=== PATIENT | male | born 1935 | race Caucasian/White ===

== ENCOUNTER → 2017-04-28 | Outpatient (CLI) | payer MEDICARE ==
--- NOTE | 2017-04-28 22:01 | XR ---
EXAMINATION TYPE: XR knee complete RT DATE OF EXAM: 04/28/2017 COMPARISON: NONE HISTORY: 81-year-old male right knee pain TECHNIQUE: 3 views FINDINGS: Moderate to severe joint space narrowing suggested in the patellofemoral compartment with marginal sp urring. Trace knee joint effusion. Mild marginal spurring in the medial compartment. No acute fractur e or dislocation seen. Extensor mechanism intact. Vascular calcifications noted. IMPRESSION: Tricompartmental osteoarthrosis, this may be moderate to severe in the patellofemoral compartment and at least mild in the medial compartment. Trace knee joint effusion likely reactive. No acute osseous abnormality seen.
== END ==
LOC: RADXRYALE 16:18
PROVIDERS: ATTEND Physician Assistant Medical
DX: M17.11 Unilateral primary osteoarthritis, right knee (principal)

== ENCOUNTER 2017-11-27 10:51 | Emergency (ER) | payer MEDICARE ==
[2017-11-27] MEDS ORDERED: MORPHINE SULFATE 2 MG/ML SYRINGE IVP STA ×2 (11:03→12:21)
--- NOTE | 2017-11-27 11:15 | ED ---
Wound/Laceration HPI - General Chief Complaint: Wound/Laceration Stated Complaint: PUNCTURE RT WRIST ARTERY Time Seen by Provider: 11/27/17 10:55 Source: patient, EMS Mode of arrival: EMS Limitations: no limitations - History of Present Illness Initial Comments: This is an 82-year-old male who presents emergent department for right forearm laceration. The patient states that he was cutting some wire with a utility knife when he suddenly hit his arm. He states that he immediately had "shooting " blood coming from his arm. He drove himself to an urgent care and [place] who called EMS. A tourniquet was placed due to the amount of bleeding that he was having any was transferred here. The tourniquet has been on for approximately one hour. The patient consented planes mostly of pain from the tourniquet. States he has not had any other injuries. some tingling in his fingertips. No other acute complaints at this time. - Related Data Home Medications Medication Instructions Recorded Confirmed Aspirin EC [Ecotrin] 325 mg PO DAILY 01/13/16 11/27/17 Atorvastatin [Lipitor] 20 mg PO HS 01/13/16 11/27/17 Metoprolol Tartrate [Lopressor] 50 mg PO BID 01/13/16 11/27/17 Ramipril 10 mg PO DAILY 01/13/16 11/27/17 Previous Rx's Medication Instructions Recorded Cephalexin [Keflex] 500 mg PO BID #14 cap 11/27/17 Allergies Allergy/AdvReac Type Severity Reaction Status Date / Time No Known Allergies Allergy Verified 11/27/17 11:21 Review of Systems ROS Statement: Those systems with pertinent positive or pertinent negative responses have been documented in the HPI. ROS Other: All systems not noted in ROS Statement are negative. Past Medical History Past Medical History: Coronary Artery Disease (CAD), Hyperlipidemia, Hypertension, Osteoarthritis (OA) History of Any Multi-Drug Resistant Organisms: None Reported Past Surgical History: Appendectomy, Cholecystectomy, Coronary Bypass/CABG Past Anesthesia/Blood Transfusion Reactions: No Reported Reaction Past Psychological History: No Psychological Hx Reported Smoking Status: Former smoker Past Alcohol Use History: Occasional Past Drug Use History: None Reported - Past Family History Mother Family Medical History: Coronary Artery Disease (CAD) Father History Unknown: Yes General Exam - General Exam Comments Initial Comments: Constitutional: Awake alert Appears comfortable Head: Normocephalic atraumatic Eyes: no conjunctival injection No scleral icterus EOMI Neck: No JVD Supple Heart: Regular rate rhythm normal S1-S2 no murmurs Lungs: Clear to auscultation bilaterally No wheezing No rales Abdomen: Soft nondistended nontender Extremities: Non edematous DP pulses intact, there is a 1.5 center laceration to the lateral aspect of the dorsum of the right forearm approximately 6-7 cm proximal to the wrist, currently no bleeding because of the tourniquet, there is a blood clot there, patient has duskiness to the entire arm below the tourniquet however is able to move his fingers and has sensation, no other injuries noticed Neuro: A&Ox3 No focal neurologic deficits Psych: Appropriate mood and affect Limitations: no limitations Course Vital Signs 11/27/17 11/27/17 11/27/17 10:54 11:07 13:00 Temperature 97.3 F L 97.3 F L Pulse Rate 74 57 L Respiratory 28 H 20 Rate Blood Pressure 164/117 139/93 105/56 O2 Sat by Pulse 98 Oximetry Procedures - Laceration Laceration #1 Consent Obtained: verbal consent Time Out Performed: No Indication: laceration Site: upper extremity Size (cm): 1 Description: linear Depth: simple, single layer, arterial injury Type of Sutures: nylon Size of Sutures: 4-0 Number of Sutures: 3 Technique: simple, interrupted Patient Tolerated Procedure: well, no complications (Procedure performed emergently to control bleeding. Was cleaned with betadine prior. Blood clot seen at wound site. [address] without anesthesia. Pt tolerated well.) Medical Decision Making - Medical Decision Making This is an 82-year-old male who presents emergency department for a laceration. Per the patient it was squirting blood at the urgent care. Upon arrival he had a tourniquet in place. In order to control bleeding 3 sutures were placed emergently. Betadine was used to clean the wound. It was not irrigated so not to disrupt the clot that was present at the site. Was unable to evaluate the wound due to emergent closure. CTA was performed to evaluate for vascular injury and showed a patent radial and ulnar artery. I did speak with Dr. Venkata saenz about possibility of opening the wound and an operative setting to evaluate further however he stated if the CT was normal this was likely not required. The patient has good radial and ulnar pulses. Has good perfusion to the hand. Has no numbness, tingling, or weakness in the extremity at all. Patient wants to go home. He was given a dose of Ancef and a tetanus shot. He' ll be sent home on Keflex. Told of the sutures removed in 10-[address] Hastings's information for follow-up. - Lab Data Result diagrams: 11/27/17 11:14 11/27/17 11:14 Lab Results 11/27/17 11/27/17 11/27/17 Range/Units 11:14 11:14 11:14 WBC 7.1 (3.8-10.6) k/uL RBC 4.83 (4.30-5.90) m/uL Hgb 14.3 (13.0-17.5) gm/dL Hct 43.0 (39.0-53.0) % MCV 89.0 (80.0-100.0) fL MCH 29.5 (25.0-35.0) pg MCHC 33.2 (31.0-37.0) g/dL RDW 12.8 (11.5-15.5) % Plt Count 167 (150-450) k/uL Neutrophils % 50 % Lymphocytes % 35 % Monocytes % 8 % Eosinophils % 3 % Basophils % 0 % Neutrophils # 3.5 (1.3-7.7) k/uL Lymphocytes # 2.5 (1.0-4.8) k/uL Monocytes # 0.6 (0-1.0) k/uL Eosinophils # 0.2 (0-0.7) k/uL Basophils # 0.0 (0-0.2) k/uL PT 10.0 (9.0-12.0) sec INR 1.0 (<1.2) APTT 22.2 (22.0-30.0) sec Sodium 139 (137-145) mmol/L Potassium 4.7 (3.5-5.1) mmol/L Chloride 102 (98-107) mmol/L Carbon Dioxide 23 (22-30) mmol/L Anion Gap 14 mmol/L BUN 17 (9-20) mg/dL Creatinine 0.83 (0.66-1.25) mg/dL Est GFR (CKD-EPI)AfAm >90 (>60 ml/min/1.73 sqM) Est GFR (CKD-EPI)NonAf 83 (>60 ml/min/1.73 sqM) Glucose 131 H (74-99) mg/dL Calcium 8.8 (8.4-10.2) mg/dL Disposition Clinical Impression: Laceration Disposition: HOME SELF-CARE Condition: Stable Instructions: Laceration (ED) Additional Instructions: Sutures removed in 10-14 days by your primary doctor. Take Keflex twice a day for [address] Fonseca in the vascular doctor and you can follow up with him as needed. Return for tingling, pain, weakness, or duskiness of your fingertips/ hand. Prescriptions: Cephalexin [Keflex] 500 mg PO BID #14 cap Is patient prescribed a controlled substance at d/c from ED?: No Referrals: Jose Swenson DO [Primary Care Provider] - 1-2 days
[2017-11-27 11:34] LABS: Basophils % (A) 0 %; Eosinophils # (A) 0.2 k/uL (0-0.7); Eosinophils % (A) 3 %; HGB 14.3 gm/dL (13.0-17.5); Lymphocytes # (A) 2.5 k/uL (1.0-4.8); Lymphocytes % (A) 35 %; MCH 29.5 pg (25.0-35.0); MCHC 33.2 g/dL (31.0-37.0); Mean Platelet Volume 7.2; Monocytes # (A) 0.6 k/uL (0-1.0); Monocytes % (A) 8 %; Neutrophils # (A) 3.5 k/uL (1.3-7.7); Neutrophils % (A) 50 %; Platelet Count 167 k/uL (150-450); RBC 4.83 m/uL (4.30-5.90); RDW 12.8 % (11.5-15.5); WBC 7.1 k/uL (3.8-10.6)
[2017-11-27 11:46] LABS: Anion Gap 14 mmol/L; Blood Urea Nitrogen 17 mg/dL (9-20); Calcium 8.8 mg/dL (8.4-10.2); Carbon Dioxide 23 mmol/L (22-30); Chloride 102 mmol/L (98-107); Glucose 131 mg/dL (74-99); Potassium 4.7 mmol/L (3.5-5.1); Sodium 139 mmol/L (137-145)
[2017-11-27 11:51] LABS: Partial Thromboplastin Time 22.2 sec (22.0-30.0)
--- NOTE | 2017-11-27 12:40 | CT ---
EXAMINATION TYPE: CT angio upper extremity RT DATE OF EXAM: 11/27/2017 12:30 PM COMPARISON: NONE HISTORY: Puncture at right wrist artery CT DLP: 1985.20 mGycm Automated exposure control for dose reduction was used. TECHNIQUE: Contrast enhanced CTA of the right upper extremity was performed with IV Contrast, patient injected w ith 100 ml mL of Isovue 370. . FINDINGS: There is poor opacification of the ulnar artery. There the radial artery is noted through the level o f the wrist. There appears to be soft tissue laceration radial side of the wrist at its palmar aspect . There is a small hematoma noted adjacent to the radial artery however the radial artery appears to be patent without evidence for vascular injury although opacification is less than ideal. No evidence for active extravasation. No evidence for radiopaque foreign body. Osseous structures are intact without evidence for fracture or lesion. IMPRESSION: 1. Less than ideal opacification of the vasculature distal to the elbow however the radial artery is visualized throughout its course and there appears to be no evidence for radial artery injury. Small laceration noted adjacent to the radial artery with small hematoma identified.
[2017-11-27] MEDS ORDERED: ceFAZolin 1,000 MG in DEXTROSE/WATER 1 50ML.BAG IVPB STA (12:42)
[2017-11-27] MEDS ORDERED: DIPH,PERTUS(ACELL)TETVAC-LF 0.5 ML VIAL IM ONE (12:42)
[2017-11-27 13:14] VITALS: RESP 20
[2017-11-27 14:06] VITALS: BP 110/56; PULSE 78; TEMP 97.6
== END 2017-11-27 14:00 | disposition home or self-care (01) ==
LOC: EC 10:51
DX: S51.811D Laceration without foreign body of right forearm, subsequent encounter (principal); I25.10 Atherosclerotic heart disease of native coronary artery without angina pectoris; E78.5 Hyperlipidemia, unspecified; I10 Essential (primary) hypertension; Z87.891 Personal history of nicotine dependence; Z79.82 Long term (current) use of aspirin; Z79.899 Other long term (current) drug therapy; Z95.5 Presence of coronary angioplasty implant and graft; Z53.29 Procedure and treatment not carried out because of patient's decision for other reasons; Z23 Encounter for immunization; W26.0XXD Contact with knife, subsequent encounter
CPT/HCPCS: 99284 ×2; 12001 ×2; 96365 ×2; 96375 ×2; 90471 ×2; 99282; 36415; 80048; 85025; 85610; 85730; 73206; 90715; J2001; J2270; J0690; Q9967

== ENCOUNTER 2017-11-27 18:55 | Emergency (ER) | payer MEDICARE ==
[2017-11-27 19:06] VITALS: BP 151/82; PULSE 74; RESP 16; TEMP 98
[2017-11-27] MEDS ORDERED: LIDOCAINE 1% INJ 10MG/ML (20 ML MDV) SQ ONE (19:14)
--- NOTE | 2017-11-27 19:31 | ED ---
General Adult HPI - General Chief complaint: Recheck/Abnormal Lab/Rx Stated complaint: Wrist lacertion Time Seen by Provider: 11/27/17 19:09 Source: patient Mode of arrival: ambulatory Limitations: no limitations - History of Present Illness Initial comments: This is an 82-year-old male who presented for rebleeding of his right wrist laceration. I evaluated the patient earlier today and he had a CTA that showed an intact radial artery. I spoke with Dr. Hastings do not feel that any further workup was appropriate. He left the department with controlled bleeding. He states that he got home in the bleeding reoccurred so he turned around and came back to emergency department. He denies any lightheadedness or chest pain. No shortness of breath. No other complaints. - Related Data Home Medications Medication Instructions Recorded Confirmed Aspirin EC [Ecotrin] 325 mg PO DAILY 01/13/16 11/27/17 Atorvastatin [Lipitor] 20 mg PO HS 01/13/16 11/27/17 Metoprolol Tartrate [Lopressor] 50 mg PO BID 01/13/16 11/27/17 Ramipril 10 mg PO DAILY 01/13/16 11/27/17 Previous Rx's Medication Instructions Recorded Cephalexin [Keflex] 500 mg PO BID #14 cap 11/27/17 Allergies Allergy/AdvReac Type Severity Reaction Status Date / Time No Known Allergies Allergy Verified 11/27/17 19:06 Review of Systems ROS Statement: Those systems with pertinent positive or pertinent negative responses have been documented in the HPI. ROS Other: All systems not noted in ROS Statement are negative. Past Medical History Past Medical History: Coronary Artery Disease (CAD), Hyperlipidemia, Hypertension, Osteoarthritis (OA) History of Any Multi-Drug Resistant Organisms: None Reported Past Surgical History: Appendectomy, Cholecystectomy, Coronary Bypass/CABG Past Anesthesia/Blood Transfusion Reactions: No Reported Reaction Past Psychological History: No Psychological Hx Reported Smoking Status: Former smoker Past Alcohol Use History: Occasional Past Drug Use History: None Reported - Past Family History Mother Family Medical History: Coronary Artery Disease (CAD) Father History Unknown: Yes General Exam - General Exam Comments Initial Comments: Constitutional: Awake alert Appears comfortable Head: Normocephalic atraumatic Eyes: no conjunctival injection No scleral icterus EOMI Neck: No JVD Supple Heart: Regular rate rhythm normal S1-S2 no murmurs Lungs: Clear to auscultation bilaterally No wheezing No rales Abdomen: Soft nondistended nontender Extremities: Non edematous DP pulses intact Radial pulses intact, laceration to the dorsum of the right wrist appears intact without any active bleeding at this time Neuro: A&Ox3 No focal neurologic deficits Psych: Appropriate mood and affect Limitations: no limitations Course Vital Signs 11/27/17 19:03 Temperature 98 F Pulse Rate 74 Respiratory 16 Rate Blood Pressure 151/82 O2 Sat by Pulse 95 Oximetry Procedures - Laceration Laceration #1 Consent Obtained: verbal consent Time Out Performed: Yes Indication: laceration Site: upper extremity Size (cm): 1 Description: linear Anesthetic Used: lidocaine 1% Anesthesia Technique: local infiltration Type of Sutures: nylon Size of Sutures: 4-0 Number of Sutures: 2 Technique: horizontal mattress Patient Tolerated Procedure: well, no complications Additional Comments: 2 additional horizontal mattress sutures were placed in addition to the 3 simple sutures placed earlier today Medical Decision Making - Medical Decision Making This is an 82-year-old male who came to the emergency department for rebleeding of his laceration. The patient had 2 mattress sutures placed with good hemostasis. He had no active bleeding in the emergency department. Patient was discharged home with the same instructions given earlier today. He has Keflex. He can follow-up with his primary doctor for removal of the sutures. He is given Dr. Hastings's information as well. Disposition Clinical Impression: Laceration Disposition: HOME SELF-CARE Condition: Stable Instructions: Care For Your Stitches (ED), Laceration (ED) Is patient prescribed a controlled substance at d/c from ED?: No Referrals: None,Stated [Primary Care Provider] - 1-2 days
== END 2017-11-27 19:35 | disposition home or self-care (01) ==
LOC: EC 18:55
DX: S61.511A Laceration without foreign body of right wrist, initial encounter (principal); E78.5 Hyperlipidemia, unspecified; I10 Essential (primary) hypertension; I25.10 Atherosclerotic heart disease of native coronary artery without angina pectoris; M19.90 Unspecified osteoarthritis, unspecified site; Z87.891 Personal history of nicotine dependence; Z79.82 Long term (current) use of aspirin; Z79.899 Other long term (current) drug therapy; X58.XXXA Exposure to other specified factors, initial encounter
CPT/HCPCS: 99282; 12001; J2001

== ENCOUNTER 2021-05-25 18:33 | Observation (INO) | payer MEDICARE ==
--- NOTE | 2021-05-25 19:11 | ED ---
General Adult HPI - General Chief complaint: Chest Pain Stated complaint: Chest Pain,Cardiac Patient Time Seen by Provider: 05/25/21 18:43 Source: patient, family, RN notes reviewed, old records reviewed Mode of arrival: wheelchair Limitations: no limitations - History of Present Illness Initial comments: 85-year-old male history of CAD status post CABG presenting for evaluation of central chest pain which radiates to the left shoulder. This has been intermittent over the past several days. Pain is currently essentially nonexistent. He has taken 2 sublingual nitroglycerin with minimal relief. He denies vomiting or diaphoresis. - Related Data Home Medications Medication Instructions Recorded Confirmed Atorvastatin [Lipitor] 20 mg PO HS 01/13/16 05/25/21 Metoprolol Tartrate [Lopressor] 50 mg PO BID 01/13/16 05/25/21 Ramipril 10 mg PO DAILY 01/13/16 05/25/21 Aspirin EC [Ecotrin Low Dose] 81 mg PO DAILY 05/25/21 05/25/21 Allergies Allergy/AdvReac Type Severity Reaction Status Date / Time No Known Allergies Allergy Verified 05/25/21 20:15 Review of Systems ROS Statement: Those systems with pertinent positive or pertinent negative responses have been documented in the HPI. ROS Other: All systems not noted in ROS Statement are negative. Past Medical History Past Medical History: Coronary Artery Disease (CAD), Hyperlipidemia, Hypertension, Osteoarthritis (OA) History of Any Multi-Drug Resistant Organisms: None Reported Past Surgical History: Appendectomy, Cholecystectomy, Coronary Bypass/CABG Past Anesthesia/Blood Transfusion Reactions: No Reported Reaction Past Psychological History: No Psychological Hx Reported Smoking Status: Never smoker Past Alcohol Use History: Occasional Past Drug Use History: Marijuana - Past Family History Mother Family Medical History: Coronary Artery Disease (CAD) Father History Unknown: Yes General Exam Limitations: no limitations General appearance: alert, in no apparent distress Head exam: Present: atraumatic, normocephalic Eye exam: Present: normal appearance, PERRL ENT exam: Present: normal exam Neck exam: Present: normal inspection. Absent: tenderness, meningismus Respiratory exam: Present: normal lung sounds bilaterally. Absent: respiratory distress, wheezes Cardiovascular Exam: Present: regular rate, normal rhythm GI/Abdominal exam: Present: soft. Absent: distended, tenderness, guarding Extremities exam: Present: normal inspection, normal capillary refill. Absent: pedal edema Neurological exam: Present: alert, oriented X3, CN II-XII intact. Absent: motor sensory deficit Psychiatric exam: Present: normal affect, normal mood Skin exam: Present: warm, dry, intact. Absent: cyanosis, diaphoretic Course Vital Signs 05/25/21 05/25/21 05/25/21 18:35 19:36 19:38 Temperature 98.8 F Pulse Rate 67 68 Pulse Rate [ 73 Media Relations Associate ] Respiratory 18 18 Rate Blood Pressure 144/78 126/61 O2 Sat by Pulse 96 96 Oximetry EKG Findings - EKG Comments: EKG Findings:: EKG: Sinus bradycardia, low voltage, rate of 59 NJ interval 182, QRS duration 96, QTC 385, no ST segment elevation. Medical Decision Making - Medical Decision Making 85-year-old male presenting with intermittent chest pain over the past 3 days. History of CAD. Patient states that the pain does radiate to his left shoulder. He is chest pain-free at the time my evaluation. EKG is negative for ST segment elevation. Chest x-ray negative for acute cardiopulmonary disease. He has a normal CBC, normal CMP, negative initial troponin. Given the patient's risk factors he will be kept in observation for serial cardiac enzymes, telemetry, cardiology consultation. Case discussed with Sara call for [facility] - Lab Data Result diagrams: 05/25/21 19:38 05/25/21 19:38 Lab Results 05/25/21 05/25/21 05/25/21 Range/Units 19:38 19:38 19:38 WBC 5.4 (3.8-10.6) k/uL RBC 4.32 (4.30-5.90) m/uL Hgb 13.4 (13.0-17.5) gm/dL Hct 38.2 L (39.0-53.0) % MCV 88.4 (80.0-100.0) fL MCH 30.9 (25.0-35.0) pg MCHC 35.0 (31.0-37.0) g/dL RDW 12.4 (11.5-15.5) % Plt Count 138 L (150-450) k/uL MPV 7.6 Neutrophils % 57 % Lymphocytes % 29 % Monocytes % 8 % Eosinophils % 4 % Basophils % 0 % Neutrophils # 3.1 (1.3-7.7) k/uL Lymphocytes # 1.6 (1.0-4.8) k/uL Monocytes # 0.4 (0-1.0) k/uL Eosinophils # 0.2 (0-0.7) k/uL Basophils # 0.0 (0-0.2) k/uL PT 10.3 (9.0-12.0) sec INR 1.0 (<1.2) APTT 22.8 (22.0-30.0) sec Sodium 137 (137-145) mmol/L Potassium 4.3 (3.5-5.1) mmol/L Chloride 104 (98-107) mmol/L Carbon Dioxide 25 (22-30) mmol/L Anion Gap 8 mmol/L BUN 17 (9-20) mg/dL Creatinine 0.86 (0.66-1.25) mg/dL Est GFR (CKD-EPI)AfAm >90 (>60 ml/min/1.73 sqM) Est GFR (CKD-EPI)NonAf 80 (>60 ml/min/1.73 sqM) Glucose 113 H (74-99) mg/dL Calcium 9.2 (8.4-10.2) mg/dL Magnesium 2.0 (1.6-2.3) mg/dL Total Bilirubin 0.4 (0.2-1.3) mg/dL AST 27 (17-59) U/L ALT 20 (4-49) U/L Alkaline Phosphatase 76 (38-126) U/L Troponin I (0.000-0.034) ng/mL NT-Pro-B Natriuret Pep pg/mL Total Protein 6.5 (6.3-8.2) g/dL Albumin 3.7 (3.5-5.0) g/dL Lipase 136 (23-300) U/L 05/25/21 05/25/21 Range/Units 19:38 19:38 WBC (3.8-10.6) k/uL RBC (4.30-5.90) m/uL Hgb (13.0-17.5) gm/dL Hct (39.0-53.0) % MCV (80.0-100.0) fL MCH (25.0-35.0) pg MCHC (31.0-37.0) g/dL RDW (11.5-15.5) % Plt Count (150-450) k/uL MPV Neutrophils % % Lymphocytes % % Monocytes % % Eosinophils % % Basophils % % Neutrophils # (1.3-7.7) k/uL Lymphocytes # (1.0-4.8) k/uL Monocytes # (0-1.0) k/uL Eosinophils # (0-0.7) k/uL Basophils # (0-0.2) k/uL PT (9.0-12.0) sec INR (<1.2) APTT (22.0-30.0) sec Sodium (137-145) mmol/L Potassium (3.5-5.1) mmol/L Chloride (98-107) mmol/L Carbon Dioxide (22-30) mmol/L Anion Gap mmol/L BUN (9-20) mg/dL Creatinine (0.66-1.25) mg/dL Est GFR (CKD-EPI)AfAm (>60 ml/min/1.73 sqM) Est GFR (CKD-EPI)NonAf (>60 ml/min/1.73 sqM) Glucose (74-99) mg/dL Calcium (8.4-10.2) mg/dL Magnesium (1.6-2.3) mg/dL Total Bilirubin (0.2-1.3) mg/dL AST (17-59) U/L ALT (4-49) U/L Alkaline Phosphatase (38-126) U/L Troponin I <0.012 (0.000-0.034) ng/mL NT-Pro-B Natriuret Pep 470 pg/mL Total Protein (6.3-8.2) g/dL Albumin (3.5-5.0) g/dL Lipase (23-300) U/L Disposition Clinical Impression: Chest pain Disposition: ADMITTED IP TO THIS [facility] Condition: Stable Is patient prescribed a controlled substance at d/c from ED?: No Referrals: Jose Swenson DO [Primary Care Provider] - 1-2 days Decision to Admit Reason: Admit from EC Decision Date: 05/25/21 Decision Time: 20:39
[2021-05-25 19:55] LABS: Basophils % (A) 0 %; Eosinophils # (A) 0.2 k/uL (0-0.7); Eosinophils % (A) 4 %; HCT 38.2 % (39.0-53.0); HGB 13.4 gm/dL (13.0-17.5); Lymphocytes # (A) 1.6 k/uL (1.0-4.8); Lymphocytes % (A) 29 %; MCH 30.9 pg (25.0-35.0); MCV 88.4 fL (80.0-100.0); Mean Platelet Volume 7.6; Monocytes # (A) 0.4 k/uL (0-1.0); Monocytes % (A) 8 %; Neutrophils # (A) 3.1 k/uL (1.3-7.7); Neutrophils % (A) 57 %; Platelet Count 138 k/uL (150-450); RBC 4.32 m/uL (4.30-5.90); RDW 12.4 % (11.5-15.5); WBC 5.4 k/uL (3.8-10.6)
[2021-05-25 19:57] LABS: ALT 20 U/L (4-49); AST 27 U/L (17-59); African American GFR (CKD) >90 (>60 ml/min/1.73 sqM); Albumin 3.7 g/dL (3.5-5.0); Alkaline Phosphatase 76 U/L (38-126); Anion Gap 8 mmol/L; Blood Urea Nitrogen 17 mg/dL (9-20); Calcium 9.2 mg/dL (8.4-10.2); Carbon Dioxide 25 mmol/L (22-30); Chloride 104 mmol/L (98-107); Glucose 113 mg/dL (74-99); Lipase 136 U/L (23-300); Non-African American GFR(CKD) 80 (>60 ml/min/1.73 sqM); Potassium 4.3 mmol/L (3.5-5.1); Sodium 137 mmol/L (137-145); Total Bilirubin 0.4 mg/dL (0.2-1.3); Total Protein 6.5 g/dL (6.3-8.2)
--- NOTE | 2021-05-25 20:11 | XR ---
EXAMINATION TYPE: XR chest 2V DATE OF EXAM: 05/25/2021 COMPARISON: 01/13/2016 HISTORY: Chest pain TECHNIQUE: 2 views FINDINGS: Heart is normal. Lungs are clear of consolidation. 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 There are sternal wires. There are no rosi r masses. Thoracic spine is intact. IMPRESSION: No active cardiopulmonary disease. No change.
[2021-05-25 20:18] LABS: Partial Thromboplastin Time 22.8 sec (22.0-30.0); Prothrombin Time 10.3 sec (9.0-12.0)
[2021-05-25] MEDS ORDERED: ASPIRIN 325 MG TAB PO STA (20:31)
[2021-05-25] MEDS ORDERED: NITROGLYCERIN SL TABS 0.4 MG TAB SUBLINGUAL PRN (20:31)
[2021-05-25] MEDS ORDERED: NALOXONE 0.4 MG/ML 1 ML VIAL IV PRN (20:36)
[2021-05-25] MEDS ORDERED: ACETAMINOPHEN TAB 325 MG TAB PO PRN (20:36)
[2021-05-25] MEDS ORDERED: MORPHINE SULFATE 4 MG/ML SYRINGE IV PRN (20:36)
[2021-05-26 08:40] VITALS: PULSE 57; RESP 18
[2021-05-26] MEDS ORDERED: ASPIRIN 325 MG TAB PO SCH (09:00)
--- NOTE | 2021-05-26 10:31 | P.HPIM ---
History of Present Illness 85-year-old male with history of coronary artery disease and CABG in the past came in with complaints of chest pain 9/10 in severity restarted today on and off lasted for a few minutes and resolved with nitroglycerin radiating to the left shoulder area. Patient had nonspecific ST-T wave changes in the EKG troponins are negative. Pain is not related to food nonpleuritic in nature patient just pain started when he was on the tractor. Patient denied any syncope patient had lightheadedness diaphoresis. Currently he was consulted. REVIEW OF SYSTEMS: CONSTITUTIONAL: No fever, no malaise, no fatigue. HEENT: No recent visual problems or hearing problems. Denied any sore throat. CARDIOVASCULAR: No orthopnea, PND, no palpitations, no syncope. PULMONARY: No shortness of breath, no cough, no hemoptysis. GASTROINTESTINAL: No diarrhea, no nausea, no vomiting, no abdominal pain. NEUROLOGICAL: No headaches, no weakness, no numbness. HEMATOLOGICAL: Denies any bleeding or petechiae. GENITOURINARY: Denies any burning micturition, frequency, or urgency. MUSCULOSKELETAL/RHEUMATOLOGICAL: Denies any joint pain, swelling, or any muscle pain. ENDOCRINE: Denies any polyuria or polydipsia. The rest of the 14-point review of systems is negative. PHYSICAL EXAMINATION: GENERAL: The patient is alert and oriented x3, not in any acute distress. Well developed, well nourished. HEENT: Pupils are round and equally reacting to light. EOMI. No scleral icterus. No conjunctival pallor. Normocephalic, atraumatic. No pharyngeal erythema. No thyromegaly. CARDIOVASCULAR: S1 and S2 present. No murmurs, rubs, or gallops. PULMONARY: Chest is clear to auscultation, no wheezing or crackles. ABDOMEN: Soft, nontender, nondistended, normoactive bowel sounds. No palpable organomegaly. MUSCULOSKELETAL: No joint swelling or deformity. EXTREMITIES: No cyanosis, clubbing, or pedal edema. NEUROLOGICAL: Gross neurological examination did not reveal any focal deficits. SKIN: No rashes. Assessment and plan -Chest pain: We will rule out the acute coronary syndromes and unstable angina. Cardiology will evaluate the patient. Further management depending on cardiology. If cardiology recommends outpatient stress test patient will be discharged at that time. -Hypertension -hyperlipidemia DVT prophylaxis: Early ambulation Past Medical History Past Medical History: Coronary Artery Disease (CAD), Hyperlipidemia, Hypertension, Osteoarthritis (OA) History of Any Multi-Drug Resistant Organisms: None Reported Past Surgical History: Appendectomy, Cholecystectomy, Coronary Bypass/CABG Past Anesthesia/Blood Transfusion Reactions: No Reported Reaction Past Psychological History: No Psychological Hx Reported Smoking Status: Former smoker Past Alcohol Use History: Occasional Past Drug Use History: Marijuana - Past Family History Mother Family Medical History: Coronary Artery Disease (CAD) Father History Unknown: Yes Medications and Allergies Home Medications Medication Instructions Recorded Confirmed Type Atorvastatin [Lipitor] 20 mg PO HS 01/13/16 05/25/21 History Metoprolol Tartrate [Lopressor] 50 mg PO BID 01/13/16 05/25/21 History Ramipril 10 mg PO DAILY 01/13/16 05/25/21 History Aspirin EC [Ecotrin Low Dose] 81 mg PO DAILY 05/25/21 05/25/21 History Allergies Allergy/AdvReac Type Severity Reaction Status Date / Time No Known Allergies Allergy Verified 05/25/21 20:15 Physical Exam Vitals: Vital Signs Temp Pulse Pulse Resp BP BP Pulse Ox 05/26/21 07:00 97.6 F 57 L 18 138/65 95 05/26/21 02:00 51 L 05/26/21 01:29 98.1 F 51 L 19 116/59 94 L 05/25/21 23:04 97.9 F 53 L 17 158/69 98 05/25/21 23:03 97.7 F 53 L 18 158/69 98 05/25/21 21:30 98.3 F 52 L 18 143/60 96 05/25/21 19:38 73 05/25/21 19:36 68 18 126/61 96 05/25/21 18:35 98.8 F 67 18 144/78 96 Intake and Output 05/25/21 05/26/21 05/26/21 22:59 06:59 14:59 Other: # Voids 2 Weight 81.647 kg 81.647 kg Results CBC & Chem 7: 05/25/21 19:38 05/25/21 19:38 Labs: Abnormal Lab Results - Last 24 Hours (Table) 05/25/21 05/25/21 Range/Units 19:38 19:38 Hct 38.2 L (39.0-53.0) % Plt Count 138 L (150-450) k/uL Glucose 113 H (74-99) mg/dL Thrombosis Risk Factor Assmnt - Choose All That Apply Each Risk Factor Represents 3 Points: Age 75 years or older Thrombosis Risk Factor Assessment Total Risk Factor Score: 3 Thrombosis Risk Factor Assessment Level: Moderate Risk
[2021-05-26] MEDS ORDERED: METOPROLOL TARTRATE 50 MG TAB PO SCH (10:45)
[2021-05-26] MEDS ORDERED: lisinopriL 20 MG TAB PO SCH (10:45)
--- NOTE | 2021-05-26 14:01 | ECHOF ---
Referral Reason:Chest pain MEASUREMENTS -------- HEIGHT: 177.8 cm WEIGHT: 81.6 kg BP: 138/65 IVSd: 1.3 cm (0.6 - 1.1) LVIDd: 4.7 cm (3.9 - 5.3) LVPWd: 1.2 cm (0.6 - 1.1) IVSs: 1.7 cm LVIDs: 3.5 cm LVPWs: 1.6 cm LAESV Index (A-L): 30.64 ml/m Ao Diam: 3.9 cm (2.0 - 3.7) AV Cusp: 1.8 cm (1.5 - 2.6) MV E David: 0.54 m/s MV DecT: 160 ms MV A David: 0.74 m/s MV E/A Ratio: 0.73 AR PHT: 710 ms RAP: 5.00 mmHg RVSP: 40.13 mmHg FINDINGS -------- Resting bradycardia (HR<60bpm). This was a technically adequate study. The left ventricular size is normal. There is mild concentric left ventricular hypertrophy. Overa ll left ventricular systolic function is mildly impaired with, an EF between 45 - 50 %. Septal wall motion is delayed and consistent with prior cardiac surgery. Mid inferior LV wall motion is hypoki netic. The right ventricle is normal in size. LA is midly dilated 29-33ml/m2. The right atrium was not well visualized. Interatrial and interventricular septum intact. There is mild aortic regurgitation. There is no evidence of aortic stenosis. Mild mitral regurgitation is present. Mild tricuspid regurgitation present. There is mild pulmonary hypertension. The right ventricular systolic pressure, as measured by Doppler, is 40.13mmHg. There is no pulmonic regurgitation present. The aortic root size is normal. IVC Not well visulized. There is no pericardial effusion. CONCLUSIONS -------- 1. The left ventricular size is normal. 2. There is mild concentric left ventricular hypertrophy. 3. Overall left ventricular systolic function is mildly impaired with, an EF between 45 - 50 %. 4. Mid inferior LV wall motion is hypokinetic. 5. LA is midly dilated 29-33ml/m2. 6. There is mild aortic regurgitation. 7. Mild mitral regurgitation is present. 8. Mild tricuspid regurgitation present. 9. There is mild pulmonary hypertension. 10. The right ventricular systolic pressure, as measured by Doppler, is 40.13mmHg. FLIGHT INFORMATION EXPEDITER: Shanda Corona RDCS
--- NOTE | 2021-05-26 14:20 | P.CRDCN ---
History of Present Illness Consult date: 05/26/21 Requesting physician: Gerardo Marks Reason for Consult (text): chest pain Chief complaint: chest pain History of present illness: This is a pleasant 85-year-old gentleman who follows in the office with Dr. Swartz. He has a history of hypertension, hyperlipidemia, prior nicotine dependence, CAD with prior 5 vessel CABG over 20 years ago and ischemic cardiomyopathy with most recent echocardiogram from June 2019 showing ejection fraction of 45%. He presented to the emergency department with complaints of left-sided chest discomfort that radiated into his left shoulder, occurred at rest and could last a whole day or 2. He feels this is a different type of pain than what he experienced prior to his CABG many years ago. Cardiac enzymes have been unremarkable. EKG shows sinus bradycardia with nonspecific T- wave abnormalities but no evidence of acute ischemia and no significant change compared to previous EKG. Patient did undergo Lexiscan MPI about a year ago which showed inferior wall fixed defect with no evidence of stress-induced ischemia. The pressure was elevated last name but is well controlled this morning. Upon examination he is resting comfortably in bed. He has no further complaints of chest discomfort. He denies any shortness of breath, orthopnea or PND. He has no edema. He denies any palpitations, syncope or near syncope. Patient is quite anxious to go home. Past Medical History Past Medical History: Coronary Artery Disease (CAD), Hyperlipidemia, Hypertension, Osteoarthritis (OA) History of Any Multi-Drug Resistant Organisms: None Reported Past Surgical History: Appendectomy, Cholecystectomy, Coronary Bypass/CABG Past Anesthesia/Blood Transfusion Reactions: No Reported Reaction Past Psychological History: No Psychological Hx Reported Smoking Status: Former smoker Past Alcohol Use History: Occasional Past Drug Use History: Marijuana - Past Family History Mother Family Medical History: Coronary Artery Disease (CAD) Father History Unknown: Yes Medications and Allergies Home Medications Medication Instructions Recorded Confirmed Type Atorvastatin [Lipitor] 20 mg PO HS 01/13/16 05/25/21 History Metoprolol Tartrate [Lopressor] 50 mg PO BID 01/13/16 05/25/21 History Ramipril 10 mg PO DAILY 01/13/16 05/25/21 History Aspirin EC [Ecotrin Low Dose] 81 mg PO DAILY 05/25/21 05/25/21 History Allergies Allergy/AdvReac Type Severity Reaction Status Date / Time No Known Allergies Allergy Verified 12/03/21 20:15 Physical Exam Vitals: Vital Signs Temp Pulse Pulse Resp BP BP Pulse Ox 05/26/21 07:00 97.6 F 57 L 18 138/65 95 05/26/21 02:00 51 L 05/26/21 01:29 98.1 F 51 L 19 116/59 94 L 05/25/21 23:04 97.9 F 53 L 17 158/69 98 05/25/21 23:03 97.7 F 53 L 18 158/69 98 05/25/21 21:30 98.3 F 52 L 18 143/60 96 05/25/21 19:38 73 05/25/21 19:36 68 18 126/61 96 05/25/21 18:35 98.8 F 67 18 144/78 96 Intake and Output 05/25/21 05/26/21 05/26/21 22:59 06:59 14:59 Other: # Voids 2 Weight 81.647 kg 81.647 kg PHYSICAL EXAMINATION: This is a 85-year-old gentleman in no apparent distress at the time of my examination. VITAL SIGNS: Blood pressure 138/65, heart rate 57, respirations 18, temp 97.6F. Patient is 95 % on air. HEENT: Head is atraumatic, normocephalic. Pupils are equal, round. Sclerae anicteric. Conjunctivae are clear. Mucous membranes of the mouth are moist. Neck is supple. There is no elevated jugular venous pressure. No carotid bruit is heard. CHEST EXAMINATION: Clear to auscultation bilaterally. No wheezes rales or rhonchi. Respirations even and nonlabored. HEART EXAMINATION: Heart regular, positive S1 and S2. No S3. No S4. No clicks, rubs or murmurs. ABDOMEN: Soft, nontender. Bowel sounds are heard. No organomegaly noted. EXTREMITIES: 2+ peripheral pulses with no evidence of peripheral edema and no calf tenderness noted. NEUROLOGIC EXAMINATION: Patient is awake, alert and oriented x3. Results 05/25/21 19:38 05/25/21 19:38 Cardiac Enzymes 05/25/21 05/25/21 05/25/21 Range/Units 19:38 19:38 21:08 AST 27 (17-59) U/L Troponin I <0.012 <0.012 (0.000-0.034) ng/mL 05/26/21 Range/Units 01:30 AST (17-59) U/L Troponin I <0.012 (0.000-0.034) ng/mL Coagulation 05/25/21 Range/Units 19:38 PT 10.3 (9.0-12.0) sec APTT 22.8 (22.0-30.0) sec CBC 05/25/21 Range/Units 19:38 WBC 5.4 (3.8-10.6) k/uL RBC 4.32 (4.30-5.90) m/uL Hgb 13.4 (13.0-17.5) gm/dL Hct 38.2 L (39.0-53.0) % Plt Count 138 L (150-450) k/uL Comprehensive Metabolic Panel 05/25/21 Range/Units 19:38 Sodium 137 (137-145) mmol/L Potassium 4.3 (3.5-5.1) mmol/L Chloride 104 (98-107) mmol/L Carbon Dioxide 25 (22-30) mmol/L BUN 17 (9-20) mg/dL Creatinine 0.86 (0.66-1.25) mg/dL Glucose 113 H (74-99) mg/dL Calcium 9.2 (8.4-10.2) mg/dL AST 27 (17-59) U/L ALT 20 (4-49) U/L Alkaline Phosphatase 76 (38-126) U/L Total Protein 6.5 (6.3-8.2) g/dL Albumin 3.7 (3.5-5.0) g/dL Current Medications Generic Name Dose Route Start Last Admin Trade Name Freq PRN Reason Stop Dose Admin Acetaminophen 650 mg 05/25/21 20:36 Acetaminophen Tab 325 Mg Tab PO Q6HR PRN Mild Pain or Fever > 100.5 Aspirin 325 mg 05/26/21 09:00 05/26/21 09:17 Aspirin 325 Mg Tab PO 325 mg DAILY [facility] Administration Atorvastatin Calcium 20 mg 05/26/21 21:00 Atorvastatin 20 Mg Tab PO HS [facility] Metoprolol Tartrate 50 mg 05/26/21 10:30 Metoprolol Tartrate 50 Mg Tab PO BID [facility] Morphine Sulfate 4 mg 05/25/21 20:36 Morphine Sulfate 4 Mg/Ml Syringe IV Q4HR PRN Severe Pain Naloxone HCl 0.2 mg 05/25/21 20:36 Naloxone 0.4 Mg/Ml 1 Ml Vial IV Q2M PRN Opioid Reversal Nitroglycerin 0.4 mg 05/25/21 20:31 Nitroglycerin Sl Tabs 0.4 Mg Tab SUBLINGUAL Q5M PRN Chest Pain Non-Formulary Medication 81 mg 05/27/21 09:00 Aspirin Ec PO DAILY KESHAV Non-Formulary Medication 10 mg 05/26/21 10:30 Ramipril [Ramipril] PO DAILY KESHAV Intake and Output 05/25/21 05/26/21 05/26/21 22:59 06:59 14:59 Other: # Voids 2 Weight 81.647 kg 81.647 kg 05/25/21 19:38 05/25/21 19:38 Assessment and Plan Assessment: #1 symptoms of chest discomfort, acute coronary event has been ruled out, troponins have been negative 3 and EKG shows no acute ischemic changes #2 CAD with prior CABG 5 over 20 years ago #3 hypertension #4 hyperlipidemia Plan: From cardiology's perspective medications were reviewed and we will add an oral nitrate. We'll obtain a 2-D echo with Doppler study to assess cardiac structure and function. Increase patient's activity. If patient remains chest pain-free and there are no significant changes on echocardiogram patient may be discharged home and follow up next week in the office with Dr. Swartz. The above dictated assessment and findings were discussed with signing physician. The impression and plan of care have been directed as dictated. Vashti Salmeron, Nurse Practitioner, acting as scribe for signing physician.
[2021-05-26] MEDS ORDERED: ISOSORBIDE MONONITRATE ER 30 MG TAB.ER.24H PO SCH (14:30)
[2021-05-26 15:19] VITALS: BP 136/66; TEMP 98
[2021-05-26] MEDS ORDERED: ATORVASTATIN 20 MG TAB PO SCH (21:00)
[2021-05-27] MEDS ORDERED: ASPIRIN 81 MG PO SCH (09:00)
== END 2021-05-26 15:40 | disposition home or self-care (01) ==
LOC: EC 18:33 → 6NMEDSUR 20:37
PROVIDERS: ADMIT Hospitalist; ATTEND Hospitalist
DX: R07.89 Other chest pain (principal); I25.10 Atherosclerotic heart disease of native coronary artery without angina pectoris; R00.1 Bradycardia, unspecified; I25.5 Ischemic cardiomyopathy; E78.5 Hyperlipidemia, unspecified; I10 Essential (primary) hypertension; M19.90 Unspecified osteoarthritis, unspecified site; Z20.822 Contact with and (suspected) exposure to COVID-19; Z90.49 Acquired absence of other specified parts of digestive tract; Z95.1 Presence of aortocoronary bypass graft; Z87.891 Personal history of nicotine dependence; Z79.899 Other long term (current) drug therapy; Z79.82 Long term (current) use of aspirin; Z82.49 Family history of ischemic heart disease and other diseases of the circulatory system
CPT/HCPCS: 99285; 36415; 93005; 93306; 83880; 80053; 83690; 83735; 84484 ×2; 85025; 85610; 85730; 87635; 71046; G0378 ×2

== ENCOUNTER → 2021-12-13 | Outpatient (CLI) | payer MEDICARE ==
[2021-12-13 23:03] LABS: ALT 32 U/L (10-49); AST 25 U/L (14-35); African American GFR (CKD) 86.8 (60.0-200.0); Albumin 4.1 g/dL (3.8-4.9); Albumin/Globulin Ratio 1.64 (1.60-3.17); Alkaline Phosphatase 99 U/L (41-126); BUN/Creat Ratio 18.24 Ratio (12.00-20.00); Calcium 9.2 mg/dL (8.7-10.3); Carbon Dioxide 25.6 mmol/L (20.0-27.5); Chloride 100 mmol/L (96-109); Chol/HDL Ratio 3.34 Ratio; Globulin 2.5 g/dL (1.6-3.3); Glucose 106 mg/dL (70-110); LDL Cholesterol,Calculated 38.6 mg/dL (0.0-131.0); Non-African American GFR(CKD) 74.9 (60.0-200.0); Potassium 5.1 mmol/L (3.5-5.5); Sodium 137 mmol/L (135-145); Total Protein 6.6 g/dL (6.2-8.2)
== END | disposition home or self-care (01) ==
LOC: LABWHC1 15:47
PROVIDERS: ATTEND Internal Medicine Interventional Cardiology
DX: E78.2 Mixed hyperlipidemia (principal)
CPT/HCPCS: 36415; 80053; 80061

== ENCOUNTER 2022-03-02 12:30 | Emergency (ER) | payer MEDICARE ==
[2022-03-02 12:45] VITALS: RESP 18
[2022-03-02] MEDS ORDERED: SODIUM CHLORIDE 0.9% 1,000 ML IV STA (14:10)
[2022-03-02] MEDS ORDERED: ONDANSETRON 4 MG/2 ML VIAL IVP STA (14:10)
[2022-03-02 14:28] LABS: Basophils % (A) 0 %; Eosinophils # (A) 0.2 k/uL (0-0.7); Eosinophils % (A) 2 %; HCT 42.9 % (39.0-53.0); HGB 14.2 gm/dL (13.0-17.5); Lymphocytes # (A) 1.2 k/uL (1.0-4.8); Lymphocytes % (A) 14 %; MCH 30.1 pg (25.0-35.0); MCV 91.4 fL (80.0-100.0); Mean Platelet Volume 7.2; Monocytes # (A) 0.6 k/uL (0-1.0); Monocytes % (A) 7 %; Neutrophils # (A) 6.2 k/uL (1.3-7.7); Neutrophils % (A) 74 %; Platelet Count 178 k/uL (150-450); RDW 12.5 % (11.5-15.5); WBC 8.3 k/uL (3.8-10.6)
--- NOTE | 2022-03-02 14:40 | XR ---
EXAMINATION TYPE: XR chest 2V DATE OF EXAM: 03/02/2022 COMPARISON: 05/25/2021 HISTORY: Chest pain TECHNIQUE: FINDINGS: There is no heart failure nor confluent pneumonic infiltrate. Costophrenic angles are clear . There is mild pulmonary hyperinflation. There are sternal wires. Bony thorax is intact. There is li bulmaro a posterior right-sided diaphragmatic hernia. IMPRESSION: No active cardiopulmonary disease. No adverse change.
[2022-03-02 14:43] LABS: Calcium 9.8 mg/dL (8.4-10.2); Magnesium 1.9 mg/dL (1.6-2.3); Potassium 4.6 mmol/L (3.5-5.1); Total Bilirubin 0.5 mg/dL (0.2-1.3); Total Protein 6.4 g/dL (6.3-8.2)
--- NOTE | 2022-03-02 15:05 | CT ---
EXAMINATION TYPE: CT brain umberto wo con DATE OF EXAM: 03/02/2022 COMPARISON: None HISTORY: syncope, fall CT DLP: 1470 mGycm Automated exposure control for dose reduction was used. Images obtained of the brain and cervical spine without contrast. There is cerebral cortical atrophy. There is no mass effect or midline shift. No sign of intracranial hemorrhage. Calvarium is intact. Skull base is intact. There is normal aeration of the mastoid sinus es. Cervical vertebra have normal alignment. There is hypertrophic moderate anterior osteophyte formation from C4 to C7. Facet joints are intact. No compression fracture. Skull base is intact. There is no f ocal bone destruction. IMPRESSION: Cerebral atrophy. No acute intracranial abnormality. Spondylotic changes of the cervical spine. No fracture.
[2022-03-02 16:07] LABS: Appearance,Urine Clear (Clear); Bilirubin,Urine Negative (Negative); Blood,Urine Trace (Negative); Color,Urine Yellow; Glucose,Urine (UA) Negative (Negative); Hyaline Casts,Urine 3 /lpf (0-2); Ketones,Urine Negative (Negative); Leukocyte Esterase,Urine Negative (Negative); Mucus,Urine Rare /hpf; Nitrite,Urine Negative (Negative); PH, Urine 6.5 (5.0-8.0); Protein,Urine Trace (Negative); RBC,Urine 3 /hpf (0-5); Specific Gravity,Urine 1.016 (1.001-1.035); Squamous Epithelial Cell,Urine <1 /hpf (0-4); Urobilinogen,Urine <2.0 mg/dL (<2.0); WBC,Urine 3 /hpf (0-5)
[2022-03-02 16:17] VITALS: BP 121/65; PULSE 67; TEMP 98
--- NOTE | 2022-03-02 16:26 | ED ---
Nausea/Vomiting/Diarrhea HPI - General Chief complaint: Nausea/Vomiting/Diarrhea Stated complaint: syncope Time Seen by Provider: 03/02/22 13:58 Source: patient Mode of arrival: ambulatory Limitations: no limitations - History of Present Illness Initial comments: Patient is an 86-year-old male with past medical history of coronary artery disease s/p CABG, hypertension, hyperlipidemia, appendectomy, and cholecystectomy presents to the emergency department with a chief complaint of nausea and vomiting. Patient states he has been nauseous for the past 5 days with 2 episodes of vomiting this morning, nonbloody. Patient's son mentions that patient had a syncopal episode yesterday. It was unwitnessed. Patient states he felt well and was walking to the bathroom and then woke up on the carpet. He believes he was unconscious for about 1 minute. Denies blood thinner use but does use baby aspirin. Denies headache, neck pain and visual changes. Denies other injury. Denies fever, chills, lightheadedness, dizziness, chest pain, upper respiratory symptoms, shortness of breath, abdominal pain, diarrhea, burning with urination. Reports normal bowel movements, last one was this morning. MD complaint: nausea - Related Data Home Medications Medication Instructions Recorded Confirmed Atorvastatin [Lipitor] 20 mg PO HS 01/13/16 05/25/21 Metoprolol Tartrate [Lopressor] 50 mg PO BID 01/13/16 05/25/21 Ramipril 10 mg PO DAILY 01/13/16 05/25/21 Aspirin EC [Ecotrin Low Dose] 81 mg PO DAILY 05/25/21 05/25/21 Previous Rx's Medication Instructions Recorded Isosorbide Mononitrate ER [Imdur] 30 mg PO DAILY #30 tablet 05/26/21 Ondansetron Odt [Zofran Odt] 4 mg PO Q8HR PRN #12 tab 03/02/22 Allergies Allergy/AdvReac Type Severity Reaction Status Date / Time No Known Allergies Allergy Verified 03/02/22 12:42 Review of Systems ROS Statement: Those systems with pertinent positive or pertinent negative responses have been documented in the HPI. ROS Other: All systems not noted in ROS Statement are negative. Past Medical History Past Medical History: Coronary Artery Disease (CAD), Hyperlipidemia, Hyp ertension, Osteoarthritis (OA) History of Any Multi-Drug Resistant Organisms: None Reported Past Surgical History: Appendectomy, Cholecystectomy, Coronary Bypass/CABG Past Anesthesia/Blood Transfusion Reactions: No Reported Reaction Past Psychological History: No Psychological Hx Reported Smoking Status: Former smoker Past Alcohol Use History: Occasional Past Drug Use History: Marijuana - Past Family History Mother Family Medical History: Coronary Artery Disease (CAD) Father History Unknown: Yes General Exam Limitations: no limitations General appearance: alert, in no apparent distress Head exam: Present: atraumatic, normocephalic, normal inspection Neck exam: Present: normal inspection, full ROM. Absent: tenderness Respiratory exam: Present: normal lung sounds bilaterally. Absent: respiratory distress, wheezes, rales, rhonchi, stridor Cardiovascular Exam: Present: regular rate, normal rhythm, normal heart sounds. Absent: systolic murmur, diastolic murmur, rubs, gallop, clicks GI/Abdominal exam: Present: soft, normal bowel sounds. Absent: distended, tenderness, guarding, rebound, rigid Neurological exam: Present: alert, oriented X3, CN II-XII intact Psychiatric exam: Present: normal affect, normal mood Skin exam: Present: warm, dry, intact, normal color. Absent: rash Course Vital Signs 03/02/22 03/02/22 03/02/22 12:42 15:09 15:11 Temperature 98.1 F Pulse Rate 78 Respiratory 18 Rate Blood Pressure 105/66 Blood Pressure 116/61 [Right Arm Sitting] Blood Pressure [Right Arm Standing] Blood Pressure 116/54 [Right Arm Supine] O2 Sat by Pulse 96 Oximetry 03/02/22 03/02/22 15:13 16:15 Temperature 98.0 F Pulse Rate 67 Respiratory 18 Rate Blood Pressure 121/65 Blood Pressure [Right Arm Sitting] Blood Pressure 122/54 [Right Arm Standing] Blood Pressure [Right Arm Supine] O2 Sat by Pulse 95 Oximetry Medical Decision Making - Medical Decision Making This is an 86 year old male who presents with nausea, vomiting, syncopal episode yesterday. Patient is well-appearing and in no apparent distress. The head is atraumatic without hematoma. Abdomen is soft and nontender. Orthostatics negative. CT of the brain and C-spine is negative for acute process. Chest x-ray is unremarkable. EKG shows sinus rhythm without ST or T- wave abnormality. Laboratory studies obtained. There is no leukocytosis. Troponin is within normal limits. COVID-19 and influenza are not detected. Nausea controlled. Results discussed with patient. At this time there are no diagnostic studies to explain patient's symptoms or syncopal episode. Patient will be discharged with Zofran. He will follow up with primary care provider. Return parameters discussed. Dr. Villafana is my attending. - Lab Data Result diagrams: 03/02/22 14:15 03/02/22 14:15 Lab Results 03/02/22 03/02/22 03/02/22 Range/Units 14:15 14:15 14:15 WBC 8.3 (3.8-10.6) k/uL RBC 4.70 (4.30-5.90) m/uL Hgb 14.2 (13.0-17.5) gm/dL Hct 42.9 (39.0-53.0) % MCV 91.4 (80.0-100.0) fL MCH 30.1 (25.0-35.0) pg MCHC 33.0 (31.0-37.0) g/dL RDW 12.5 (11.5-15.5) % Plt Count 178 (150-450) k/uL MPV 7.2 Neutrophils % 74 % Lymphocytes % 14 % Monocytes % 7 % Eosinophils % 2 % Basophils % 0 % Neutrophils # 6.2 (1.3-7.7) k/uL Lymphocytes # 1.2 (1.0-4.8) k/uL Monocytes # 0.6 (0-1.0) k/uL Eosinophils # 0.2 (0-0.7) k/uL Basophils # 0.0 (0-0.2) k/uL Sodium 136 L (137-145) mmol/L Potassium 4.6 (3.5-5.1) mmol/L Chloride 98 (98-107) mmol/L Carbon Dioxide 27 (22-30) mmol/L Anion Gap 11 mmol/L BUN 27 H (9-20) mg/dL Creatinine 1.11 (0.66-1.25) mg/dL Est GFR (CKD-EPI)AfAm 70 (>60 ml/min/1.73 sqM) Est GFR (CKD-EPI)NonAf 61 (>60 ml/min/1.73 sqM) Glucose 100 H (74-99) mg/dL Calcium 9.8 (8.4-10.2) mg/dL Magnesium 1.9 (1.6-2.3) mg/dL Total Bilirubin 0.5 (0.2-1.3) mg/dL AST 25 (17-59) U/L ALT 20 (4-49) U/L Alkaline Phosphatase 82 (38-126) U/L Troponin I (0.000-0.034) ng/mL Total Protein 6.4 (6.3-8.2) g/dL Albumin 4.0 (3.5-5.0) g/dL Lipase 219 (23-300) U/L Urine Color Yellow Urine Appearance Clear (Clear) Urine pH 6.5 (5.0-8.0) Ur Specific [place] 1.016 (1.001-1.035) Urine Protein Trace H (Negative) Urine Glucose (UA) Negative (Negative) Urine Ketones Negative (Negative) Urine Blood Trace H (Negative) Urine Nitrite Negative (Negative) Urine Bilirubin Negative (Negative) Urine Urobilinogen <2.0 (<2.0) mg/dL Ur Leukocyte Esterase Negative (Negative) Urine RBC 3 (0-5) /hpf Urine WBC 3 (0-5) /hpf Ur Squamous Epith Cells <1 (0-4) /hpf Hyaline Casts 3 H (0-2) /lpf Urine Mucus Rare H (None) /hpf Coronavirus (PCR) (Not Detectd) Influenza Type A RNA (Not Detectd) Influenza Type B (PCR) (Not Detectd) 03/02/22 03/02/22 03/02/22 Range/Units 14:15 14:15 14:15 WBC (3.8-10.6) k/uL RBC (4.30-5.90) m/uL Hgb (13.0-17.5) gm/dL Hct (39.0-53.0) % MCV (80.0-100.0) fL MCH (25.0-35.0) pg MCHC (31.0-37.0) g/dL RDW (11.5-15.5) % Plt Count (150-450) k/uL MPV Neutrophils % % Lymphocytes % % Monocytes % % Eosinophils % % Basophils % % Neutrophils # (1.3-7.7) k/uL Lymphocytes # (1.0-4.8) k/uL Monocytes # (0-1.0) k/uL Eosinophils # (0-0.7) k/uL Basophils # (0-0.2) k/uL Sodium (137-145) mmol/L Potassium (3.5-5.1) mmol/L Chloride (98-107) mmol/L Carbon Dioxide (22-30) mmol/L Anion Gap mmol/L BUN (9-20) mg/dL Creatinine (0.66-1.25) mg/dL Est GFR (CKD-EPI)AfAm (>60 ml/min/1.73 sqM) Est GFR (CKD-EPI)NonAf (>60 ml/min/1.73 sqM) Glucose (74-99) mg/dL Calcium (8.4-10.2) mg/dL Magnesium (1.6-2.3) mg/dL Total Bilirubin (0.2-1.3) mg/dL AST (17-59) U/L ALT (4-49) U/L Alkaline Phosphatase (38-126) U/L Troponin I <0.012 (0.000-0.034) ng/mL Total Protein (6.3-8.2) g/dL Albumin (3.5-5.0) g/dL Lipase (23-300) U/L Urine Color Urine Appearance (Clear) Urine pH (5.0-8.0) Ur Specific [place] (1.001-1.035) Urine Protein (Negative) Urine Glucose (UA) (Negative) Urine Ketones (Negative) Urine Blood (Negative) Urine Nitrite (Negative) Urine Bilirubin (Negative) Urine Urobilinogen (<2.0) mg/dL Ur Leukocyte Esterase (Negative) Urine RBC (0-5) /hpf Urine WBC (0-5) /hpf Ur Squamous Epith Cells (0-4) /hpf Hyaline Casts (0-2) /lpf Urine Mucus (None) /hpf Coronavirus (PCR) Not Detected (Not Detectd) Influenza Type A RNA Not Detected (Not Detectd) Influenza Type B (PCR) Not Detected (Not Detectd) Disposition Clinical Impression: Syncope, Nausea & vomiting Disposition: HOME SELF-CARE Condition: Good Instructions (If sedation given, give patient instructions): Acute Nausea and Vomiting (ED) Additional Instructions: Take medication as directed. Follow-up with primary care provider in one to 2 days. Return to the emergency department if you experience new, concerning, or worsening symptoms. Prescriptions: Ondansetron Odt [Zofran Odt] 4 mg PO Q8HR PRN #12 tab PRN Reason: Nausea Is patient prescribed a controlled substance at d/c from ED?: No Referrals: Jose Swenson DO [Primary Care Provider] - 1-2 days Time of Disposition: 16:06
== END 2022-03-02 16:15 | disposition home or self-care (01) ==
LOC: EC 12:30
DX: R55 Syncope and collapse (principal); R11.2 Nausea with vomiting, unspecified; I25.10 Atherosclerotic heart disease of native coronary artery without angina pectoris; E78.5 Hyperlipidemia, unspecified; I10 Essential (primary) hypertension; M19.90 Unspecified osteoarthritis, unspecified site; Z87.891 Personal history of nicotine dependence; Z20.822 Contact with and (suspected) exposure to COVID-19; Z79.82 Long term (current) use of aspirin; Z79.899 Other long term (current) drug therapy
CPT/HCPCS: 36415; 93005; 80053; 83690; 83735; 84484; 85025; 81001; 87502; 87635; 71046; 72125; 70450; 99284; 96374; 96361; J2405

== ENCOUNTER 2022-12-27 10:54 | Observation (INO) | payer MEDICARE ==
[2022-12-27] MEDS ORDERED: SODIUM CHLORIDE 0.9% 1,000 ML IV ONE (11:54)
[2022-12-27] MEDS ORDERED: DILTIAZEM DRIP BOLUS FROM BAG 1 MG SOLN IV ONE (11:54)
[2022-12-27] MEDS ORDERED: DILTIAZEM 125 MG in SODIUM CHLORIDE 0.9% 100 ML IV SCH (12:00)
[2022-12-27 12:43] LABS: Basophils % (A) 0 %; Eosinophils # (A) 0.2 k/uL (0-0.7); Eosinophils % (A) 3 %; HCT 42.5 % (39.0-53.0); HGB 14.4 gm/dL (13.0-17.5); Lymphocytes # (A) 1.2 k/uL (1.0-4.8); Lymphocytes % (A) 19 %; MCH 30.2 pg (25.0-35.0); MCHC 33.9 g/dL (31.0-37.0); MCV 89.1 fL (80.0-100.0); Mean Platelet Volume 7.7; Monocytes # (A) 0.4 k/uL (0-1.0); Monocytes % (A) 6 %; Neutrophils # (A) 4.6 k/uL (1.3-7.7); Neutrophils % (A) 70 %; Platelet Count 156 k/uL (150-450); RBC 4.77 m/uL (4.30-5.90); RDW 13.1 % (11.5-15.5); WBC 6.5 k/uL (3.8-10.6)
--- NOTE | 2022-12-27 12:47 | ED ---
Arrhythmia/Palpitations HPI - General Chief Complaint: Arrhythmia/Palpitations Stated Complaint: dizziness Time Seen by Provider: 12/27/22 11:20 Source: patient Mode of arrival: wheelchair Limitations: no limitations - History of Present Illness Initial Comments: 87-year-old male with past medical history of coronary artery disease status status post bypass surgery who presents to the emergency department reporting palpitations for the past month. States that he has associated exertional shortness of breath. Denies any chest pain. Went to his primary care office this morning for the complaint. They noted that he had an elevated heart rate and send him immediately to the hospital. He denies history of irregular heart rhythms. Has been taking his medications as directed. No other alleviating, precipitating or modifying factors - Related Data Home Medications Medication Instructions Recorded Confirmed Atorvastatin [Lipitor] 20 mg PO HS 01/13/16 12/27/22 Ramipril 10 mg PO DAILY 01/13/16 12/27/22 Aspirin EC [Ecotrin Low Dose] 81 mg PO DAILY 05/25/21 12/27/22 Albuterol Inhaler [Ventolin Hfa 1 - 2 puff INHALATION RT-Q6H PRN 12/27/22 12/27/22 Inhaler] Previous Rx's Medication Instructions Recorded Apixaban [Eliquis] 2.5 mg PO BID 30 Days #60 tab 12/29/22 Metoprolol Tartrate [Lopressor] 50 mg PO BID 30 Days #60 tab 12/29/22 Pramipexole [Mirapex] 0.5 mg PO HS 30 Days #30 tab 12/29/22 Allergies Allergy/AdvReac Type Severity Reaction Status Date / Time No Known Allergies Allergy Verified 12/27/22 14:55 Review of Systems ROS Statement: Those systems with pertinent positive or pertinent negative responses have been documented in the HPI. ROS Other: All systems not noted in ROS Statement are negative. Past Medical History Past Medical History: Coronary Artery Disease (CAD), Hyperlipidemia, Hypertensi on, Osteoarthritis (OA) History of Any Multi-Drug Resistant Organisms: None Reported Past Surgical History: Appendectomy, Cholecystectomy, Coronary Bypass/CABG Past Anesthesia/Blood Transfusion Reactions: No Reported Reaction Past Psychological History: No Psychological Hx Reported Smoking Status: Former smoker Past Alcohol Use History: Occasional Past Drug Use History: Marijuana - Past Family History Mother Family Medical History: Coronary Artery Disease (CAD) Father History Unknown: Yes General Exam Limitations: no limitations General appearance: alert, in no apparent distress Head exam: Present: atraumatic, normocephalic, normal inspection Eye exam: Present: normal appearance, PERRL, EOMI. Absent: scleral icterus, conjunctival injection, periorbital swelling ENT exam: Present: normal exam, mucous membranes moist Neck exam: Present: normal inspection. Absent: tenderness, meningismus, lymphadenopathy Respiratory exam: Present: normal lung sounds bilaterally. Absent: respiratory distress, wheezes, rales, rhonchi, stridor Cardiovascular Exam: Present: regular rate, tachycardia, normal heart sounds. Absent: systolic murmur, diastolic murmur, rubs, gallop, clicks GI/Abdominal exam: Present: soft, normal bowel sounds. Absent: distended, tenderness, guarding, rebound, rigid Extremities exam: Present: normal inspection, full ROM, normal capillary refill. Absent: tenderness, pedal edema, joint swelling, calf tenderness Back exam: Present: normal inspection Neurological exam: Present: alert, oriented X3, CN II-XII intact Psychiatric exam: Present: normal affect, normal mood Skin exam: Present: warm, dry, intact, normal color. Absent: rash Course Vital Signs 12/27/22 12/27/22 12/27/22 11:15 11:30 12:00 Temperature 98.6 F Pulse Rate 146 H 105 H 108 H Respiratory 20 42 H 21 Rate Blood Pressure 119/71 101/72 O2 Sat by Pulse 98 96 98 Oximetry 12/27/22 12/27/22 12/27/22 12:30 13:00 14:07 Temperature Pulse Rate 99 71 72 Respiratory 14 16 18 Rate Blood Pressure 116/88 119/68 112/85 O2 Sat by Pulse 98 97 96 Oximetry 12/27/22 15:31 Temperature Pulse Rate 61 Respiratory 18 Rate Blood Pressure 108/60 O2 Sat by Pulse 94 L Oximetry Medical Decision Making - Medical Decision Making Was pt. sent in by a medical professional or institution (, GEENA, COORDINATOR OF LIBRARY SERVICES, urgent care, hospital, or prison...) When possible be specific @ -PCP office Did you speak to anyone other than the patient for history (EMS, parent, family, police, friend...)? What history was obtained from this source @ -No Did you review nursing and triage notes (agree or disagree)? Why? @ -I reviewed and agree with nursing and triage notes Were old charts reviewed (outside hosp., previous admission, EMS record, old EKG, old radiological studies, urgent care reports/EKG's, prison records)? Report findings @ -No old charts were reviewed Differential Diagnosis (chest pain, altered mental status, abdominal pain women, abdominal pain men, vaginal bleeding, weakness, fever, dyspnea, syncope, headache, dizziness, GI bleed, back pain, seizure, CVA, palpatations, mental health, musculoskeletal)? @ -afib, vtach, aflutter, sinus tach, svt EKG interpreted by me (3pts min.). @ -Yes and demonstrates atrial flutter with a rate of 95. QRS 99. QTC is 355. No ST segment elevations or depressions X-rays interpreted by me (1pt min.). @ -yes, no acute process CT interpreted by me (1pt min.). @ -yes, no pe U/S interpreted by me (1pt. min.). @ -None done What testing was considered but not performed or refused? (CT, X-rays, U/S, labs)? Why? @ -None What meds were considered but not given or refused? Why? @ -None Did you discuss the management of the patient with other professionals (professionals i.e. , PA, COORDINATOR OF LIBRARY SERVICES, lab, RT, psych nurse, health care social worker, military pay technician, teacher, financial compliance officer, protective services case worker)? Give summary @ -dr. cox Was smoking cessation discussed for >3mins.? @ -No Was critical care preformed (if so, how long)? @ -yes, 35 minutes Were there social determinants of health that impacted care today? How? (Homelessness, low income, unemployed, alcoholism, drug addiction, transportation, low edu. Level, literacy, decrease access to med. care, prison, rehab)? @ -No Was there de-escalation of care discussed even if they declined (Discuss DNR or withdrawal of care, Hospice)? DNR status @ -No What co-morbidities impacted this encounter? (DM, HTN, Smoking, COPD, CAD, C ancer, CVA, ARF, Chemo, Hep., AIDS, mental health diagnosis, sleep apnea, morbid obesity)? @ -None Was patient admitted / discharged? Hospital course, mention meds given and route, prescriptions, significant lab abnormalities, going to OR and other pertinent info. @ -Upon arrival patient is placed into room 15. The history and physical exam was performed. He is up to continuous pulse ox and cardiac monitoring. 12-lead EKG demonstrates a flutter. He does have a rapid rate of 140. Because of this the patient is started on a Cardizem drip. Laboratory studies are conducted and reviewed. D-dimer elevated at 3.6. Patient sent for CT of his chest to rule out PE. No signs of PE. Results discussed the patient. Did recommend admission for cardiology consultation. He has no contraindications to anticoagulation and therefore patient was started on heparin. Spoke with Dr. Cox for admission Undiagnosed new problem with uncertain prognosis? @ -no Drug Therapy requiring intensive monitoring for toxicity (Heparin, Nitro, Insulin, Cardizem)? @ -cardizem, heparin Were any procedures done? @ -No Diagnosis/symptom? @ -acute palpitations, afib with rvr Acute, or Chronic, or Acute on Chronic? @ -acute Uncomplicated (without systemic symptoms) or Complicated (systemic symptoms)? @ -complicated Side effects of treatment? @ -No Exacerbation, Progression, or Severe Exacerbation? @ -No Poses a threat to life or bodily function? How? (Chest pain, [place], [place], pneumonia, PE, COPD, DKA, ARF, appy, cholecystitis, CVA, Diverticulitis, Homicidal, Suicidal, threat to staff... and all critical care pts) @ -yes, patient has rapid heart rate on arrival - Lab Data Result diagrams: 12/28/22 08:13 12/28/22 08:13 Lab Results 12/27/22 12/27/22 12/27/22 Range/Units 12:21 12:21 12:21 WBC 6.5 (3.8-10.6) k/uL RBC 4.77 (4.30-5.90) m/uL Hgb 14.4 (13.0-17.5) gm/dL Hct 42.5 (39.0-53.0) % MCV 89.1 (80.0-100.0) fL MCH 30.2 (25.0-35.0) pg MCHC 33.9 (31.0-37.0) g/dL RDW 13.1 (11.5-15.5) % Plt Count 156 (150-450) k/uL MPV 7.7 Neutrophils % 70 % Lymphocytes % 19 % Monocytes % 6 % Eosinophils % 3 % Basophils % 0 % Neutrophils # 4.6 (1.3-7.7) k/uL Lymphocytes # 1.2 (1.0-4.8) k/uL Monocytes # 0.4 (0-1.0) k/uL Eosinophils # 0.2 (0-0.7) k/uL Basophils # 0.0 (0-0.2) k/uL PT 9.9 (9.0-12.0) sec INR 0.9 (<1.2) APTT 21.2 L (22.0-30.0) sec D-Dimer 3.61 H (<0.60) mg/L FEU Sodium 136 L (137-145) mmol/L Potassium 5.0 (3.5-5.1) mmol/L Chloride 103 (98-107) mmol/L Carbon Dioxide 27 (22-30) mmol/L Anion Gap 6 mmol/L BUN 23 H (9-20) mg/dL Creatinine 0.96 (0.66-1.25) mg/dL Est GFR (CKD-EPI)AfAm 84 (>60 ml/min/1.73 sqM) Est GFR (CKD-EPI)NonAf 72 (>60 ml/min/1.73 sqM) Glucose 116 H (74-99) mg/dL Calcium 9.1 (8.4-10.2) mg/dL Magnesium 2.1 (1.6-2.3) mg/dL Total Bilirubin 0.5 (0.2-1.3) mg/dL AST 26 (17-59) U/L ALT 24 (4-49) U/L Alkaline Phosphatase 110 (38-126) U/L Troponin I (0.000-0.034) ng/mL Total Protein 7.0 (6.3-8.2) g/dL Albumin 4.0 (3.5-5.0) g/dL TSH 1.900 (0.465-4.680) mIU/L 12/27/22 12/27/22 12/27/22 Range/Units 12:21 15:14 18:18 WBC (3.8-10.6) k/uL RBC (4.30-5.90) m/uL Hgb (13.0-17.5) gm/dL Hct (39.0-53.0) % MCV (80.0-100.0) fL MCH (25.0-35.0) pg MCHC (31.0-37.0) g/dL RDW (11.5-15.5) % Plt Count (150-450) k/uL MPV Neutrophils % % Lymphocytes % % Monocytes % % Eosinophils % % Basophils % % Neutrophils # (1.3-7.7) k/uL Lymphocytes # (1.0-4.8) k/uL Monocytes # (0-1.0) k/uL Eosinophils # (0-0.7) k/uL Basophils # (0-0.2) k/uL PT (9.0-12.0) sec INR (<1.2) APTT (22.0-30.0) sec D-Dimer (<0.60) mg/L FEU Sodium (137-145) mmol/L Potassium (3.5-5.1) mmol/L Chloride (98-107) mmol/L Carbon Dioxide (22-30) mmol/L Anion Gap mmol/L BUN (9-20) mg/dL Creatinine (0.66-1.25) mg/dL Est GFR (CKD-EPI)AfAm (>60 ml/min/1.73 sqM) Est GFR (CKD-EPI)NonAf (>60 ml/min/1.73 sqM) Glucose (74-99) mg/dL Calcium (8.4-10.2) mg/dL Magnesium (1.6-2.3) mg/dL Total Bilirubin (0.2-1.3) mg/dL AST (17-59) U/L ALT (4-49) U/L Alkaline Phosphatase (38-126) U/L Troponin I <0.012 <0.012 <0.012 (0.000-0.034) ng/mL Total Protein (6.3-8.2) g/dL Albumin (3.5-5.0) g/dL TSH (0.465-4.680) mIU/L 12/27/22 12/28/22 12/28/22 Range/Units 20:19 08:13 08:13 WBC 4.8 (3.8-10.6) k/uL RBC 4.63 (4.30-5.90) m/uL Hgb 13.9 (13.0-17.5) gm/dL Hct 43.2 (39.0-53.0) % MCV 93.4 (80.0-100.0) fL MCH 30.1 (25.0-35.0) pg MCHC 32.2 (31.0-37.0) g/dL RDW 13.1 (11.5-15.5) % Plt Count 135 L (150-450) k/uL MPV 7.7 Neutrophils % 56 % Lymphocytes % 33 % Monocytes % 6 % Eosinophils % 4 % Basophils % 0 % Neutrophils # 2.7 (1.3-7.7) k/uL Lymphocytes # 1.6 (1.0-4.8) k/uL Monocytes # 0.3 (0-1.0) k/uL Eosinophils # 0.2 (0-0.7) k/uL Basophils # 0.0 (0-0.2) k/uL PT (9.0-12.0) sec INR (<1.2) APTT 44.7 H (22.0-30.0) sec D-Dimer (<0.60) mg/L FEU Sodium 138 (137-145) mmol/L Potassium 4.6 (3.5-5.1) mmol/L Chloride 104 (98-107) mmol/L Carbon Dioxide 27 (22-30) mmol/L Anion Gap 7 mmol/L BUN 20 (9-20) mg/dL Creatinine 0.83 (0.66-1.25) mg/dL Est GFR (CKD-EPI)AfAm >90 (>60 ml/min/1.73 sqM) Est GFR (CKD-EPI)NonAf 80 (>60 ml/min/1.73 sqM) Glucose 115 H (74-99) mg/dL Calcium 8.9 (8.4-10.2) mg/dL Magnesium (1.6-2.3) mg/dL Total Bilirubin (0.2-1.3) mg/dL AST (17-59) U/L ALT (4-49) U/L Alkaline Phosphatase (38-126) U/L Troponin I (0.000-0.034) ng/mL Total Protein (6.3-8.2) g/dL Albumin (3.5-5.0) g/dL TSH (0.465-4.680) mIU/L 12/28/22 12/28/22 Range/Units 08:13 08:13 WBC (3.8-10.6) k/uL RBC (4.30-5.90) m/uL Hgb (13.0-17.5) gm/dL Hct (39.0-53.0) % MCV (80.0-100.0) fL MCH (25.0-35.0) pg MCHC (31.0-37.0) g/dL RDW (11.5-15.5) % Plt Count (150-450) k/uL MPV Neutrophils % % Lymphocytes % % Monocytes % % Eosinophils % % Basophils % % Neutrophils # (1.3-7.7) k/uL Lymphocytes # (1.0-4.8) k/uL Monocytes # (0-1.0) k/uL Eosinophils # (0-0.7) k/uL Basophils # (0-0.2) k/uL PT 10.2 (9.0-12.0) sec INR 1.0 (<1.2) APTT 37.2 H (22.0-30.0) sec D-Dimer (<0.60) mg/L FEU Sodium (137-145) mmol/L Potassium (3.5-5.1) mmol/L Chloride (98-107) mmol/L Carbon Dioxide (22-30) mmol/L Anion Gap mmol/L BUN (9-20) mg/dL Creatinine (0.66-1.25) mg/dL Est GFR (CKD-EPI)AfAm (>60 ml/min/1.73 sqM) Est GFR (CKD-EPI)NonAf (>60 ml/min/1.73 sqM) Glucose (74-99) mg/dL Calcium (8.4-10.2) mg/dL Magnesium (1.6-2.3) mg/dL Total Bilirubin (0.2-1.3) mg/dL AST (17-59) U/L ALT (4-49) U/L Alkaline Phosphatase (38-126) U/L Troponin I (0.000-0.034) ng/mL Total Protein (6.3-8.2) g/dL Albumin (3.5-5.0) g/dL TSH (0.465-4.680) mIU/L Disposition Clinical Impression: New onset a-fib, Palpitations Disposition: ADMITTED IP TO THIS [facility] Condition: Stable Is patient prescribed a controlled substance at d/c from ED?: No Time of Disposition: 14:20 Decision to Admit Reason: Admit from EC Decision Date: 12/27/22 Decision Time: 14:20
[2022-12-27 12:55] LABS: ALT 24 U/L (4-49); AST 26 U/L (17-59); African American GFR (CKD) 84 (>60 ml/min/1.73 sqM); Alkaline Phosphatase 110 U/L (38-126); Anion Gap 6 mmol/L; Blood Urea Nitrogen 23 mg/dL (9-20); Calcium 9.1 mg/dL (8.4-10.2); Carbon Dioxide 27 mmol/L (22-30); Chloride 103 mmol/L (98-107); Glucose 116 mg/dL (74-99); Magnesium 2.1 mg/dL (1.6-2.3); Non-African American GFR(CKD) 72 (>60 ml/min/1.73 sqM); Sodium 136 mmol/L (137-145); Total Bilirubin 0.5 mg/dL (0.2-1.3)
--- NOTE | 2022-12-27 13:02 | XR ---
EXAMINATION TYPE: XR chest 2V DATE OF EXAM: 12/27/2022 12:42 PM COMPARISON: Chest radiographs from 05/25/2021 TECHNIQUE: XR chest 2V Frontal and lateral views of the chest. CLINICAL INDICATION:Male, 87 years old with history of dysrhythmia; FINDINGS: Lungs/Pleura: There is no evidence of pleural effusion, focal consolidation, or pneumothorax. Pulmonary vascularity: Unremarkable. Heart/mediastinum: Cardiomediastinal silhouette is unremarkable. Atherosclerotic calcifications are seen in the aorta. Musculoskeletal: No acute osseous pathology. Midline sternotomy wires are noted. IMPRESSION: No acute cardiopulmonary disease/process.
[2022-12-27 13:20] LABS: INR 0.9 (<1.2); Prothrombin Time 9.9 sec (9.0-12.0)
[2022-12-27 13:27] LABS: Partial Thromboplastin Time 21.2 sec (22.0-30.0)
[2022-12-27] MEDS ORDERED: HEPARIN SODIUM 1,000 UN/ML (10ML VL) IV ONE (14:11)
[2022-12-27] MEDS ORDERED: HEPARIN SODIUM 1,000 UN/ML (10ML VL) IV PRN (14:11)
[2022-12-27] MEDS ORDERED: HEPARIN SOD,PORK IN 0.45% NACL 25,000 UNIT in 0.45% NACL 1 250ML.BAG IV SCH (14:15)
[2022-12-27] MEDS ORDERED: NALOXONE 0.4 MG/ML 1 ML VIAL IV PRN (14:20)
--- NOTE | 2022-12-27 14:31 | CT ---
CT CHEST FOR PULMONARY EMBOLISM. EXAMINATION TYPE: CT chest angio for PE DATE OF EXAM: 12/27/2022 INDICATION: R/O pe CT DLP: 347.8 mGycm, Automated exposure control for dose reduction was used. CONTRAST: Patient injected with 80 mL of Isovue 370. COMPARISON: None TECHNIQUE: CT of the chest is performed on a spiral scan at 2 mm thick sections. Study is performed with intravenous contrast timed for evaluation for pulmonary embolism. This will limit additional po rtions of the evaluation. 3-D MIP images reconstructed by the technologist are reviewed on the compu ter in the coronal and sagittal planes. FINDINGS: No persistent filling defects are evident to suggest an acute pulmonary embolism. There is reflux int o the inferior vena cava. No mediastinal or hilar adenopathy enlarged by CT criteria is evident. The ascending aorta diameter at the level of the main pulmonary artery is 3.5 cm. The main pulmonary artery diameter at the bifur cation is 2.6 cm. Dense coronary artery calcifications present. There appears to be a fat herniation into the posterior right lung base. Emphysematous changes to the lung coronel. Limited CT section through the upper abdomen are unremarkable. IMPRESSIONS: 1. No acute pulmonary embolism. 2. Posterior right lung base fat herniation from the abdomen. 3. Mild emphysematous changes
--- NOTE | 2022-12-27 16:45 | P.HPIM ---
History of Present Illness H&P Date: 12/27/22 History of Presenting Illness: Patient is a very pleasant 87-year-old male with a past medical history CAD status post CABG, hypertension, hyperlipidemia, restless leg syndrome and COPD. Patient presented to the emergency department with a chief complaint of palpitations. Patient reports this has been ongoing for months. Patient reports intermittent palpitations and states that he scheduled an appointment with his primary care doctor and when he arrived to the MD clinic he was having significant palpitations and unable to catch his breath. Patient was found to be in A. fib RVR and immediately sent to the hospital. Patient denies history of previous diagnosis of atrial fibrillation. Currently he reports palpitations come and go and does admit to having chest tightness, dizziness/lightheadedness and shortness of breath at rest and with exertion. Patient denies having any changes in vision, hearing, dysphasia, difficulties with her changes in his speech, or experiencing any numbness/tingling/weakness/swelling in his extremities. Patient underwent full evaluation in the emergency department. Vital signs upon arrival revealed blood pressure 119/71, heart rate 146, respiratory rate 20, temp 98.6F, and SpO2 of 98% on room air. EKG completed confirming atrial fibrillation at a ventricular rate of 95 bpm, however patient was found to have RVR with rates exceeding up to 140s to 150s. Chest x-ray was completed, lungs appear clear and radiology report stating negative for acute cardiopulmonary process. Labs completed and reviewed. CBC unremarkable. BMP revealing slightly elevated BUN 23 and glucose of 116. Magnesium normal findings at 2.1. Liver profile unremarkable. Troponin negative at less than 0.012. TSH normal findings at 1.9. D-dimer was elevated at 3.61. Patient was sent for CTA chest to rule out PE, radiology report reviewed stating negative for acute pulmonary embolism showing posterior right lung base fat herniation from the abdomen. Patient was started on heparin infusion, given Cardizem bolus and started on Cardizem infusion in the emergency department. Discussed patient presentation, physical exam findings, laboratory analysis, and imaging results in detail with ED physician. Patient being admitted under our services to cardiac stepdown unit with telemetry. Consultation placed to arm rest builder. Review of systems: Pertinent positives and negatives as discussed in HPI, a complete review of systems was performed and all other systems are negative. Physical exam: Vital signs reviewed and stable. General: Nontoxic, no distress and appears stated age. Derm: Skin warm and dry, normal coloration for ethnicity. Head: Atraumatic, normocephalic and symmetric. Eyes: EOMs intact, no lid lag, and anicteric sclera Mouth: no lip lesions, mucus membranes moist Cardiovascular: Irregularly irregular, systolic murmur, positive posterior tibial pulses bilaterally, and cap refill < 2 seconds. Lungs: Respirations even, regular, and unlabored on room air. Lungs CTA bilaterally, no rhonchi, no rales, no wheezing, and no accessory muscle usage. Abdominal: soft, nontender to palpation, no guarding, no appreciable organomegaly Ext: ROM intact. No gross muscle atrophy, no edema, no contractures Neuro: Speech clear, face symmetrical and CN II-XII grossly intact with no noted focal neuro deficits Psych: Alert and oriented to person, place, time, and situation. Appropriate and pleasant affect. Assessment and Plan of Care: Atrial fibrillation with RVR History of CAD status post CABG Hypertension Hyperlipidemia - Vital signs upon arrival revealed blood pressure 119/71, heart rate 146, respiratory rate 20, temp 98.6F, and SpO2 of 98% on room air. -EKG completed confirming atrial fibrillation at a ventricular rate of 95 bpm, however patient was found to have RVR with rates exceeding up to 140s to 150s. -Chest x-ray was completed, lungs appear clear and radiology report stating negative for acute cardiopulmonary process. -Labs completed and reviewed. CBC unremarkable. BMP revealing slightly elevated BUN 23 and glucose of 116. Magnesium normal findings at 2.1. Liver profile unremarkable. Troponin negative at less than 0.012. TSH normal findings at 1.9. D-dimer was elevated at 3.61. -Patient was sent for CTA chest to rule out PE, radiology report reviewed stating negative for acute pulmonary embolism showing posterior right lung base fat herniation from the abdomen. -Patient was started on heparin infusion, given Cardizem bolus and started on Cardizem infusion in the emergency department. -Discussed patient presentation, physical exam findings, laboratory analysis, and imaging results in detail with ED physician. -Patient to be admitted under our services to cardiac stepdown unit with telemetry. -Consultation placed to arm rest builder. -Patient currently maintaining controlled ventricular rate in 70s, remains in atrial fibrillation. -Increased home metoprolol from 25 mg daily to 50 mg twice a day and ordered for Cardizem infusion to be stopped 30 minutes after administration of metoprolol. -Order placed for echocardiogram Restless legs, patient reports constant burning in legs times years resulting in difficulty lying still in hospital bed -Patient started on Mirapex 0.5 mg nightly. Hernia -Recommend outpatient follow-up with cracker sprayer for evaluation and possible repair The patient is admitted with an anticipated greater than 2 midnight stay for evaluation of atrial fibrillation with RVR, newly diagnosed CODE STATUS: Full code DVT prophylaxis: Heparin Discussed with: Patient, RN, and ED physician Anticipated discharge date: Clinical course to determine Anticipated discharge place: Home Patient was seen independently by Nurse Practitioner. This document was prepared using [employer] dictation software. Please allow for errors in wastewater design engineer while rare they do occur. Dale Riley NP rendered care for this patient independently, reviewed the findings and plan as documented in the note above. I did not physically speak with or examine the patient on this date. Past Medical History Past Medical History: Coronary Artery Disease (CAD), Hyperlipidemia, Hypertension, Osteoarthritis (OA) History of Any Multi-Drug Resistant Organisms: None Reported Past Surgical History: Appendectomy, Cholecystectomy, Coronary Bypass/CABG Past Anesthesia/Blood Transfusion Reactions: No Reported Reaction Past Psychological History: No Psychological Hx Reported Smoking Status: Former smoker Past Alcohol Use History: Occasional Past Drug Use History: Marijuana - Past Family History Mother Family Medical History: Coronary Artery Disease (CAD) Father History Unknown: Yes Medications and Allergies Home Medications Medication Instructions Recorded Confirmed Type Atorvastatin [Lipitor] 20 mg PO HS 01/13/16 12/27/22 History Ramipril 10 mg PO DAILY 01/13/16 12/27/22 History Aspirin EC [Ecotrin Low Dose] 81 mg PO DAILY 05/25/21 12/27/22 History Albuterol Inhaler [Ventolin Hfa 1 - 2 puff INHALATION RT-Q6H PRN 12/27/22 12/27/22 History Inhaler] Metoprolol Tartrate [Lopressor] 25 mg PO DAILY 12/27/22 12/27/22 History Allergies Allergy/AdvReac Type Severity Reaction Status Date / Time No Known Allergies Allergy Verified 12/27/22 14:55 Physical Exam Vitals: Vital Signs Temp Pulse Resp BP Pulse Ox 12/27/22 15:31 61 18 108/60 94 L 12/27/22 14:07 72 18 112/85 96 12/27/22 13:00 71 16 119/68 97 12/27/22 12:30 99 14 116/88 98 12/27/22 12:00 108 H 21 101/72 98 12/27/22 11:30 105 H 42 H 96 12/27/22 11:15 98.6 F 146 H 20 119/71 98 Intake and Output 12/27/22 12/27/22 12/27/22 06:59 14:59 22:59 Intake Total 11.75 Balance 11.75 Intake: Intake, IV Titration 11.75 Amount Diltiazem 125 mg In 11.75 Sodium Chloride 0.9% 100 ml @ 5 MG/HR 5 mls/hr IV .Q24H [facility] Rx#:[id number] Other: Weight 77.111 kg Results CBC & Chem 7: 12/28/22 08:13 12/28/22 08:13 Labs: Abnormal Lab Results - Last 24 Hours (Table) 12/27/22 12/27/22 Range/Units 12:21 12:21 APTT 21.2 L (22.0-30.0) sec D-Dimer 3.61 H (<0.60) mg/L FEU Sodium 136 L (137-145) mmol/L BUN 23 H (9-20) mg/dL Glucose 116 H (74-99) mg/dL
[2022-12-27] MEDS ORDERED: ALBUTEROL NEBULIZED 2.5 MG/3 ML INHALATION PRN (16:46)
[2022-12-27] MEDS ORDERED: MELATONIN 3 MG TABLET PO PRN (16:54)
[2022-12-27] MEDS ORDERED: ACETAMINOPHEN TAB 325 MG TAB PO PRN (16:54)
[2022-12-27] MEDS ORDERED: HYDROcodone/APAP 5-325MG 1 EACH TAB PO PRN (16:54)
[2022-12-27] MEDS ORDERED: ONDANSETRON 4 MG/2 ML VIAL IVP PRN (16:54)
[2022-12-27] MEDS: METOPROLOL TARTRATE 50 MG TAB PO SCH ×2 (17:34→21:21)
[2022-12-27] MEDS: PRAMIPEXOLE 0.5 MG TAB PO SCH (21:21)
[2022-12-27] MEDS: ATORVASTATIN 20 MG TAB PO SCH (21:21)
--- NOTE | 2022-12-28 07:45 | P.CRDCN ---
History of Present Illness Consult date: 12/28/22 Chief complaint: Palpitation History of present illness: The patient is a pleasant 87-year-old gentleman with a past medical history significant for CAD with prior CABG over 20 years with unknown details and also history of cardiomyopathy with an ejection fraction of 45% as well as hypertension and dyslipidemia. The patient presented to the hospital complaining of palpitations/heart racing for the last few days associated with dizziness and lightheadedness and no presyncope or syncope and no symptoms of chest pain or chest discomfort or shortness of breath. He decided to come to the hospital for further evaluation. He was found to be in atrial fibrillation with overall controlled heart rate. Subsequently the patient was admitted and started on IV heparin. He is asymptomatic at this point. He continues to be on heparin IV. He underwent further investigation including d-dimer which came in to be abnormal but subsequently CTA of the chest did not show any evidence of pulmonary embolism. Also he underwent an EKG which showed and confirmed atrial fibrillation with diffuse nonspecific ST and T wave abnormalities. Beside that the risks of the blood work including troponin came in to be unremarkable. The examination is remarkable for stable vital signs with irregular rhythm and controlled heart rate and clear breathing sounds bilaterally and no lower extremity edema noted Assessment Atrial fibrillation with controlled heart rate. This is a new diagnosis the patient Coronary artery disease with prior revascularization with CABG with unknown details History of cardiomyopathy Multiple comorbid conditions Plan Continue the current medical regimen DC heparin and start oral anticoagulation Obtain an echocardiogram with Doppler Watch for arrhythmia mainly in terms of sinus pauses of sinus arrest Further recommendation to follow Past Medical History Past Medical History: Coronary Artery Disease (CAD), Hyperlipidemia, Hypertension, Osteoarthritis (OA) History of Any Multi-Drug Resistant Organisms: None Reported Past Surgical History: Appendectomy, Cholecystectomy, Coronary Bypass/CABG Past Anesthesia/Blood Transfusion Reactions: No Reported Reaction Past Psychological History: No Psychological Hx Reported Smoking Status: Former smoker Past Alcohol Use History: Occasional Past Drug Use History: Marijuana - Past Family History Mother Family Medical History: Coronary Artery Disease (CAD) Father History Unknown: Yes Medications and Allergies Home Medications Medication Instructions Recorded Confirmed Type Atorvastatin [Lipitor] 20 mg PO HS 01/13/16 12/27/22 History Ramipril 10 mg PO DAILY 01/13/16 12/27/22 History Aspirin EC [Ecotrin Low Dose] 81 mg PO DAILY 05/25/21 12/27/22 History Albuterol Inhaler [Ventolin Hfa 1 - 2 puff INHALATION RT-Q6H PRN 12/27/22 12/27/22 History Inhaler] Metoprolol Tartrate [Lopressor] 25 mg PO DAILY 12/27/22 12/27/22 History Allergies Allergy/AdvReac Type Severity Reaction Status Date / Time No Known Allergies Allergy Verified 12/27/22 14:55 Physical Exam Vitals: Vital Signs Temp Pulse Pulse Resp BP BP Pulse Ox 12/28/22 04:00 98.2 F 69 19 108/77 95 12/28/22 00:00 98.0 F 61 19 132/77 98 12/27/22 20:00 97.9 F 56 L 18 120/65 97 12/27/22 17:22 98 F 68 16 145/80 98 12/27/22 15:31 61 18 108/60 94 L 12/27/22 14:07 72 18 112/85 96 12/27/22 13:00 71 16 119/68 97 12/27/22 12:30 99 14 116/88 98 12/27/22 12:00 108 H 21 101/72 98 12/27/22 11:30 105 H 42 H 96 12/27/22 11:15 98.6 F 146 H 20 119/71 98 Intake and Output 12/27/22 12/28/22 12/28/22 22:59 06:59 14:59 Intake Total 240 Balance 240 Intake: Oral 240 Other: Voiding Method Toilet Toilet # Voids 1 2 Weight 77.111 kg Results 12/27/22 12:21 12/27/22 12:21 Cardiac Enzymes 12/27/22 12/27/22 12/27/22 Range/Units 12:21 12:21 15:14 AST 26 (17-59) U/L Troponin I <0.012 <0.012 (0.000-0.034) ng/mL 12/27/22 Range/Units 18:18 AST (17-59) U/L Troponin I <0.012 (0.000-0.034) ng/mL Coagulation 12/27/22 12/27/22 Range/Units 12:21 20:19 PT 9.9 (9.0-12.0) sec APTT 21.2 L 44.7 H (22.0-30.0) sec CBC 12/27/22 Range/Units 12:21 WBC 6.5 (3.8-10.6) k/uL RBC 4.77 (4.30-5.90) m/uL Hgb 14.4 (13.0-17.5) gm/dL Hct 42.5 (39.0-53.0) % Plt Count 156 (150-450) k/uL Comprehensive Metabolic Panel 12/27/22 Range/Units 12:21 Sodium 136 L (137-145) mmol/L Potassium 5.0 (3.5-5.1) mmol/L Chloride 103 (98-107) mmol/L Carbon Dioxide 27 (22-30) mmol/L BUN 23 H (9-20) mg/dL Creatinine 0.96 (0.66-1.25) mg/dL Glucose 116 H (74-99) mg/dL Calcium 9.1 (8.4-10.2) mg/dL AST 26 (17-59) U/L ALT 24 (4-49) U/L Alkaline Phosphatase 110 (38-126) U/L Total Protein 7.0 (6.3-8.2) g/dL Albumin 4.0 (3.5-5.0) g/dL Current Medications Generic Name Dose Route Start Last Admin Trade Name Favianq PRN Reason Stop Dose Admin Acetaminophen 650 mg 12/27/22 16:54 Acetaminophen Tab 325 Mg Tab PO Q6HR PRN Mild Pain or Fever > 100.5 Hydrocodone Bitart/Acetaminophen 1 each 12/27/22 16:54 Hydrocodone/Apap 5-325mg 1 Each Tab PO Q4HR PRN Moderate to Severe Pain (4-10) Albuterol Sulfate 2.5 mg 12/27/22 16:46 Albuterol Nebulized 2.5 Mg/3 Ml INHALATION RT-Q6H PRN Shortness Of Breath Aspirin 81 mg 12/28/22 09:00 Aspirin 81 Mg PO DAILY KESHAV Atorvastatin Calcium 20 mg 12/27/22 21:00 12/27/22 21:21 Atorvastatin 20 Mg Tab PO 20 mg HS KESHAV Administration Heparin Sodium (Porcine) 0 unit 12/27/22 14:11 Heparin Sodium 1,000 Un/Ml (10ml Vl) IV PER PROTOCOL PRN Low PTT Protocol Heparin Sodium/Sodium Chloride 250 mls @ 9.253 mls/hr 12/27/22 14:15 12/27/22 15:28 25,000 unit/ Sodium Chloride IV 12 units/kg/hr .Q24H [facility] 9.253 mls/hr Administration Protocol 12 UNITS/KG/HR Lisinopril 40 mg 12/28/22 09:00 Lisinopril 20 Mg Tab PO DAILY KESHAV Melatonin 3 mg 12/27/22 16:54 Melatonin 3 Mg Tablet PO HS PRN Insomnia Metoprolol Tartrate 50 mg 12/27/22 17:00 12/27/22 21:21 Metoprolol Tartrate 50 Mg Tab PO 50 mg BID [facility] Administration Naloxone HCl 0.2 mg 12/27/22 14:20 Naloxone 0.4 Mg/Ml 1 Ml Vial IV Q2M PRN Opioid Reversal Ondansetron HCl 4 mg 12/27/22 16:54 Ondansetron 4 Mg/2 Ml Vial IVP Q8HR PRN Nausea And Vomiting Pramipexole Dihydrochloride 0.5 mg 12/27/22 21:00 12/27/22 21:21 Pramipexole 0.5 Mg Tab PO 0.5 mg HS [facility] Administration Intake and Output 12/27/22 12/28/22 12/28/22 22:59 06:59 14:59 Intake Total 240 Balance 240 Intake: Oral 240 Other: Voiding Method Toilet Toilet # Voids 1 2 Weight 77.111 kg 12/27/22 12:21 12/27/22 12:21
[2022-12-28 08:44] LABS: Basophils % (A) 0 %; Eosinophils # (A) 0.2 k/uL (0-0.7); Eosinophils % (A) 4 %; HCT 43.2 % (39.0-53.0); HGB 13.9 gm/dL (13.0-17.5); Lymphocytes # (A) 1.6 k/uL (1.0-4.8); Lymphocytes % (A) 33 %; MCH 30.1 pg (25.0-35.0); MCHC 32.2 g/dL (31.0-37.0); MCV 93.4 fL (80.0-100.0); Mean Platelet Volume 7.7; Monocytes # (A) 0.3 k/uL (0-1.0); Monocytes % (A) 6 %; Neutrophils # (A) 2.7 k/uL (1.3-7.7); Neutrophils % (A) 56 %; Platelet Count 135 k/uL (150-450); RBC 4.63 m/uL (4.30-5.90); RDW 13.1 % (11.5-15.5); WBC 4.8 k/uL (3.8-10.6)
[2022-12-28 08:52] LABS: African American GFR (CKD) >90 (>60 ml/min/1.73 sqM); Anion Gap 7 mmol/L; Blood Urea Nitrogen 20 mg/dL (9-20); Calcium 8.9 mg/dL (8.4-10.2); Carbon Dioxide 27 mmol/L (22-30); Chloride 104 mmol/L (98-107); Glucose 115 mg/dL (74-99); Non-African American GFR(CKD) 80 (>60 ml/min/1.73 sqM); Potassium 4.6 mmol/L (3.5-5.1); Sodium 138 mmol/L (137-145)
[2022-12-28 09:00] LABS: Prothrombin Time 10.2 sec (9.0-12.0)
[2022-12-28] MEDS: lisinopriL 20 MG TAB PO SCH (09:47)
[2022-12-28] MEDS: METOPROLOL TARTRATE 50 MG TAB PO SCH ×2 (09:47→20:00)
[2022-12-28] MEDS: ASPIRIN 81 MG PO SCH (09:47)
[2022-12-28] MEDS: APIXABAN 2.5 MG TABLET PO SCH ×2 (09:48→20:00)
--- NOTE | 2022-12-28 10:52 | CA ---
Transthoracic Echo Report Name: Sagar Dos Santos Age: 87 Gender: M : 1935 Exam Date: 12/28/2022 08:31 Exam Location: [facility] Ht (in): 60 Wt (lb): 170 Ordering Physician: Dale Riley Attending/Referring Phys: Upkeep Mechanic Kristy Mendoza [facility] Procedure CPT: Indications: NEW ONSET A-FIB W/ RVR Cardiac Hx: Technical Quality: Technically difficult study Contrast 1: Total Dose (mL): Contrast 2: Total Dose (mL): MEASUREMENTS (Male / Female) Normal Values 2D ECHO LV Diastolic Diameter PLAX 5.0 cm 4.2 - 5.9 / 3.9 - 5.3 cm LV Systolic Diameter PLAX 3.7 cm IVS Diastolic Thickness 0.8 cm 0.6 - 1.0 / 0.6 - 0.9 cm LVPW Diastolic Thickness 0.7 cm 0.6 - 1.0 / 0.6 - 0.9 cm LV Relative Wall Thickness 0.3 LVOT Diameter 2.0 cm LV Diastolic Volume MOD BP 96.8 cm??? 67 - 155 / 56 - 104 cm??? LV Systolic Volume MOD BP 64.5 cm??? 22 - 58 / 19 - 49 cm??? LV Ejection Fraction MOD BP 33.4 % >= 55 % LV Cardiac Index MOD BP 1229.4 cm???/min???m??? LV Diastolic Volume MOD 4C 83.0 cm??? LV Systolic Volume MOD 4C 47.9 cm??? LV Ejection Fraction MOD 4C 42.3 % LV Cardiac Index MOD 4C 1334.5 cm???/min???m??? LV Diastolic Length 4C 6.8 cm LV Systolic Length 4C 6.3 cm LV Diastolic Volume MOD 2C 108.5 cm??? LV Systolic Volume MOD 2C 82.0 cm??? LV Ejection Fraction MOD 2C 24.4 % LV Cardiac Index MOD 2C 1008.0 cm???/min???m??? LV Diastolic Length 2C 7.2 cm LV Systolic Length 2C 6.7 cm M-MODE Aortic Root Diameter MM 3.4 cm LA Systolic Diameter MM 4.7 cm LA Ao Ratio MM 1.4 AV Cusp Separation MM 2.6 cm DOPPLER AV Peak Velocity 80.1 cm/s AV Peak Gradient 2.6 mmHg AV Mean Velocity 60.4 cm/s AV Mean Gradient 1.6 mmHg AV Velocity Time Integral 18.2 cm LVOT Peak Velocity 79.0 cm/s LVOT Peak Gradient 2.5 mmHg LVOT Velocity Time Integral 15.3 cm LVOT Stroke Volume 50.0 cm??? LVOT Stroke Volume Index 28.7 ml/m??? LVOT Cardiac Index 1900.8 cm???/min???m??? AV Area Cont Eq vti 2.8 cm??? AV Area Cont Eq pk 3.2 cm??? MR Peak Velocity 472.5 cm/s MR Peak Gradient 89.3 mmHg Mitral E Point Velocity 80.3 cm/s MV Deceleration Time 103.5 ms LV E' Lateral Velocity 14.5 cm/s Mitral E to LV E' Lateral Ratio 5.6 LV E' Septal Velocity 13.1 cm/s Mitral E to LV E' Septal Ratio 6.2 TR Peak Velocity 249.3 cm/s TR Peak Gradient 24.9 mmHg Right Atrial Pressure 3.0 mmHg Pulmonary Artery Systolic Pressu 27.9 mmHg Right Ventricular Systolic Press 29.9 mmHg FINDINGS Left Ventricle Left ventricular wall thickness normal. Mild left ventricular dilatation. Hypokinetic inferior wall. Left ventricular ejection fraction is estimated at 30-35%. Mildly increased left ventricular systolic volume. Moderately decreased left ventricular ejection fraction. Right Ventricle Right ventricle not well visualized. Right Atrium Right atrium not well visualized. Left Atrium Severe left atrial dilatation. Mitral Valve Structurally normal mitral valve. Mitral valve thickened. Moderate mitral regurgitation. Aortic Valve Aortic valve not well visualized. No aortic valve stenosis. Trace aortic regurgitation. Tricuspid Valve Structurally normal tricuspid valve. Mild tricuspid regurgitation. Pulmonic Valve Pulmonic valve not well visualized. Pericardium No pericardial effusion. Aorta Normal size aortic root. CONCLUSIONS Impaired LV function with EF around 35% Moderate mitral regurgitation Mild aortic insufficiency Previewed by: Dr. Bernabe Monzon MD (Electronically Signed) Final Date: 28 December 2022 10:52
--- NOTE | 2022-12-28 15:41 | P.PN ---
Subjective Progress Note Date: 12/28/22 Hospital course: Patient is a very pleasant 87-year-old male with a past medical history CAD status post CABG, hypertension, hyperlipidemia, restless leg syndrome and COPD. he presented to the emergency department on 12/27/22 with a chief complaint of palpitations. Patient reports this has been ongoing for months. Patient reports intermittent palpitations and states that he scheduled an appointment with his primary care doctor and when he arrived to the [facility] he was having significant palpitations and unable to catch his breath. Patient was found to b e in A. fib RVR and immediately sent to the hospital. Patient denies history of previous diagnosis of atrial fibrillation. Patient underwent full evaluation in the emergency department. Vital signs upon arrival revealed blood pressure 119/71, heart rate 146, respiratory rate 20, temp 98.6F, and SpO2 of 98% on room air. EKG completed confirming atrial fibrillation at a ventricular rate of 95 bpm, however patient was found to have RVR with rates exceeding up to 140s to 150s. Chest x-ray was completed, lungs appear clear and radiology report stating negative for acute cardiopulmonary process. Labs completed and reviewed. CBC unremarkable. BMP revealing slightly elevated BUN 23 and glucose of 116. Magnesium normal findings at 2.1. Liver profile unremarkable. Troponin negative at less than 0.012. TSH normal findings at 1.9. D-dimer was elevated at 3.61. Patient was sent for CTA chest to rule out PE, radiology report reviewed stating negative for acute pulmonary embolism showing posterior right lung base fat herniation from the abdomen. Patient was started on heparin infusion, given Cardizem bolus and started on Cardizem infusion in the emergency department. Patient admitted under our services to cardiac stepdown unit with telemetry. Consultation placed to cloth winder. Patient was weaned off of Cardizem infusion and metoprolol was increased to 50 mg twice daily from previous dose of 25 mg daily. At this time metoprolol appears to be controlling ventricular rate, patient remains in atrial fibrillation. Echocardiogram was completed showing a moderately decreased EF of 30-35% with mild left ventricular dilation and a hypokinetic inferior wall. Physical exam: Patient seen and fully evaluated at the bedside this morning. Patient reports he is currently free from chest pain or discomfort and states significant imp rovement of palpitations only feels some occasional. He currently remains in atrial fibrillation but is maintaining a controlled ventricular rate. Vital signs reviewed and stable. General: Nontoxic, no distress and appears stated age. Derm: Skin warm and dry, normal coloration for ethnicity. Head: Atraumatic, normocephalic and symmetric. Eyes: EOMs intact, no lid lag, and anicteric sclera Mouth: no lip lesions, mucus membranes moist Cardiovascular: Irregularly irregular, systolic murmur, positive posterior tibial pulses bilaterally, and cap refill < 2 seconds. Lungs: Respirations even, regular, and unlabored on room air. Lungs CTA bilaterally, no rhonchi, no rales, no wheezing, and no accessory muscle usage. Abdominal: soft, nontender to palpation, no guarding, no appreciable or ganomegaly Ext: ROM intact. No gross muscle atrophy, no edema, no contractures Neuro: Speech clear, face symmetrical and CN II-XII grossly intact with no noted focal neuro deficits Psych: Alert and oriented to person, place, time, and situation. Appropriate and pleasant affect. Assessment and Plan of Care: Atrial fibrillation with RVR History of CAD status post CABG Hypertension Hyperlipidemia -Patient was weaned off of Cardizem infusion and metoprolol tartrate was increased from 25 mg daily up to 50 mg twice daily. At this time metoprolol appears to be controlling ventricular rate, patient does remain in atrial fibrillation. -Echocardiogram was completed showing a moderately decreased EF of 30-35% with mild left ventricular dilation and a hypokinetic inferior wall. -Heparin infusion was discontinued and patient was started on oral anticoagulant with Eliquis 2.5 mg twice daily. -Cma Or Lpn following and discussed plan of care, he is recommending to continue current medication regimen and continued close monitoring of patient to watch for any arrhythmias in terms of sinus positives or sinus arrest. -Patient remained in continuous telemetry monitoring. -Continue current cardiac medication regimen with aspirin 81 mg daily, atorvastatin 20 mg daily, lisinopril 40 mg daily, metoprolol 50 mg twice daily. Restless legs, patient reports constant burning in legs times years resulting in difficulty lying still in bed -Continue Mirapex 0.5 mg nightly. Hernia -Patient asymptomatic denies chest pain or abdominal pain at this time. Recommend outpatient follow-up with adobe developer for evaluation and discussion of possible repair Data review: -Vital signs reviewed and stable. Blood pressure 122/64, heart rate 64, respiratory rate 18, and SpO2 of 97% on room air was temp 98.1F. -Morning labs reviewed and stable. CBC unremarkable with the exception of mild thrombocytopenia with platelet count of 135. BMP unremarkable with the exception of slightly elevated blood glucose level of 1:15. CODE STATUS: Full code DVT prophylaxis: Kyaraquis Discussed with: Patient, RN, and cloth winder Anticipated discharge date: Clinical course to determine Anticipated discharge place: Home Patient was seen independently by Nurse Practitioner. This document was prepared using [employer] dictation software. Please allow for errors in purchase order checker while rare they do occur. Dale Riley NP rendered care for this patient independently, reviewed the findings and plan as documented in the note above. I did not physically speak with or examine the patient on this date. Objective - Vital Signs Vital signs: Vital Signs Temp 98.2 F 12/28/22 04:00 Pulse 69 12/28/22 04:00 Resp 19 12/28/22 04:00 BP 108/77 12/28/22 04:00 Pulse Ox 95 12/28/22 04:00 FiO2 Intake & Output 12/27/22 12/28/22 12/28/22 18:59 06:59 18:59 Intake Total 251.75 90 Output Total 0 Balance 251.75 90 Weight 77.111 kg Intake: Intake, IV Titration 11.75 Amount Diltiazem 125 mg In 11.75 Sodium Chloride 0.9% 100 ml @ 5 MG/HR 5 mls/hr IV .Q24H [facility] Rx#:[id number] Oral 240 90 Output: Gastric Drainage 0 Urine 0 Stool 0 Urine/Stool Mix 0 Emesis 0 Oral Regurgitation 0 Other 0 Other: Voiding Method Toilet # Voids 1 2 0 # Bowel Movements 0 - Labs CBC & Chem 7: 12/28/22 08:13 12/28/22 08:13 Labs: Abnormal Lab Results - Last 24 Hours (Table) 12/27/22 12/27/22 12/27/22 Range/Units 12:21 12:21 20:19 Plt Count (150-450) k/uL APTT 21.2 L 44.7 H (22.0-30.0) sec D-Dimer 3.61 H (<0.60) mg/L FEU Sodium 136 L (137-145) mmol/L BUN 23 H (9-20) mg/dL Glucose 116 H (74-99) mg/dL 0712/28/22 12/28/22 Range/Units 08:13 08:13 08:13 Plt Count 135 L (150-450) k/uL APTT 37.2 H (22.0-30.0) sec D-Dimer (<0.60) mg/L FEU Sodium (137-145) mmol/L BUN (9-20) mg/dL Glucose 115 H (74-99) mg/dL
[2022-12-28] MEDS: ATORVASTATIN 20 MG TAB PO SCH (20:00)
[2022-12-28] MEDS: PRAMIPEXOLE 0.5 MG TAB PO SCH (20:00)
[2022-12-29 05:29] VITALS: RESP 18
--- NOTE | 2022-12-29 07:55 | P.PN ---
Subjective Progress Note Date: 12/29/22 Principal diagnosis: Atrial fibrillation The patient is a pleasant 87-year-old gentleman with a past medical history significant for CAD with prior CABG over 20 years with unknown details and also history of cardiomyopathy with an ejection fraction of 45% as well as hypertension and dyslipidemia. The patient presented to the hospital complaining of palpitations/heart racing for the last few days associated with dizziness and lightheadedness and no presyncope or syncope and no symptoms of chest pain or chest discomfort or shortness of breath. He decided to come to the hospital for further evaluation. He was found to be in atrial fibrillation with overall controlled heart rate. Subsequently the patient was admitted and started on IV heparin. He is asymptomatic at this point. He continues to be on heparin IV. He underwent further investigation including d-dimer which came in to be abnormal but subsequently CTA of the chest did not show any evidence of pulmonary embolism. Also he underwent an EKG which showed and confirmed atrial fibrillation with diffuse nonspecific ST and T wave abnormalities. Beside that the risks of the blood work including troponin came in to be unremarkable. December 292022 The patient was seen and evaluated this morning. He is asymptomatic from a cardiovascular standpoint overview. He is stable hemodynamically. He remains in atrial fibrillation with overall controlled heart rate on the current medical regimen. He is on oral anticoagulation which was started yesterday. He underwent an echo which revealed impaired LV function was EF around 35% with mild aortic insufficiency and moderate mitral insufficiency. The examination is remarkable for stable vital signs with irregular rhythm and controlled heart rate and clear breathing sounds bilaterally and no lower extremity edema noted Assessment Atrial fibrillation with controlled heart rate. This is a new diagnosis the patient Coronary artery disease with prior revascularization with CABG with unknown details History of cardiomyopathy Multiple comorbid conditions Plan Continue the current medical regimen Continue oral anticoagulation Objective - Vital Signs Vital signs: Vital Signs Temp 98.0 F 12/28/22 19:57 Pulse 76 12/29/22 04:00 Resp 18 12/29/22 04:00 BP 123/76 12/29/22 04:00 Pulse Ox 98 12/29/22 04:00 FiO2 Intake & Output 12/28/22 12/29/22 12/29/22 18:59 06:59 18:59 Intake Total 399.793 270 Output Total 0 0 Balance 399.793 270 Intake: IV 20 20 Invasive Line 1 20 20 Intake, IV Titration 169.793 Amount Heparin Sod,Pork in 0.45% 169.793 NaCl 25,000 unit In 0.45 % NaCl 1 250ml.bag @ 12 UNITS/KG/HR 9.253 mls/hr IV .Q24H [facility] Rx#: [id number] Oral 210 250 Output: Gastric Drainage 0 Urine 0 Stool 0 0 Urine/Stool Mix 0 Emesis 0 Oral Regurgitation 0 Other 0 Other: Voiding Method Toilet Toilet # Voids 2 2 # Bowel Movements 1 - Labs CBC & Chem 7: 12/28/22 08:13 12/28/22 08:13 Labs: Abnormal Lab Results - Last 24 Hours (Table) 12/28/22 12/28/22 12/28/22 Range/Units 08:13 08:13 08:13 Plt Count 135 L (150-450) k/uL APTT 37.2 H (22.0-30.0) sec Glucose 115 H (74-99) mg/dL
[2022-12-29 07:58] VITALS: BP 138/72; PULSE 72; TEMP 97.8
[2022-12-29] MEDS: APIXABAN 2.5 MG TABLET PO SCH (07:59)
[2022-12-29] MEDS: ASPIRIN 81 MG PO SCH (07:59)
[2022-12-29] MEDS: lisinopriL 20 MG TAB PO SCH (07:59)
[2022-12-29] MEDS: METOPROLOL TARTRATE 50 MG TAB PO SCH (07:59)
--- NOTE | 2022-12-29 10:51 | P.DS ---
Providers Date of admission: 12/28/22 09:46 Expected date of discharge: 12/29/22 Attending physician: Wai Pena MD Consults: 12/27/22 14:20 Consult Physician Urgent Consulting Provider: [facility] Consult Reason/Comments: new onset afib with rvr Do you want consulting provider notified?: Yes Primary care physician: Judy Trujillo Hospital Course: Discharge Diagnosis: Atrial fibrillation with RVR. Ventricular rate controlled on current medication regimen with metoprolol 50 mg twice daily. Patient was started on low-dose anticoagulation with Eliquis 2.5 mg twice daily. Echocardiogram completed revealing a reduced EF of 30-35% with mild ventricular dilation and a hypokinetic inferior wall. Cardiology clearing patient from their perspective recommending outpatient follow-up in office in 1 week. History of CAD status post CABG Hypertension Hyperlipidemia Restless legs, patient reports constant burning in legs times years resulting in difficulty lying still in bed. Patient reports having improvement and bilateral leg pain/burning he has been experiencing for years since been started on Mirapex 0.5 mg nightly. Pt being sent home with prescription for this medication. Hernia. Patient asymptomatic denies chest pain or abdominal pain at this time. Recommend outpatient follow-up with general surgery for evaluation and discussion of possible repair Hospital Course: Patient is a very pleasant 87-year-old male with a past medical history CAD status post CABG, hypertension, hyperlipidemia, restless leg syndrome and COPD. he presented to the emergency department on 12/27/22 with a chief complaint of palpitations. Patient reports this has been ongoing for months. Patient reports intermittent palpitations and states that he scheduled an appointment with his primary care doctor and when he arrived to the [facility] he was having significant palpitations and unable to catch his breath. Patient was found to be in A. fib RVR and immediately sent to the hospital. Patient denies history of previous diagnosis of atrial fibrillation. Patient underwent full evaluation in the emergency department. Vital signs upon arrival revealed blood pressure 119/71, heart rate 146, respiratory rate 20, temp 98.6F, and SpO2 of 98% on room air. EKG completed confirming atrial fibrillation at a ventricular rate of 95 bpm, however patient was found to have RVR with rates exceeding up to 140s to 150s. Chest x-ray was completed, lungs appear clear and radiology report stating negative for acute cardiopulmonary process. Labs completed and reviewed. CBC unremarkable. BMP revealing slightly elevated BUN 23 and glucose of 116. Magnesium normal findings at 2.1. Liver profile unremarkable. Troponin negative at less than 0.012. TSH normal findings at 1.9. D-dimer was elevated at 3.61. Patient was sent for CTA chest to rule out PE, radiology report reviewed stating negative for acute pulmonary embolism showing posterior right lung base fat herniation from the abdomen. Patient was started on heparin infusion, given Cardizem bolus and started on Cardizem infusion in the emergency department. Patient admitted under our services to cardiac stepdown unit with telemetry. Consultation placed to tilting head band sawyer. Patient was weaned off of Cardizem infusion and metoprolol was increased to 50 mg twice daily from previous dose of 25 mg daily. At this time metoprolol appears to be controlling ventricular rate, patient remains in atrial fibrillation. Echocardiogram was completed showing a moderately decreased EF of 30-35% with mild left ventricular dilation and a hypokinetic inferior wall. Patient has been maintaining a controlled ventricular rate on current medication regimen with metoprolol 50 mg twice a day. Discussed with tilting head band sawyer, Dr. Whatley stating patient clear from cardiac perspective for discharge recommending follow-up outpatient in the office next week. Patient is medically stable at this time and free from all complaints. Patient very eager to be discharged. Prescription sent to patient's pharmacy as requested, however patient pharmacy is not open on Sundays. 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 Physical exam: Vital signs reviewed and stable. General: Nontoxic, no distress and appears stated age. Derm: Skin warm and dry, normal coloration for ethnicity. Head: Atraumatic, normocephalic and symmetric. Eyes: EOMs intact, no lid lag, and anicteric sclera Mouth: no lip lesions, mucus membranes moist Cardiovascular: Irregularly irregular, systolic murmur, positive posterior tibial pulses bilaterally, and cap refill < 2 seconds. Lungs: Respirations even, regular, and unlabored on room air. Lungs CTA bilaterally, no rhonchi, no rales, no wheezing, and no accessory muscle usage. Abdominal: soft, nontender to palpation, no guarding, no appreciable organomegaly Ext: ROM intact. No gross muscle atrophy, no edema, no contractures Neuro: Speech clear, face symmetrical and CN II-XII grossly intact with no noted focal neuro deficits Psych: Alert and oriented to person, place, time, and situation. Appropriate and pleasant affect. A total of 35 minutes of time were spent preparing this complex discharge summary. Pt was discharged on 12/29/22 at 10:50 AM Patient was seen independently by Nurse Practitioner. This document was prepared using [employer] dictation software. Please allow for errors in maple sugar maker while rare they do occur. Dale Riley NP rendered care for this patient independently, reviewed the findings and plan as documented in the note above. I did not physically speak with or examine the patient on this date. Patient Condition at Discharge: Stable Plan - Discharge Summary Discharge Rx Participant: Yes New Discharge Prescriptions: New Apixaban [Eliquis] 2.5 mg PO BID 30 Days #60 tab Metoprolol Tartrate [Lopressor] 50 mg PO BID 30 Days #60 tab Pramipexole [Mirapex] 0.5 mg PO HS 30 Days #30 tab Continue Ramipril 10 mg PO DAILY Atorvastatin [Lipitor] 20 mg PO HS Albuterol Inhaler [Ventolin Hfa Inhaler] 1 - 2 puff INHALATION RT-Q6H PRN PRN Reason: Shortness Of Breath Aspirin EC [Ecotrin Low Dose] 81 mg PO DAILY Discontinued Metoprolol Tartrate [Lopressor] 25 mg PO DAILY Discharge Medication List Atorvastatin [Lipitor] 20 mg PO HS 01/13/16 [History] Ramipril 10 mg PO DAILY 01/13/16 [History] Aspirin EC [Ecotrin Low Dose] 81 mg PO DAILY 05/25/21 [History] Albuterol Inhaler [Ventolin Hfa Inhaler] 1 - 2 puff INHALATION RT-Q6H PRN 12/27/22 [History] Apixaban [Eliquis] 2.5 mg PO BID 30 Days #60 tab 12/29/22 [Rx] Metoprolol Tartrate [Lopressor] 50 mg PO BID 30 Days #60 tab 12/29/22 [Rx] Pramipexole [Mirapex] 0.5 mg PO HS 30 Days #30 tab 12/29/22 [Rx] Follow up Appointment(s)/Referral(s): Andrew Garvey MD [Medical Doctor] - 2 Weeks (possible evaluation of hernia noted on CT imaging) Bernabe Monzon MD [STAFF PHYSICIAN] - 1 Week (Please call tomorrow to schedule follow up appoitment. ) Judy Trujillo DO [Primary Care Provider] - 1-2 days (Please call tomorrow to schedule follow up appoitment) Patient Instructions/Handouts: A-fib (Atrial Fibrillation) (IP) Activity/Diet/Wound Care/Special Instructions: Activity: As tolerated. Take breaks as needed. Diet: Heart healthy and carb consistent diet. Avoid salts, or foods with hidden salts such as canned or boxed foods and frozen dinners. Extra salt makes your heart work harder and traps the fluid in your body for longer. Special Instructions: Take all of your medications as directed and remember to keep all of your doctor's appointments and follow-up as needed. You are also being discharged home on a blood thinner, Eliquis. This is very important to take daily as directed until otherwise advised by your tilting head band sawyer-Dr. Monzon. Being that you are being placed on a blood thinner it is very important to watch for any signs of bleeding and notify your doctor immediately if you notice any bleeding. It is also important to remove any trip hazards such as rugs or loose extension cords from your home to prevent unnecessary falls and if you do experience a fall or head injury, it is extremely important to be evaluated by a medical provider immediately to ensure no internal bleeding. Thank you for allowing us to participate in your care, it was truly a pleasure having you for our patient!!! Discharge Disposition: HOME SELF-CARE
== END 2022-12-29 11:24 | disposition home or self-care (01) ==
LOC: EC 10:54 → 3SCARD 14:21 → INTOOBSV 12-28 09:46 → OBSVTOIN 12-28 09:46 → UNDODISOB 12-29 11:24 → UNDODISIN 12-29 11:24
PROVIDERS: ADMIT Student in an Organized Health Care Education/Training Program; ATTEND Student in an Organized Health Care Education/Training Program
DX: I48.91 Unspecified atrial fibrillation (principal); K46.9 Unspecified abdominal hernia without obstruction or gangrene; I25.10 Atherosclerotic heart disease of native coronary artery without angina pectoris; E78.5 Hyperlipidemia, unspecified; I10 Essential (primary) hypertension; F12.90 Cannabis use, unspecified, uncomplicated; I70.0 Atherosclerosis of aorta; J43.9 Emphysema, unspecified; G25.81 Restless legs syndrome; I42.9 Cardiomyopathy, unspecified; I08.3 Combined rheumatic disorders of mitral, aortic and tricuspid valves; D69.6 Thrombocytopenia, unspecified; Z95.1 Presence of aortocoronary bypass graft; Z79.899 Other long term (current) drug therapy; Z79.82 Long term (current) use of aspirin; Z79.01 Long term (current) use of anticoagulants; Z90.49 Acquired absence of other specified parts of digestive tract; Z87.891 Personal history of nicotine dependence; Z82.49 Family history of ischemic heart disease and other diseases of the circulatory system
CPT/HCPCS: 96366 ×3; 96376; 96361; 96365; 96367; 99285; 36415; 93005; 93306; 85379; 80053; 80048; 84443; 83735; 84484; 85025 ×2; 85610 ×2; 85730 ×2; 71046; 71275; G0378 ×3; J1644 ×2; Q9967

== ENCOUNTER 2023-02-03 10:52 | Emergency (ER) | payer MEDICARE ==
[2023-02-03 11:15] VITALS: TEMP 98
[2023-02-03] MEDS ORDERED: SODIUM CHLORIDE 0.9% 500 ML 500 ML IV STA (11:39)
--- NOTE | 2023-02-03 11:43 | ED ---
General Adult HPI - General Chief complaint: Dizziness Stated complaint: dizziness Time Seen by Provider: 02/03/23 11:15 Source: patient, RN notes reviewed, old records reviewed Mode of arrival: ambulatory Limitations: no limitations - History of Present Illness Initial comments: This is an 87-year-old male presents emergency Department complaining of d izziness. Patient states this started yesterday and was severe. Patient states every time it occurred needed to sit down because he thought it follow. Patient denies any headache patient denies numbness weakness. Patient denies any palpitations or chest pain. Patient denies shortness of breath or difficulty breathing. Patient states moving of his head side to side did seem to increase some of the dizziness but not to this severity of that was. Patient denies any recent fever chills or cough. Patient denies any nausea vomiting diarrhea. - Related Data Home Medications Medication Instructions Recorded Confirmed Atorvastatin [Lipitor] 20 mg PO HS 01/13/16 02/03/23 Ramipril 10 mg PO DAILY 01/13/16 02/03/23 Aspirin EC [Ecotrin Low Dose] 81 mg PO DAILY 05/25/21 02/03/23 Albuterol Inhaler [Ventolin Hfa 1 - 2 puff INHALATION RT-Q6H PRN 12/27/22 0 02/03/23 Inhaler] Previous Rx's Medication Instructions Recorded Apixaban [Eliquis] 2.5 mg PO BID 30 Days #60 tab 12/29/22 Metoprolol Tartrate [Lopressor] 50 mg PO BID 30 Days #60 tab 12/29/22 Pramipexole [Mirapex] 0.5 mg PO HS 30 Days #30 tab 12/29/22 Meclizine [Antivert] 25 mg PO TID #20 tab 02/03/23 Allergies Allergy/AdvReac Type Severity Reaction Status Date / Time No Known Allergies Allergy Verified 02/03/23 12:36 Review of Systems ROS Statement: Those systems with pertinent positive or pertinent negative responses have been documented in the HPI. ROS Other: All systems not noted in ROS Statement are negative. Past Medical History Past Medical History: Coronary Artery Disease (CAD), Hyperlipidemia, Hypertension, Osteoarthritis (OA) History of Any Multi-Drug Resistant Organisms: None Reported Past Surgical History: Appendectomy, Cholecystectomy, Coronary Bypass/CABG Past Anesthesia/Blood Transfusion Reactions: No Reported Reaction Past Psychological History: No Psychological Hx Reported Smoking Status: Former smoker Past Alcohol Use History: Occasional Past Drug Use History: Marijuana - Past Family History Mother Family Medical History: Coronary Artery Disease (CAD) Father History Unknown: Yes General Exam - General Exam Comments Initial Comments: GENERAL: Patient is well-developed and well-nourished. Patient is nontoxic and well- hydrated and is in mild distress. ENT: Neck is soft and supple. No significant lymphadenopathy is noted. Oropharynx is clear. Moist mucous membranes. Neck has full range of motion without eliciting any pain. EYES: The sclera were anicteric and conjunctiva were pink and moist. Extraocular movements were intact and pupils were equal round and reactive to light. Eyelids were unremarkable. PULMONARY: Unlabored respirations. Good breath sounds bilaterally. No audible rales rhonchi or wheezing was noted. CARDIOVASCULAR: There is a regular rate and rhythm without any murmurs gallops or rubs. ABDOMEN: Soft and nontender with normal bowel sounds. SKIN: Skin is clear with no lesions or rashes and otherwise unremarkable. NEUROLOGIC: Patient is alert and oriented x3. Cranial nerves II through XII are grossly intact. Motor and sensory are also intact. Normal speech, volume and content. Symmetrical smile. Finger to nose testing was normal bilaterally MUSCULOSKELETAL: Normal extremities with adequate strength and full range of motion. No lower extremity swelling or edema. No calf tenderness. LYMPHATICS: No significant lymphadenopathy is noted PSYCHIATRIC: Normal psychiatric evaluation. Limitations: no limitations Course Vital Signs 02/03/23 02/03/23 02/03/23 11:13 11:58 12:00 Temperature 98 F Pulse Rate 72 Pulse Rate [ 55 L Sitting Warp Dyeing Vat Tender] Pulse Rate [ Standing Warp Dyeing Vat Tender ] Pulse Rate [ 56 L Supine Warp Dyeing Vat Tender] Respiratory 18 16 18 Rate Blood Pressure 169/75 Blood Pressure 121/81 [Right Arm Sitting] Blood Pressure [Right Arm Standing] Blood Pressure 122/63 [Right Arm Supine] O2 Sat by Pulse 100 97 97 Oximetry 02/03/23 12:02 Temperature Pulse Rate Pulse Rate [ Sitting Warp Dyeing Vat Tender] Pulse Rate [ 59 L Standing Warp Dyeing Vat Tender ] Pulse Rate [ Supine Warp Dyeing Vat Tender] Respiratory 16 Rate Blood Pressure Blood Pressure [Right Arm Sitting] Blood Pressure 140/60 [Right Arm Standing] Blood Pressure [Right Arm Supine] O2 Sat by Pulse 98 Oximetry Medical Decision Making - Medical Decision Making EKG was interpreted by myself shows sinus bradycardia with occasional PVC at a rate of 57 bpm MS interval is 184 QRS is 100 QT interval 396 QTC is 300 Was pt. sent in by a medical professional or institution ([facility]EE[facility] Banks, MANAGER STUDY, urgent care, hospital, or skilled nursing...) When possible be specific @ -No Did you speak to anyone other than the patient for history (EMS, parent, family, police, friend...)? What history was obtained from this source @ -Son gives some of the history Did you review nursing and triage notes (agree or disagree)? Why? @ -I reviewed and agree with nursing and triage notes Were old charts reviewed (outside hosp., previous admission, EMS record, old EKG, old radiological studies, urgent care reports/EKG's, skilled nursing records)? Report findings @ -I reviewed prior lab work prior radiological studies on this patient Differential Diagnosis (chest pain, altered mental status, abdominal pain women, abdominal pain men, vaginal bleeding, weakness, fever, dyspnea, syncope, headache, dizziness, GI bleed, back pain, seizure, CVA, palpatations, mental health, musculoskeletal)? @ -Differential Dizziness: Benign paroxysmal positional Vertigo, Menieres disease, otitis media, acoustic neuroma, vertebrobasilar insufficiency, cerebellar stroke, encephalitis, hypovolemic, arrhythmia, coronary artery syndrome, anemia, this is not meant to be an all-inclusive list EKG interpreted by me (3pts min.). @ -As above X-rays interpreted by me (1pt min.). @ -Chest x-ray showed no acute abnormality CT interpreted by me (1pt min.). @ -CT of the brain shows no acute abnormality U/S interpreted by me (1pt. min.). @ -None done What testing was considered but not performed or refused? (CT, X-rays, U/S, labs)? Why? @ -None What meds were considered but not given or refused? Why? @ -None Did you discuss the management of the patient with other professionals (professionals i.e. GEE[facility] Banks, MANAGER STUDY, lab, RT, psych nurse, social media assistant, sort line worker, teacher, credit officer, case monitor)? Give summary @ -No Was smoking cessation discussed for >3mins.? @ -No Was critical care preformed (if so, how long)? @ -No Were there social determinants of health that impacted care today? How? (Homelessness, low income, unemployed, alcoholism, drug addiction, transportation, low edu. Level, literacy, decrease access to med. care, nursing home, rehab)? @ -No Was there de-escalation of care discussed even if they declined (Discuss DNR or withdrawal of care, Hospice)? DNR status @ -No What co-morbidities impacted this encounter? (DM, HTN, Smoking, COPD, CAD, Cancer, CVA, ARF, Chemo, Hep., AIDS, mental health diagnosis, sleep apnea, morbid obesity)? @ -None Was patient admitted / discharged? Hospital course, mention meds given and route, prescriptions, significant lab abnormalities, going to OR and other per tinent info. @ -She had vertigo-like symptoms. Patient was given Antivert and his dizziness seemed to improve. Patient was able to ablate to the bathroom. Patient never had any chest pain or shortness of breath. Patient will take Antivert at home when necessary for symptoms. If patient has any chest pain or difficulty breathing patient states she will return to the emergency department immediately Undiagnosed new problem with uncertain prognosis? @ -No Drug Therapy requiring intensive monitoring for toxicity (Heparin, Nitro, Insulin, Cardizem)? @ -No Were any procedures done? @ -No Diagnosis/symptom? @ -Vertigo Acute, or Chronic, or Acute on Chronic? @ -Acute Uncomplicated (without systemic symptoms) or Complicated (systemic symptoms)? @ -Complicated Side effects of treatment? @ -No Exacerbation, Progression, or Severe Exacerbation? @ -No Poses a threat to life or bodily function? How? (Chest pain, [place], [place], pneumonia, PE, COPD, DKA, ARF, appy, cholecystitis, CVA, Diverticulitis, Homicidal, Suicidal, threat to staff... and all critical care pts) @ -No - Lab Data Result diagrams: 02/03/23 11:42 02/03/23 11:42 Lab Results 02/03/23 02/03/23 02/03/23 Range/Units 11:42 11:42 11:42 WBC 5.1 (3.8-10.6) k/uL RBC 4.40 (4.30-5.90) m/uL Hgb 13.5 (13.0-17.5) gm/dL Hct 39.9 (39.0-53.0) % MCV 90.5 (80.0-100.0) fL MCH 30.6 (25.0-35.0) pg MCHC 33.8 (31.0-37.0) g/dL RDW 13.2 (11.5-15.5) % Plt Count 122 L (150-450) k/uL MPV 7.7 Neutrophils % 69 % Lymphocytes % 21 % Monocytes % 7 % Eosinophils % 2 % Basophils % 0 % Neutrophils # 3.5 (1.3-7.7) k/uL Lymphocytes # 1.1 (1.0-4.8) k/uL Monocytes # 0.3 (0-1.0) k/uL Eosinophils # 0.1 (0-0.7) k/uL Basophils # 0.0 (0-0.2) k/uL PT 10.0 (9.0-12.0) sec INR 0.9 (<1.2) APTT 22.8 (22.0-30.0) sec Sodium 136 L (137-145) mmol/L Potassium 4.8 (3.5-5.1) mmol/L Chloride 106 (98-107) mmol/L Carbon Dioxide 22 (22-30) mmol/L Anion Gap 8 mmol/L BUN 18 (9-20) mg/dL Creatinine 0.80 (0.66-1.25) mg/dL Est GFR (CKD-EPI)AfAm >90 (>60 ml/min/1.73 sqM) Est GFR (CKD-EPI)NonAf 82 (>60 ml/min/1.73 sqM) Glucose 106 H (74-99) mg/dL Calcium 9.3 (8.4-10.2) mg/dL Magnesium 2.0 (1.6-2.3) mg/dL Total Bilirubin 0.9 (0.2-1.3) mg/dL AST 64 H (17-59) U/L ALT 86 H (4-49) U/L Alkaline Phosphatase 93 (38-126) U/L Troponin I (0.000-0.034) ng/mL Total Protein 7.3 (6.3-8.2) g/dL Albumin 4.2 (3.5-5.0) g/dL 08/14/23 Range/Units 11:42 WBC (3.8-10.6) k/uL RBC (4.30-5.90) m/uL Hgb (13.0-17.5) gm/dL Hct (39.0-53.0) % MCV (80.0-100.0) fL MCH (25.0-35.0) pg MCHC (31.0-37.0) g/dL RDW (11.5-15.5) % Plt Count (150-450) k/uL MPV Neutrophils % % Lymphocytes % % Monocytes % % Eosinophils % % Basophils % % Neutrophils # (1.3-7.7) k/uL Lymphocytes # (1.0-4.8) k/uL Monocytes # (0-1.0) k/uL Eosinophils # (0-0.7) k/uL Basophils # (0-0.2) k/uL PT (9.0-12.0) sec INR (<1.2) APTT (22.0-30.0) sec Sodium (137-145) mmol/L Potassium (3.5-5.1) mmol/L Chloride (98-107) mmol/L Carbon Dioxide (22-30) mmol/L Anion Gap mmol/L BUN (9-20) mg/dL Creatinine (0.66-1.25) mg/dL Est GFR (CKD-EPI)AfAm (>60 ml/min/1.73 sqM) Est GFR (CKD-EPI)NonAf (>60 ml/min/1.73 sqM) Glucose (74-99) mg/dL Calcium (8.4-10.2) mg/dL Magnesium (1.6-2.3) mg/dL Total Bilirubin (0.2-1.3) mg/dL AST (17-59) U/L ALT (4-49) U/L Alkaline Phosphatase (38-126) U/L Troponin I <0.012 (0.000-0.034) ng/mL Total Protein (6.3-8.2) g/dL Albumin (3.5-5.0) g/dL Disposition Clinical Impression: Vertigo Disposition: HOME SELF-CARE Condition: Good Instructions (If sedation given, give patient instructions): Vertigo (ED) Prescriptions: Meclizine [Antivert] 25 mg PO TID #20 tab Is patient prescribed a controlled substance at d/c from ED?: No Referrals: Judy Trujillo DO [Primary Care Provider] - 1-2 days Time of Disposition: 13:52
[2023-02-03 11:50] LABS: Basophils % (A) 0 %; Eosinophils # (A) 0.1 k/uL (0-0.7); Eosinophils % (A) 2 %; HCT 39.9 % (39.0-53.0); HGB 13.5 gm/dL (13.0-17.5); Lymphocytes # (A) 1.1 k/uL (1.0-4.8); Lymphocytes % (A) 21 %; MCH 30.6 pg (25.0-35.0); MCHC 33.8 g/dL (31.0-37.0); MCV 90.5 fL (80.0-100.0); Mean Platelet Volume 7.7; Monocytes # (A) 0.3 k/uL (0-1.0); Monocytes % (A) 7 %; Neutrophils # (A) 3.5 k/uL (1.3-7.7); Neutrophils % (A) 69 %; Platelet Count 122 k/uL (150-450); RDW 13.2 % (11.5-15.5); WBC 5.1 k/uL (3.8-10.6)
--- NOTE | 2023-02-03 11:56 | XR ---
EXAMINATION TYPE: XR chest 2V DATE OF EXAM: 02/03/2023 COMPARISON: NONE HISTORY: Chest pain and shortness of breath. TECHNIQUE: Frontal and lateral views of the chest are obtained. FINDINGS: Lungs are hyperinflated. There is no focal air space opacity, pleural effusion, or pneumot horax seen. The cardiac silhouette size is within normal limits. There are midline sternotomy wires . The osseous structures are intact. IMPRESSION: No acute cardiopulmonary process.
[2023-02-03 12:10] LABS: INR 0.9 (<1.2); Partial Thromboplastin Time 22.8 sec (22.0-30.0)
[2023-02-03 12:12] LABS: ALT 86 U/L (4-49); AST 64 U/L (17-59); African American GFR (CKD) >90 (>60 ml/min/1.73 sqM); Albumin 4.2 g/dL (3.5-5.0); Alkaline Phosphatase 93 U/L (38-126); Anion Gap 8 mmol/L; Blood Urea Nitrogen 18 mg/dL (9-20); Calcium 9.3 mg/dL (8.4-10.2); Carbon Dioxide 22 mmol/L (22-30); Chloride 106 mmol/L (98-107); Glucose 106 mg/dL (74-99); Non-African American GFR(CKD) 82 (>60 ml/min/1.73 sqM); Potassium 4.8 mmol/L (3.5-5.1); Sodium 136 mmol/L (137-145); Total Bilirubin 0.9 mg/dL (0.2-1.3); Total Protein 7.3 g/dL (6.3-8.2)
[2023-02-03] MEDS ORDERED: MECLIZINE 25 MG TAB PO STA (12:59)
--- NOTE | 2023-02-03 13:32 | CT ---
EXAMINATION TYPE: CT brain wo con DATE OF EXAM: 02/03/2023 COMPARISON: 03/02/2022. HISTORY: Dizziness. CT DLP: 1104 mGycm Automated exposure control for dose reduction was used. FINDINGS: There is no acute intracranial hemorrhage, mass, mass effect, midline shift, extra-axial fluid collec tion or hydrocephalus. Diffuse atrophy is unchanged. The visualized paranasal sinuses and mastoid air cells are clear. IMPRESSION: NO ACUTE INTRACRANIAL PROCESS.
[2023-02-03 14:09] VITALS: BP 169/75; PULSE 59; RESP 16
== END 2023-02-03 14:12 | disposition home or self-care (01) ==
LOC: EC 10:52
DX: R42 Dizziness and giddiness (principal); I10 Essential (primary) hypertension; E78.5 Hyperlipidemia, unspecified; I25.10 Atherosclerotic heart disease of native coronary artery without angina pectoris; M19.90 Unspecified osteoarthritis, unspecified site; Z87.891 Personal history of nicotine dependence; F12.90 Cannabis use, unspecified, uncomplicated; Z79.82 Long term (current) use of aspirin; Z79.899 Other long term (current) drug therapy
CPT/HCPCS: 36415; 70450; 71046; 80053; 83735; 84484; 85025; 85610; 85730; 93005; 99285

== ENCOUNTER 2023-03-25 18:33 | Observation (INO) | payer MEDICARE ==
--- NOTE | 2023-03-25 18:52 | ED ---
Chest Pain HPI <Yesika Rivera - Last Filed: 03/25/23 18:52> <Zoe Gonzales - Last Filed: 03/26/23 01:59> - General Stated Complaint: dizziness/chest pains - History of Present Illness Initial Comments: Patient is a tobacco gentleman presents emergency room accompanied by his son for chest pain and dizziness. Patient started on any medication recently. (Yesika Rivera) Sagar is an 87-year-old male with history of CAD status post CABG over 20 years ago. Patient is brought to the ER today by family member for evaluation of lightheadedness, chest pain and feeling unsteady on his feet. Patient reports symptoms began about 3 to he feels lightheaded anytime he attempts to stand up and is very unsteady on his feet doesn't feel safe walking is been requiring assistance is not typical for him. Patient does report he's had some mild chest discomfort intermittently, not associated shortness of breath, diaphoresis. Chest pain is not exertional. No relief with rest. Patient states that today he had some numbness in his right arm as well but that lasted only a short period time and has resolved prior to arrival. There is no weakness in the arm. He had no trouble speech or swallowing. (Zoe Gonzales) - Related Data Home Medications Medication Instructions Recorded Confirmed Atorvastatin [Lipitor] 20 mg PO HS 01/13/16 02/03/23 Ramipril 10 mg PO DAILY 01/13/16 02/03/23 Aspirin EC [Ecotrin Low Dose] 81 mg PO DAILY 05/25/21 02/03/23 Albuterol Inhaler [Ventolin Hfa 1 - 2 puff INHALATION RT-Q6H PRN 12/27/22 02/03/23 Inhaler] Previous Rx's Medication Instructions Recorded Apixaban [Eliquis] 2.5 mg PO BID 30 Days #60 tab 12/29/22 Metoprolol Tartrate [Lopressor] 50 mg PO BID 30 Days #60 tab 12/29/22 Pramipexole [Mirapex] 0.5 mg PO HS 30 Days #30 tab 12/29/22 Meclizine [Antivert] 25 mg PO TID #20 tab 02/03/23 Allergies Allergy/AdvReac Type Severity Reaction Status Date / Time No Known Allergies Allergy Verified 03/25/23 19:08 Review of Systems ROS Other: All systems not noted in ROS Statement are negative. <Yesika Rivera - Last Filed: 03/25/23 18:52> ROS Other: All systems not noted in ROS Statement are negative. <Zoe Gonzales - Last Filed: 03/26/23 01:59> ROS Statement: Those systems with pertinent positive or pertinent negative responses have been documented in the HPI. EKG Findings - EKG Comments: EKG Findings:: EKG interpreted by me, EKG obtained due to complaint of chest pain, EKG obtained in 1944 rate is 64 rhythm is sinus. FL 176 QRS 120 QTC 400. No evidence of acute infarction. <Zoe Gonzales P - Last Filed: 03/26/23 01:59> Past Medical History Past Medical History: Coronary Artery Disease (CAD), Hyperlipidemia, Hypertension, Osteoarthritis (OA) History of Any Multi-Drug Resistant Organisms: None Reported Past Surgical History: Appendectomy, Cholecystectomy, Coronary Bypass/CABG Past Anesthesia/Blood Transfusion Reactions: No Reported Reaction Past Psychological History: No Psychological Hx Reported Smoking Status: Former smoker Past Alcohol Use History: Occasional Past Drug Use History: Marijuana - Past Family History Mother Family Medical History: Coronary Artery Disease (CAD) Father History Unknown: Yes <Yesika Rivera - Last Filed: 03/25/23 18:52> General Exam <Yesika Rivera - Last Filed: 03/25/23 18:52> <Zoe Gonzales - Last Filed: 03/26/23 01:59> - General Exam Comments Initial Comments: Visual Physical Exam Vital signs reviewed General: Well-appearing, nontoxic, no acute distress. Head: Normocephalic, atraumatic Eyes: PERRLA, EOMI ENT: Airway patent Chest: Nonlabored breathing Skin: No visual rash, normal skin tone Neuro: Alert and oriented 3 Musculoskeletal: No gross abnormalities (Yesika Rivera) Physical Exam GENERAL: Patient is well-developed and well-nourished. Patient is nontoxic and well-hydrated and is in no distress. HENT: Normocephalic, Atraumatic. EYES: PERRL, EOMI PULMONARY: Unlabored respirations. No audible rales rhonchi or wheezing was noted. CARDIOVASCULAR: There is a regular rate and rhythm without any murmurs gallops or rubs. Well healed Midline sternotomy incision ABDOMEN: Soft and nontender with normal bowel sounds. SKIN: Skin is clear with no lesions or rashes and otherwise unremarkable. : Deferred NEUROLOGIC: Patient is alert and oriented x3. Moving all extremities spontaneously Cranial nerves II through XII grossly intact NIH 0 Normal finger-nose and heel goodrich testing, Positive Romberg MUSCULOSKELETAL: Normal extremities with adequate strength and full range of motion. No lower extremity swelling or edema. No calf tenderness. PSYCHIATRIC: Normal psychiatric evaluation. (Zoe Gonzales) Course Vital Signs 03/25/23 03/25/23 03/25/23 19:03 21:18 22:36 Temperature 98.1 F Pulse Rate 71 60 Pulse Rate [ 61 Pulse Oximetery ] Respiratory 18 16 18 Rate Blood Pressure 148/67 135/60 Blood Pressure 134/65 [Sitting] Blood Pressure 124/72 [Standing] Blood Pressure 129/92 [Supine] O2 Sat by Pulse 98 95 Oximetry 03/26/23 00:21 Temperature Pulse Rate 55 L Pulse Rate [ Pulse Oximetery ] Respiratory 16 Rate Blood Pressure 134/65 Blood Pressure [Sitting] Blood Pressure [Standing] Blood Pressure [Supine] O2 Sat by Pulse 97 Oximetry Chest Pain MDM <Yesika Rivera - Last Filed: 03/25/23 18:52> <Zoe Gonzales - Last Filed: 03/26/23 01:59> - MDM Quick note portion of this exam was completed by MEKHI Gonzalez in triage. (Yesika Rivera) Was pt. sent in by a medical professional or institution (, PA, ENGINEERING GEOLOGIST, urgent care, hospital, or longterm...) When possible be specific @ -No Did you speak to anyone other than the patient for history (EMS, parent, family, police, friend...)? What history was obtained from this source @ -Son Did you review nursing and triage notes (agree or disagree)? Why? @ -I reviewed and agree with nursing and triage notes Were old charts reviewed (outside hosp., previous admission, EMS record, old EKG, old radiological studies, urgent care reports/EKG's, longterm records)? Report findings @ -No old charts were reviewed Differential Diagnosis (chest pain, altered mental status, abdominal pain women, abdominal pain men, vaginal bleeding, weakness, fever, dyspnea, syncope, headache, dizziness, GI bleed, back pain, seizure, CVA, palpatations, mental health, musculoskeletal)? @ -Differential Chest Pain: Stable Angina, Unstable Angina, STEMI, NSTEMI Aortic Dissection, Pneumothorax, Musculoskeletal, Esophageal Spasm GERD, Cholecystitis, Pancreatitis, Zoster, this is not meant to be an all-inclusive list. EKG interpreted by me (3pts min.). @ -As above X-rays interpreted by me (1pt min.). @ -No acute findings CT interpreted by me (1pt min.). @ -No obvious mass or bleed U/S interpreted by me (1pt. min.). @ -None done What testing was considered but not performed or refused? (CT, X-rays, U/S, labs)? Why? @ -None What meds were considered but not given or refused? Why? @ -None Did you discuss the management of the patient with other professionals (professionals i.e. , PA, ENGINEERING GEOLOGIST, lab, RT, psych nurse, social and human services assistant, podiatric foot and ankle specialist, teacher, transit police officer, home health care case manager)? Give summary @ -No Was smoking cessation discussed for >3mins.? @ -No Was critical care preformed (if so, how long)? @ -No Were there social determinants of health that impacted care today? How? (Homelessness, low income, unemployed, alcoholism, drug addiction, jeffery sportation, low edu. Level, literacy, decrease access to med. care, [facility], rehab)? @ -No Was there de-escalation of care discussed even if they declined (Discuss DNR or withdrawal of care, Hospice)? DNR status @ -No What co-morbidities impacted this encounter? (DM, HTN, Smoking, COPD, CAD, Cancer, CVA, ARF, Chemo, Hep., AIDS, mental health diagnosis, sleep apnea, morbid obesity)? @ -CAD Was patient admitted / discharged? Hospital course, mention meds given and route, prescriptions, significant lab abnormalities, going to OR and other pertinent info. @ -Admit Undiagnosed new problem with uncertain prognosis? @ -No Drug Therapy requiring intensive monitoring for toxicity (Heparin, Nitro, Insulin, Cardizem)? @ -No Were any procedures done? @ -No Diagnosis/symptom? @ -Chest pain, gait instability Acute, or Chronic, or Acute on Chronic? @ -default Uncomplicated (without systemic symptoms) or Complicated (systemic symptoms)? @ -default Side effects of treatment? @ -No Exacerbation, Progression, or Severe Exacerbation? @ -No Poses a threat to life or bodily function? How? (Chest pain, [place], [place], pneumonia, PE, COPD, DKA, ARF, appy, cholecystitis, CVA, Diverticulitis, Homicidal, Suicidal, threat to staff... and all critical care pts) @ -No (Zoe Gonzales) Disposition <Yesika Rivera - Last Filed: 03/25/23 18:52> <Zoe Gonzales - Last Filed: 03/26/23 01:59> Clinical Impression: Chest pain, Gait instability Disposition: ADMITTED IP TO THIS [facility] Condition: Stable Referrals: Judy Trujillo DO [Primary Care Provider] - 1-2 days
--- NOTE | 2023-03-25 19:24 | XR ---
EXAMINATION TYPE: XR chest 2V DATE OF EXAM: 03/25/2023 COMPARISON: Prior chest x-ray February 03, 2023 HISTORY: Chest pain and dizziness. TECHNIQUE: Frontal and lateral views of the chest are obtained. FINDINGS: Background chronic emphysematous changes are redemonstrated. Overlying sternal wires and me diastinal clips are redemonstrated. Surgical clips epigastric region again seen. There is no suspicio us new focal air space opacity, pleural effusion, or pneumothorax seen. The cardiac silhouette size is stable and within normal limits. The osseous structures are intact. IMPRESSION: Chronic changes without acute pulmonary process. No significant change from prior.
[2023-03-25 20:22] LABS: Basophils % (A) 0 %; Eosinophils # (A) 0.3 k/uL (0-0.7); Eosinophils % (A) 6 %; HCT 42.4 % (39.0-53.0); HGB 14.1 gm/dL (13.0-17.5); Lymphocytes % (A) 36 %; MCH 30.7 pg (25.0-35.0); MCHC 33.2 g/dL (31.0-37.0); MCV 92.4 fL (80.0-100.0); Mean Platelet Volume 7.7; Monocytes # (A) 0.5 k/uL (0-1.0); Monocytes % (A) 8 %; Neutrophils # (A) 2.7 k/uL (1.3-7.7); Neutrophils % (A) 48 %; Platelet Count 154 k/uL (150-450); RBC 4.59 m/uL (4.30-5.90); WBC 5.8 k/uL (3.8-10.6)
[2023-03-25 20:40] LABS: ALT 37 U/L (4-49); AST 41 U/L (17-59); African American GFR (CKD) >90 (>60 ml/min/1.73 sqM); Albumin 4.1 g/dL (3.5-5.0); Alkaline Phosphatase 80 U/L (38-126); Anion Gap 10 mmol/L; Blood Urea Nitrogen 22 mg/dL (9-20); Calcium 9.3 mg/dL (8.4-10.2); Carbon Dioxide 25 mmol/L (22-30); Chloride 104 mmol/L (98-107); Glucose 97 mg/dL (74-99); Non-African American GFR(CKD) 79 (>60 ml/min/1.73 sqM); Potassium 4.9 mmol/L (3.5-5.1); Sodium 139 mmol/L (137-145); Total Bilirubin 0.7 mg/dL (0.2-1.3); Total Protein 7.4 g/dL (6.3-8.2)
[2023-03-25 20:49] LABS: NT-Pro-B-Type Natriuretic Pept 614 pg/mL
[2023-03-25 21:22] LABS: Appearance,Urine Clear (Clear); Bilirubin,Urine Negative (Negative); Blood,Urine Trace (Negative); Color,Urine Colorless; Glucose,Urine (UA) Negative (Negative); Ketones,Urine Negative (Negative); Leukocyte Esterase,Urine Negative (Negative); Nitrite,Urine Negative (Negative); PH, Urine 5.5 (5.0-8.0); Protein,Urine Negative (Negative); RBC,Urine 1 /hpf (0-5); Specific Gravity,Urine 1.006 (1.001-1.035); Urobilinogen,Urine <2.0 mg/dL (<2.0); WBC,Urine 1 /hpf (0-5)
--- NOTE | 2023-03-25 22:05 | CT ---
EXAMINATION TYPE: CT brain wo con DATE OF EXAM: 03/25/2023 HISTORY: Pt c/o dizziness x 3 days. Pt states yesterday he had numbness to rt arm and chest pain. CT DLP: 1228.4 mGycm. Automated Exposure Control for Dose Reduction was Utilized. TECHNIQUE: CT scan of the head is performed without contrast. COMPARISON: Prior CT brain February 03, 2023. FINDINGS: There is no acute intracranial hemorrhage or midline shift identified. There is mild diff use ventricular and sulcal prominence redemonstrated. Serrano-white matter to penetration fairly well pr eserved. The globes are intact and the visualized sinuses are clear. IMPRESSION: No acute intracranial hemorrhage or midline shift. No significant change from most recen t prior. MRI noted more sensitive to evaluate for acute ischemia.
[2023-03-26] MEDS ORDERED: NALOXONE 0.4 MG/ML 1 ML VIAL IV PRN (01:53)
[2023-03-26] MEDS ORDERED: ASPIRIN 81 MG PO STA (01:56)
[2023-03-26] MEDS: METOPROLOL TARTRATE 50 MG TAB PO SCH ×2 (08:20→20:10)
[2023-03-26] MEDS: lisinopriL 20 MG TAB PO SCH (08:21)
[2023-03-26] MEDS: APIXABAN 2.5 MG TABLET PO SCH ×2 (08:21→20:10)
--- NOTE | 2023-03-26 08:54 | P.CRDCN ---
History of Present Illness Consult date: 03/26/23 Consult reason: chest pain History of present illness: History of present illness: This is an 87-year-old male patient of Dr. Swartz with past medical history of coronary artery disease status post 5 vessel CABG, typical atrial flutter, ischemic cardiomyopathy with EF of 35%, hypertension, hyperlipidemia. Patient had a recent hospitalization in December of this year which time he was diagnosed with new onset of atrial fibrillation. Echocardiogram at that time revealed EF of 35% with moderate MR and mild aortic insufficiency. We have been asked to evaluate the patient for chest pain with history of coronary artery disease. Patient states he came in the hospital due to dizziness is happening at any time. Is not certain when he stands from a sitting position. He denies spinning of the room. He denies syncope episode. He states he has trouble with his vision and his balance is off. He denies having any chest pain for the most part but had an episode that lasted for 5 minutes yesterday and was tightness and went away on its own without any treatment. Orthostatics were obtained which were negative. Patient states he is feeling fine at the time of evaluation. Telemetry has been reviewed and no episodes of tachycardia or sign ificant bradycardia. EKG sinus rhythm with ventricular rate of 64. Chest x-ray: No acute findings. CAT scan of brain no acute findings. CBC within normal limits. Electrolytes normal. Liver function tests are normal. Troponin negative 2. BUN 22 creatinine 0.87. ProBNP 6R 14. Home cardiac medications: Eliquis 2.5 mg twice daily, aspirin 81 mg daily, Lipitor 20 mg at bedtime, Lopressor 50 mg twice daily, ramipril 10 mg daily Lexiscan Cardiolite stress test performed on 02/27/2023 in the office was nondiagnostic electrocardiographic testing. Abnormal myocardial perfusion and imaging with prior MRI involving the inferior, inferior apical and inferior lateral wall with segmental wall motion abnormalities consistent with prior [place] in the RCA territory. No evidence of stress-induced ischemia. Similar findings were noted on the stress test obtained in June 2021. Review Of Systems: At the time of my evaluation: Constitutional: No fever, no chills. No weakness, fatigue or lethargy. EENT: No headache. No dizziness. Lungs: No shortness of breath, cough, no sputum production. No wheezing. Cardiovascular: No chest pain, no lower extremity edema. No palpitations. No paroxysmal nocturnal dyspnea. No orthopnea. No lightheadedness or dizziness. No syncopal episodes. Abdominal: No abdominal pain. No nausea, vomiting. No diarrhea. No constipation. No bloody or tarry stools. Genitourinary: No dysuria.. No urinary retention. Musculoskeletal: No myalgias. No muscle weakness, no frequent falls. No back pain. No neck pain. Integumentary: No wounds. No rash. No unusual bruising. Neurologic: No aphasia. No facial droop. No change in mentation. No head injury. No headache. Physical examination: Gen: This is an 87-year-old male. He is resting in bed and appears to be comfortable and in no acute distress. VS: reviewed HEENT: Head is atraumatic, normocephalic. Pupils equal, round. Sclerae is anicteric. NECK: Supple. No JVD. . LUNGS: Clear to auscultation. No wheezes or rhonchi. No intercostal retractions. HEART: Regular rate and rhythm. No murmur. ABDOMEN: Soft No tenderness. EXTREMITIES: No pedal edema. No calf tenderness. NEUROLOGICAL: Patient is awake, alert and oriented x3. Assessment: Dizziness, balance off Brief episode of chest discomfort yesterday, acute coronary syndrome ruled out History of coronary artery disease with 5 vessel CABG Typical atrial flutter Ischemic cardiomyopathy Hypertension Hyperlipidemia Plan: Repeat orthostatic vital signs Resume patient's home cardiac medications Obtain limited 2-D echocardiogram Ambulate patient and assess for symptoms Neurology consult is in place Further recommendations to follow based upon clinical course Thank you kindly for this consultation. Nurse practitioner note has been reviewed, I agree with documented findings and plan of care. Patient was seen and examined. Past Medical History Past Medical History: Coronary Artery Disease (CAD), Hyperlipidemia, Hypertension, Osteoarthritis (OA) History of Any Multi-Drug Resistant Organisms: None Reported Past Surgical History: Appendectomy, Cholecystectomy, Coronary Bypass/CABG Past Anesthesia/Blood Transfusion Reactions: No Reported Reaction Past Psychological History: No Psychological Hx Reported Smoking Status: Former smoker Past Alcohol Use History: None Reported Past Drug Use History: Marijuana - Past Family History Mother Family Medical History: Coronary Artery Disease (CAD) Father History Unknown: Yes Medications and Allergies Home Medications Medication Instructions Recorded Confirmed Type Atorvastatin [Lipitor] 20 mg PO HS 01/13/16 03/26/23 History Ramipril 10 mg PO DAILY 01/13/16 03/26/23 History Aspirin EC [Ecotrin Low Dose] 81 mg PO DAILY 05/25/21 03/26/23 History Albuterol Inhaler [Ventolin Hfa 1 - 2 puff INHALATION RT-Q6H PRN 12/27/22 03/26/23 History Inhaler] Apixaban [Eliquis] 2.5 mg PO BID 30 Days #60 tab 12/29/22 03/26/23 Rx Metoprolol Tartrate [Lopressor] 50 mg PO BID 30 Days #60 tab 12/29/22 03/26/23 Rx Pramipexole [Mirapex] 0.5 mg PO HS 30 Days #30 tab 12/29/22 03/26/23 Rx Allergies Allergy/AdvReac Type Severity Reaction Status Date / Time No Known Allergies Allergy Verified 03/26/23 06:36 Physical Exam Vitals: Vital Signs Temp Pulse Pulse Resp BP BP BP 03/26/23 07:00 97.7 F 56 L 16 03/26/23 02:14 97.6 F 55 L 16 03/26/23 00:21 55 L 16 134/65 03/25/23 22:36 61 18 134/65 124/72 03/25/23 21:18 60 16 135/60 03/25/23 19:03 98.1 F 71 18 148/67 BP Pulse Ox 03/26/23 07:00 134/72 98 03/26/23 02:14 144/83 98 03/26/23 00:21 97 03/25/23 22:36 129/92 03/25/23 21:18 95 03/25/23 19:03 98 Intake and Output 03/25/23 03/26/23 03/26/23 22:59 06:59 14:59 Other: Weight 77.111 kg 77.111 kg Results 03/25/23 19:46 03/25/23 19:46 Cardiac Enzymes 03/25/23 03/25/23 03/26/23 Range/Units 19:46 19:46 02:15 AST 41 (17-59) U/L Troponin I <0.012 <0.012 (0.000-0.034) ng/mL CBC 03/25/23 Range/Units 19:46 WBC 5.8 (3.8-10.6) k/uL RBC 4.59 (4.30-5.90) m/uL Hgb 14.1 (13.0-17.5) gm/dL Hct 42.4 (39.0-53.0) % Plt Count 154 (150-450) k/uL Comprehensive Metabolic Panel 03/25/23 Range/Units 19:46 Sodium 139 (137-145) mmol/L Potassium 4.9 (3.5-5.1) mmol/L Chloride 104 (98-107) mmol/L Carbon Dioxide 25 (22-30) mmol/L BUN 22 H (9-20) mg/dL Creatinine 0.87 (0.66-1.25) mg/dL Glucose 97 (74-99) mg/dL Calcium 9.3 (8.4-10.2) mg/dL AST 41 (17-59) U/L ALT 37 (4-49) U/L Alkaline Phosphatase 80 (38-126) U/L Total Protein 7.4 (6.3-8.2) g/dL Albumin 4.1 (3.5-5.0) g/dL Current Medications Generic Name Dose Route Start Last Admin Trade Name Freq PRN Reason Stop Dose Admin Naloxone HCl 0.2 mg 03/26/23 01:53 Naloxone 0.4 Mg/Ml 1 Ml Vial IV Q2M PRN Opioid Reversal Intake and Output 03/25/23 03/26/23 03/26/23 22:59 06:59 14:59 Other: Weight 77.111 kg 77.111 kg 03/25/23 19:46 03/25/23 19:46
--- NOTE | 2023-03-26 12:01 | CA ---
Transthoracic Echo Report Name: Sagar Dos Santos Age: 87 Gender: M : 1935 Exam Date: 03/26/2023 08:49 Exam Location: [facility] Ht (in): 70 Wt (lb): 170 Ordering Physician: Ailyn Wiggins Attending/Referring Phys: [id number], Feliciano Yarn Handler Kristy Mendoza [facility] Procedure CPT: Indications: LVF Cardiac Hx: Technical Quality: Fair Contrast 1: Total Dose (mL): Contrast 2: Total Dose (mL): MEASUREMENTS (Male / Female) Normal Values 2D ECHO LV Diastolic Diameter PLAX 4.6 cm 4.2 - 5.9 / 3.9 - 5.3 cm LV Systolic Diameter PLAX 3.9 cm IVS Diastolic Thickness 0.6 cm 0.6 - 1.0 / 0.6 - 0.9 cm LVPW Diastolic Thickness 1.0 cm 0.6 - 1.0 / 0.6 - 0.9 cm LV Relative Wall Thickness 0.3 LV Diastolic Volume MOD BP 129.7 cm??? 67 - 155 / 56 - 104 cm??? LV Systolic Volume MOD BP 73.3 cm??? 22 - 58 / 19 - 49 cm??? LV Ejection Fraction MOD BP 43.5 % >= 55 % LV Cardiac Index MOD BP 1643.1 cm???/min???m??? LV Diastolic Volume MOD 4C 118.2 cm??? LV Systolic Volume MOD 4C 66.2 cm??? LV Ejection Fraction MOD 4C 44.0 % LV Cardiac Index MOD 4C 1514.1 cm???/min???m??? LV Diastolic Length 4C 8.2 cm LV Systolic Length 4C 6.9 cm LV Diastolic Volume MOD 2C 142.5 cm??? LV Systolic Volume MOD 2C 75.5 cm??? LV Ejection Fraction MOD 2C 47.0 % LV Cardiac Index MOD 2C 1948.3 cm???/min???m??? LV Diastolic Length 2C 8.3 cm LV Systolic Length 2C 7.5 cm DOPPLER Mitral E Point Velocity 58.5 cm/s Mitral A Point Velocity 69.9 cm/s Mitral E to A Ratio 0.8 MV Deceleration Time 247.1 ms LV E' Lateral Velocity 11.2 cm/s Mitral E to LV E' Lateral Ratio 5.2 LV E' Septal Velocity 7.2 cm/s Mitral E to LV E' Septal Ratio 8.2 FINDINGS Left Ventricle Moderately increased left ventricular systolic volume. Moderately decreased left ventricular ejection fraction. Left ventricular wall thickness normal. Left ventricular cavity size normal. Left ventricular ejection fraction is estimated at 35-40%. Hypokinetic inferior wall. Right Ventricle Right Atrium Left Atrium Mitral Valve Aortic Valve Tricuspid Valve Pulmonic Valve Pericardium No pericardial effusion. Aorta CONCLUSIONS Limited for LV function. Moderate to severe LV systolic dysfunction secondary to prior inferior wall myocardial infarction with an ejection fraction of 35-40% Previewed by: Dr. Maxime Burgess MD (Electronically Signed) Final Date: 26 March 2023 12:00
[2023-03-26] MEDS ORDERED: ALBUTEROL NEBULIZED 2.5 MG/3 ML INHALATION PRN (12:03)
--- NOTE | 2023-03-26 12:44 | P.HPIM ---
History of Present Illness H&P Date: 03/26/23 Chief Complaint: Dizziness, chest pain This is an 87-year-old gentleman with past medical history significant for CAD, CABG, cardiomyopathy EF 35%, hypertension, hyperlipidemia, atrial fib/flutter,osteoarthritis, former nicotine dependence, marijuana use presented to the ER with complaints of dizziness, chest pain. Reports recent normal stress test with Dr. Swartz 03/15. He states he turned in his Holter monitor this past Friday. States dizziness has been present over the last 2-3 days occurs with walking too fast, standing up, none at rest, accompanied by transient no nradiating chest tightness that occurred yesterday lasting 2-3 minutes then spontaneously resolved. Denies heart racing, heart flutter, blurred vision, headache or shortness of breath. Denies room spinning. Denies dizziness with changing positions/turning of his head from side to side. Orthostatic vital signs in the ER reported negative. EKG reported sinus rhythm. Troponins negative 2. Chest x-ray reported nonacute, no significant change from prior. Brain CT reported no acute intracranial hemorrhage or midline shift, no significant change from recent prior. Afebrile. Hematology panel unremarkable. Electrolytes within normal limits, BUN 22, creatinine 0.87. UA negative. Evaluated by cardiology with recommendations noted and appreciated. Review of Systems ROS Statement: Those systems with pertinent positive or pertinent negative responses have been documented in the HPI. ROS Other: All systems not noted in ROS Statement are negative. Past Medical History Past Medical History: Coronary Artery Disease (CAD), Hyperlipidemia, Hypertension, Osteoarthritis (OA) History of Any Multi-Drug Resistant Organisms: None Reported Past Surgical History: Appendectomy, Cholecystectomy, Coronary Bypass/CABG Past Anesthesia/Blood Transfusion Reactions: No Reported Reaction Past Psychological History: No Psychological Hx Reported Smoking Status: Former smoker Past Alcohol Use History: None Reported Past Drug Use History: Marijuana - Past Family History Mother Family Medical History: Coronary Artery Disease (CAD) Father History Unknown: Yes Medications and Allergies Home Medications Medication Instructions Recorded Confirmed Type Atorvastatin [Lipitor] 20 mg PO HS 01/13/16 03/26/23 History Ramipril 10 mg PO DAILY 01/13/16 03/26/23 History Aspirin EC [Ecotrin Low Dose] 81 mg PO DAILY 05/25/21 03/26/23 History Albuterol Inhaler [Ventolin Hfa 1 - 2 puff INHALATION RT-Q6H PRN 12/27/22 03/26/23 History Inhaler] Apixaban [Eliquis] 2.5 mg PO BID 30 Days #60 tab 12/29/22 03/26/23 Rx Metoprolol Tartrate [Lopressor] 50 mg PO BID 30 Days #60 tab 12/29/22 03/26/23 Rx Pramipexole [Mirapex] 0.5 mg PO HS 30 Days #30 tab 12/29/22 03/26/23 Rx Allergies Allergy/AdvReac Type Severity Reaction Status Date / Time No Known Allergies Allergy Verified 03/26/23 06:36 Physical Exam Vitals: Vital Signs Temp Pulse Pulse Resp BP BP BP 03/26/23 08:00 56 L 16 03/26/23 07:00 97.7 F 56 L 16 03/26/23 02:14 97.6 F 55 L 16 03/26/23 00:21 55 L 16 134/65 03/25/23 22:36 61 18 134/65 124/72 03/25/23 21:18 60 16 135/60 03/25/23 19:03 98.1 F 71 18 148/67 BP Pulse Ox 03/26/23 08:00 03/26/23 07:00 134/72 98 03/26/23 02:14 144/83 98 03/26/23 00:21 97 03/25/23 22:36 129/92 03/25/23 21:18 95 03/25/23 19:03 98 Intake and Output 03/25/23 03/26/23 03/26/23 22:59 06:59 14:59 Other: Voiding Method Toilet Weight 77.111 kg 77.111 kg PHYSICAL EXAM: VITAL SIGNS: As above GENERAL: Sitting up at side of bed, no acute distress HEENT: Normocephalic Conjunctivae normal. eyes normal. NECK: Supple, No JVD. No thyroid enlargement. No LNs CARDIOVASCULAR: S1, S2 regular.No murmur. RESPIRATION: Unlabored, equal air entry, Breath sounds diminished in the bases. No rhonchi or crackles. No bronchial breathing. ABDOMEN: Soft, nondistended, nontender . No guarding. no masses palpable. No ascites, No hepatosplenomegaly.Bowel sounds heard. LEGS: No edema. no swelling PSYCHIATRY: Alert and oriented X3, mood and affect normal. NERVOUS SYSTEM: Cranial N 2-12 grossly normal. Moves all 4 limbs. No focal deficits. Strength and sensation grossly intact.. Skin: Warm and dry,no rash Results CBC & Chem 7: 03/25/23 19:46 03/25/23 19:46 Labs: Abnormal Lab Results - Last 24 Hours (Table) 03/25/23 03/25/23 Range/Units 19:46 20:51 BUN 22 H (9-20) mg/dL Urine Blood Trace H (Negative) Thrombosis Risk Factor Assmnt - Choose All That Apply Each Risk Factor Represents 3 Points: Age 75 years or older Thrombosis Risk Factor Assessment Total Risk Factor Score: 3 Thrombosis Risk Factor Assessment Level: Moderate Risk Assessment and Plan Assessment: Dizziness , etiology unclear; possibly related to blood pressure or blockage. Workup in progress. Transient nonradiating chest pressure that resolved after a few minutes. Chronic A.flutter,atrial fibrillation Ischemic cardiomyopathy CAD with history of CABG Hypertension Hyperlipidemia Restless leg syndrome Plan: Continue on current medication regime ,monitoring and symptomatic treatment. Echo/repeat orthostatics pending. Neurology consult in place, recommendations pending. Continues telemetry monitoring. PPI for GI prophylaxis ordered. Anticoagulated on Eliquis. The impression and plan of care has been dictated as directed. : I performed a history and examination of this patient, discussed the same with the dictator. I agree with the dictator's note ,documented as a scribe. Any additional findings or plans will be noted.
[2023-03-26] MEDS: PANTOPRAZOLE 40 MG/10 ML VIAL IVP SCH (12:46)
--- NOTE | 2023-03-26 20:17 | P.CNNES ---
History of Present Illness Consult date: 03/26/23 Requesting physician: Zoe Gonzales Reason for Consult: Balance issues History of Present Illness: Patient is a 87-year-old left-handed male came to the hospital yesterday at 6:33 PM for 1 month history of dizziness and tendency to fall. Patient states that for last 1 month he has been feeling dizzy, it has got worse the last 3 days. He denies vertigo, more like lightheadedness. He states that if he is walking, if he does not catch himself, he'll fall down. He has felt only once, couple days ago when he could not catch himself and fell on the grass, did not hit his head or hurt himself. The dizziness never happens when he is laying in the bed. Does not occur when he rolls over in the bed. Dizziness most frequently occurs when he gets up and starts walking fast. Sometimes while driving, he feels di zzy, and cannot drive. He states that prior to these symptoms, he was perfectly fine. He does not use any assistive device, lives by himself. His son does live 12 miles away and checks on him. He states that he does not get dizzy every time that he gets up and walks. Vital signs on arrival blood pressure 148/67, pulse rate 71 temperature 98.1. Orthostatics were checked, and his supine blood pressure 129/92, sitting 134/65 and standing was 124/72, negative orthostatics. Repeat orthostatics performed today were also negative. Patient's blood test shows normal CBC, CMP, troponin, UA. TSH is normal. EKG shows sinus rhythm. CT head revealed no acute intracranial hemorrhage or midline shift. No significant change from most recent prior. I personally reviewed CT head, agree with the findings. Chest x- ray revealed chronic changes without acute pulmonary process. No significant change from prior. Limited 2-D echo showed moderate to severe left ventricular systolic dysfunction secondary to prior inferior wall MN, with an ejection fraction of 35-40%. Hypokinetic inferior wall. Patient denies hypertension or diabetes. He does smoke marijuana a little. He smoked 2 packs per day from age 18 until 89 when he quit 25 years ago. Has not drank alcohol for 8 years, was never a heavy drinker. Denies any history of strokes or TIA in the past. Patient states that his legs always feels hot. His feet and lower legs feels like on fire at night and he wakes up about 3-4 times a night for last 6-7 years. He denies any symptoms in the hands. He denies any neck pain, any low back pain, any problem with urgency, or incontinence of urine. He does use hearing aids for long time, denies any tinnitus. Denies any pain or pressure in the ears. He is noticing occasional night sweats for last 4-5 weeks. Sometimes while sitting in chair he gets wet all over. Home medications include ramipril, Lipitor 20 mg, aspirin 81 mg, albuterol, eliquis 2.5 mg twice a day, metoprolol, Mirapex 0.5 mg at bedtime. 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 Review of Systems As mentioned above in HPI. All other review of systems reviewed and unremarkable. Neurological: Reports as per HPI Psychiatric: Denies anxiety, Denies depression Past Medical History Past Medical History: Coronary Artery Disease (CAD), Hyperlipidemia, Hype rtension, Osteoarthritis (OA) History of Any Multi-Drug Resistant Organisms: None Reported Past Surgical History: Appendectomy, Cholecystectomy, Coronary Bypass/CABG Past Anesthesia/Blood Transfusion Reactions: No Reported Reaction Past Psychological History: No Psychological Hx Reported Smoking Status: Former smoker Past Alcohol Use History: None Reported Past Drug Use History: Marijuana - Past Family History Mother Family Medical History: Coronary Artery Disease (CAD) Father History Unknown: Yes Medications and Allergies Home Medications Medication Instructions Recorded Confirmed Type Atorvastatin [Lipitor] 20 mg PO HS 01/13/16 03/26/23 History Ramipril 10 mg PO DAILY 01/13/16 03/26/23 History Aspirin EC [Ecotrin Low Dose] 81 mg PO DAILY 05/25/21 03/26/23 History Albuterol Inhaler [Ventolin Hfa 1 - 2 puff INHALATION RT-Q6H PRN 12/27/22 03/26/23 History Inhaler] Apixaban [Eliquis] 2.5 mg PO BID 30 Days #60 tab 12/29/22 03/26/23 Rx Metoprolol Tartrate [Lopressor] 50 mg PO BID 30 Days #60 tab 12/29/22 03/26/23 Rx Pramipexole [Mirapex] 0.5 mg PO HS 30 Days #30 tab 12/29/22 03/26/23 Rx Allergies Allergy/AdvReac Type Severity Reaction Status Date / Time No Known Allergies Allergy Verified 03/26/23 06:36 Physical Examination - Vital Signs Vital Signs: Vital Signs Temp Pulse Pulse Resp BP BP BP 03/26/23 15:00 97.9 F 65 16 151/67 137/67 03/26/23 14:00 56 L 16 03/26/23 08:00 56 L 16 03/26/23 07:00 97.7 F 56 L 16 03/26/23 02:14 97.6 F 55 L 16 03/26/23 00:21 55 L 16 134/65 03/25/23 22:36 61 18 134/65 124/72 03/25/23 21:18 60 16 135/60 BP Pulse Ox 03/26/23 15:00 130/66 97 03/26/23 14:00 03/26/23 08:00 03/26/23 07:00 134/72 98 03/26/23 02:14 144/83 98 03/26/23 00:21 97 03/25/23 22:36 129/92 03/25/23 21:18 95 Intake and Output 03/26/23 03/26/23 03/26/23 06:59 14:59 22:59 Intake Total 118 118 Balance 118 118 Intake: Oral 118 118 Other: Voiding Method Toilet # Voids 3 Weight 77.111 kg Patient is an elderly male, very pleasant in no acute distress. Patient is alert awake oriented to time place and person. Speech and language functions are normal. Patient can name and repeat very well. No aphasia or dysarthria. Attention, concentration and fund of knowledge is adequate. On cranial nerve examination, pupils are equal, round and reacting to light, visual coronel are full on confrontation, with no neglect on double simultaneous stimulation. Extraocular muscles are intact with no nystagmus. Face is symmetric, tongue protrudes to the midline. Palatal elevation and sensation normal, hearing is moderately decreased and he uses hearing aids. His shoulder shrug normal, facial sensation normal. On muscle strength testing, there is no pronator drift and the strength is normal in arms and legs distally and proximally. Deep tendon reflexes are symmetric 2 at the biceps, 2 brachioradialis, 1+ at the knees, 1 ankles and plantars downgoing bilaterally. Sensory to touch is equal with no neglect on double simultaneous stimulation. Cerebellar function showed some tremulousness for [id number] testing bilaterally but no ataxia. Patient has mild ataxia for [id number] testing on either side. Tone and bulk of muscles normal. Gait deferred.. On general examination, there is no carotid bruit or murmur, S1-S2 audible. Chest is clear on consultation. Abdomen is soft nontender. No organomegaly, bowel sounds present. Peripheral pulses are present. No edema. Patient has some bruises over his forearms. Results - Laboratory Findings CBC and BMP: 03/25/23 19:46 03/25/23 19:46 Abnormal Lab Findings: Abnormal Labs 03/25/23 03/25/23 19:46 20:51 BUN 22 H Urine Blood Trace H Assessment and Plan Assessment: * 1 month history of dizziness (lightheadedness, not vertigo), and tendency to fall, mainly when gets up and walks fast. Does not occur in laying position, or rolling over in the bed. Sometimes involves while sitting like in driving feels dizzy. * Mild ataxia lower limbs, burning sensation in the feet and lower limbs particularly at night, possible mild peripheral neuropathy. * Hard of hearing, uses hearing aids * CHF, on anticoagulation * Coronary artery disease * X tobacco use Plan: * We'll check B12, folate, MMA, B6 and hemoglobin A1c. * TSH is normal 1.90. * Carotid Doppler to rule out stenosis. * May need EMG and nerve conduction of lower extremities as outpatient, to rule out peripheral neuropathy * Patient has episodes of night sweats of unclear cause. Cardiology on board. * Orthostatics checked twice were negative. * PT, OT evaluate gait. * Neurology will follow. Thank you for the consult.
--- NOTE | 2023-03-26 20:57 | US ---
EXAMINATION TYPE: US carotid duplex BILAT DATE OF EXAM: 03/26/2023 COMPARISON: NONE CLINICAL INDICATION: Male, 87 years old with history of Dizziness, lightheadedness; dizziness TECHNIQUE: Carotid duplex ultrasound examination. Indirect Doppler criteria was utilized. FINDINGS: EXAM MEASUREMENTS: RIGHT: Peak Systolic Velocity (PSV) cm/sec ----- Right CCA: 84.9 ----- Right ICA: 136 ----- Right ECA: 120 ICA/CCA ratio: 1.6 RIGHT: End Diastole cm/sec ----- Right CCA: 13.1 ----- Right ICA: 28.5 ----- Right ECA: 8.99 LEFT: Peak Systolic Velocity (PSV) cm/sec ----- Left CCA: 79.4 ----- Left ICA: 111 ----- Left ECA: 98.2 ICA/CCA ratio: 1.4 LEFT: End Diastole cm/sec ----- Left CCA: 13.5 ----- Left ICA: 33.7 ----- Left ECA: 10.5 VERTEBRALS (direction of flow): Right Vertebral: Not seen Left Vertebral: Antegrade Rhythm: Normal MANAGER NUCLEAR NOTES: Mild plaque seen in bilateral bulbs IMPRESSION: 1. Mild atherosclerotic plaque in both carotid bulbs with less than 50% stenosis of the origin of th e right internal carotid artery. No significant stenosis of the left internal carotid artery. 2. Nonvisualization of the right vertebral artery. This can be further evaluated with CTA neck as cl inically indicated. Criteria for Assigning % of Stenosis / Diameter reduction (Estimation based on the indirect measurements of the internal carotid artery velocities (ICA PSV). 1. Normal (no stenosis)=ICA PSV < 125 cm/s: ratio < 2.0: ICA EDV<40 cm/s. 2. Less than 50% stenosis=ICA PSV < 125 cm/s: ratio < 2.0: ICA EDV<40 cm/s. 3. 50 to 69% stenosis=ICA PSV of 125 to 230 cm/s: ration 2.0 ? 4.0: ICA EDV 40-100 cm/s. 4. Greater than 70% stenosis to near occlusion= ICA PSV > 230 cm/s: ratio > 4.0: ICA EDV > 100 cm/s. 5. Near occlusion= ICA PSV velocities may be low or undetectable: variable ratio and ICA EDV. 6. Total occlusion=unable to detect flow.
[2023-03-26] MEDS ORDERED: ATORVASTATIN 20 MG TAB PO SCH (21:00)
[2023-03-27] MEDS: METOPROLOL TARTRATE 50 MG TAB PO SCH (08:31)
[2023-03-27] MEDS: lisinopriL 20 MG TAB PO SCH (08:31)
[2023-03-27] MEDS: APIXABAN 2.5 MG TABLET PO SCH (08:31)
[2023-03-27] MEDS: PANTOPRAZOLE 40 MG/10 ML VIAL IVP SCH (08:32)
[2023-03-27] MEDS ORDERED: ASPIRIN 81 MG PO SCH (09:00)
--- NOTE | 2023-03-27 09:20 | P.PN ---
Subjective Progress Note Date: 03/27/23 History of present illness: This is an 87-year-old male patient of Dr. Swartz with past medical history of coronary artery disease status post 5 vessel CABG, typical atrial flutter, ischemic cardiomyopathy with EF of 35%, hypertension, hyperlipidemia. Patient had a recent hospitalization in December of this year which time he was diagnosed with new onset of atrial fibrillation. Echocardiogram at that time revealed EF of 35% with moderate MR and mild aortic insufficiency. We have been asked to evaluate the patient for chest pain with history of coronary artery disease. Patient states he came in the hospital due to dizziness is happening at any time. Is not certain when he stands from a sitting position. He denies spinning of the room. He denies syncope episode. He states he has trouble with his vision and his balance is off. He denies having any chest pain for the most part but had an episode that lasted for 5 minutes yesterday and was tightness and went away on its own without any treatment. Orthostatics were obtained which were negative. Patient states he is feeling fine at the time of evaluation. Telemetry has been reviewed and no episodes of tachycardia or significant bradycardia. EKG sinus rhythm with ventricular rate of 64. Chest x-ray: No acute findings. CAT scan of brain no acute findings. CBC within normal limits. Electrolytes normal. Liver function tests are nilda l. Troponin negative 2. BUN 22 creatinine 0.87. ProBNP 6R 14. Home cardiac medications: Eliquis 2.5 mg twice daily, aspirin 81 mg daily, Lipitor 20 mg at bedtime, Lopressor 50 mg twice daily, ramipril 10 mg daily Lexiscan Cardiolite stress test performed on 02/27/2023 in the office was nondiagnostic electrocardiographic testing. Abnormal myocardial perfusion and imaging with prior MRI involving the inferior, inferior apical and inferior lateral wall with segmental wall motion abnormalities consistent with prior LA in the RCA territory. No evidence of stress-induced ischemia. Similar findings were noted on the stress test obtained in June 2021. 03/27 Patient is seen today in follow-up. He denies having any dizziness off balance sensation today. No chest pain and no shortness of breath. Echocardiogram reveals EF of 35-40% with prior inferior wall LA. This is similar to the prev ious reports. Repeat orthostatic vital signs are negative. Blood pressure 121/58, heart rate in the 60s. Pulse ox 97% on room air.telemetry is a sinus rhythm. Physical examination: Gen: This is an 87-year-old male. He is resting in bed and appears to be comfortable and in no acute distress. VS: reviewed HEENT: Head is atraumatic, normocephalic. Pupils equal, round. Sclerae is anict cristobal. LUNGS: Clear to auscultation. No wheezes or rhonchi. No intercostal retractions. HEART: Regular rate and rhythm. No murmur. ABDOMEN: Soft No tenderness. EXTREMITIES: No pedal edema. No calf tenderness. NEUROLOGICAL: Patient is awake, alert and oriented x3. Assessment: Dizziness, balance off Brief episode of chest discomfort yesterday, acute coronary syndrome ruled out History of coronary artery disease with 5 vessel CABG Typical atrial flutter Ischemic cardiomyopathy Hypertension Hyperlipidemia Plan: Continue patient's home cardiac medications Patient is cleared for discharge from cardiology and may follow up with Dr. Swartz in the office in 12 weeks. Nurse practitioner note has been reviewed, I agree with documented findings and plan of care. Patient was seen and examined. Objective - Vital Signs Vital signs: Vital Signs Temp 97.7 F 03/27/23 07:00 Pulse 61 03/27/23 07:00 Resp 14 03/27/23 07:00 BP 121/58 03/27/23 07:00 Pulse Ox 97 03/27/23 07:00 FiO2 Intake & Output 03/26/23 03/27/23 03/27/23 18:59 06:59 18:59 Intake Total 236 Balance 236 Intake: Oral 236 Other: Voiding Method Toilet Toilet # Voids 3 1 - Labs CBC & Chem 7: 03/25/23 19:46 03/25/23 19:46
[2023-03-27 14:12] VITALS: BP 130/71; PULSE 53; RESP 16; TEMP 97.5
--- NOTE | 2023-03-27 14:33 | P.PN ---
Subjective Progress Note Date: 03/27/23 History of Present Illness H&P Date: 03/26/23 Chief Complaint: Dizziness, chest pain This is an 87-year-old gentleman with past medical history significant for CAD, CABG, cardiomyopathy EF 35%, hypertension, hyperlipidemia, atrial fib/flutter, osteoarthritis, former nicotine dependence, marijuana use presented to the ER with complaints of dizziness, chest pain. Reports recent normal stress test with Dr. Swartz 03/15. He states he turned in his Holter monitor this past Friday. States dizziness has been present over the last 2-3 days occurs with walking too fast, standing up, none at rest, accompanied by transient nonradiating chest tightness that occurred yesterday lasting 2-3 minutes then spontaneously resolved. Denies heart racing, heart flutter, blurred vision, headache or shortness of breath. Denies room spinning. Denies dizziness with changing positions/turning of his head from side to side. Orthostatic vital signs in the ER reported negative. EKG reported sinus rhythm. Troponins negative 2. Chest x-ray reported nonacute, no significant change from prior. Brain CT reported no acute intracranial hemorrhage or midline shift, no significant change from recent prior. Afebrile. Hematology panel unremarkable. Electrolytes within normal limits, BUN 22, creatinine 0.87. UA negative. Evaluated by cardiology with recommendations noted and appreciated. 03/27/2023 echo reported moderate to severe LV systolic dysfunction secondary to prior inferior wall KS with EF 35-40%. Carotid Doppler reported less than 50% s tenosis of the origin of the right internal carotid artery, no significant stenosis of the left internal carotid artery, nonvisualization of the right vertebral artery. Ambulating in room, denies balance issues. Denies dizziness. Repeat orthostatic vital signs negative .Telemetry sinus rhythm. Denies chest pain, palpitations or shortness of breath. Maintaining O2 sats in the high 90s on room air. Hemoglobin A1c 5.8. Objective - Vital Signs Vital signs: Vital Signs Temp 97.5 F L 03/27/23 13:59 Pulse 53 L 03/27/23 13:59 Resp 16 03/27/23 13:59 BP 130/71 03/27/23 13:59 Pulse Ox 98 03/27/23 13:59 FiO2 Intake & Output 03/26/23 03/27/23 03/27/23 18:59 06:59 18:59 Intake Total 236 100 Balance 236 100 Intake: Oral 236 100 Other: Voiding Method Toilet Toilet # Voids 3 1 1 - Exam PHYSICAL EXAM: VITAL SIGNS: As above GENERAL: Alert and oriented 3, Sitting up in chair, no acute distress HEENT: Normocephalic Conjunctivae normal. eyes normal. NECK: Supple, No JVD. CARDIOVASCULAR: S1, S2 regular.No murmur. RESPIRATION: Unlabored, equal air entry, Breath sounds diminished in the bases. ABDOMEN: Soft, nondistended, nontender . No guarding. +BS. LEGS: No edema. no swelling NERVOUS SYSTEM: Cranial N 2-12 grossly normal.No focal deficits. Strength and sensation grossly intact. Skin: Warm and dry,no rash - Labs CBC & Chem 7: 03/25/23 19:46 03/25/23 19:46 Assessment and Plan Assessment: Dizziness , etiology unclear; possibly related to blood pressure or blockage. Workup in progress. Acute coronary syndrome ruled out. Transient nonradiating chest pressure that resolved after a few minutes. Heart of hearing, uses hearing aid Chronic A.flutter,atrial fibrillation Ischemic cardiomyopathy CAD with history of CABG Hypertension Hyperlipidemia Restless leg syndrome Plan: Continue on current medication regime ,monitoring and symptomatic treatment. PT evaluation pending. Cleared by cardiology for discharge. Discharge planning in progress pending final DC recommendations and clearance from neurology. Discussed balance training outpatient with PT. The impression and plan of care has been dictated as directed. : I performed a history and examination of this patient, discussed the same with the dictator. I agree with the dictator's note ,documented as a scribe. Any additional findings or plans will be noted.
[2023-03-27] MEDS ORDERED: CYANOCOBALAMIN 1,000 MCG/ML 1 ML VIAL IM ONE (15:53)
[2023-03-28] MEDS ORDERED: CYANOCOBALAMIN 500 MCG TAB PO SCH (09:00)
--- NOTE | 2023-03-28 11:02 | P.PN ---
Subjective Progress Note Date: 03/27/23 Patient was seen for a follow-up. Patient is feeling much better. Patient's son and [id number] were also present. Patient's telemetry monitoring showing sinus rhythm, with sinus bradycardia and some PVC. Objective - Vital Signs Vital signs: Vital Signs Temp 97.5 F L 03/27/23 13:59 Pulse 53 L 03/27/23 13:59 Resp 16 03/27/23 13:59 BP 130/71 03/27/23 13:59 Pulse Ox 98 03/27/23 13:59 FiO2 Intake & Output 03/26/23 03/27/23 03/27/23 18:59 06:59 18:59 Intake Total 236 100 Balance 236 100 Intake: Oral 236 100 Other: Voiding Method Toilet Toilet # Voids 3 1 1 - Exam Patient's mental status, speech and language functions are normal. Cranial nerves are normal. Slightly decreased hearing. Muscle strength is normal. Sensations equal. No ataxia for [id number] testing. Patient able to walk normally. He got up from the bed very fast, walked very stable without any assistive device. He turned around without difficulty. - Labs CBC & Chem 7: 03/25/23 19:46 03/25/23 19:46 Assessment and Plan Assessment: * 1 month history of dizziness (lightheadedness, not vertigo), and tendency to fall, mainly when gets up and walks fast. Does not occur in laying position, or rolling over in the bed. Sometimes involves while sitting like in driving feels dizzy. * Mild ataxia lower limbs, burning sensation in the feet and lower limbs particularly at night, possible mild peripheral neuropathy. * Hard of hearing, uses hearing aids * CHF, on anticoagulation * Coronary artery disease * X tobacco use Plan: * Patient's dizziness has resolved. He is walking perfectly normally. * B12 383, folate 16.7, MMA, B6 pending and hemoglobin A1c 5.8. Patient was given vitamin B12 1000 g IM 1 dose. He will be continued on vitamin B12 500 g orally daily. * TSH is normal 1.90. * Carotid Doppler revealed mild atherosclerotic plaque in both carotid bulbs with less than 50% stenosis of the origin of the right ICA. No significant stenosis of the left ICA. Nonvisualization of the right vertebral artery. This can be further evaluated with CTA neck as clinically indicated. Left vertebral head antegrade flow. * Patient already on aspirin 81 mg daily, and Eliquis 2.5 mg twice a day and Lipitor 20 mg. No indication for any other workup, as patient is already on maximal medical treatment. * May need EMG and nerve conduction of lower extremities as outpatient, to rule out peripheral neuropathy * Orthostatics checked twice were negative. * PT, OT evaluate gait. * Neurologically clear for discharge.
== END 2023-03-27 17:27 | disposition home or self-care (01) ==
LOC: EC 18:33 → 6NMEDSUR 03-26 01:54
PROVIDERS: ADMIT Family Medicine; ATTEND Family Medicine
DX: R07.89 Other chest pain (principal); R42 Dizziness and giddiness; I25.10 Atherosclerotic heart disease of native coronary artery without angina pectoris; I11.0 Hypertensive heart disease with heart failure; I50.9 Heart failure, unspecified; I65.21 Occlusion and stenosis of right carotid artery; I25.5 Ischemic cardiomyopathy; I48.3 Typical atrial flutter; I48.91 Unspecified atrial fibrillation; I08.0 Rheumatic disorders of both mitral and aortic valves; I49.3 Ventricular premature depolarization; R27.0 Ataxia, unspecified; R61 Generalized hyperhidrosis; R20.0 Anesthesia of skin; E78.5 Hyperlipidemia, unspecified; M19.90 Unspecified osteoarthritis, unspecified site; I25.2 Old myocardial infarction; G25.81 Restless legs syndrome; H91.90 Unspecified hearing loss, unspecified ear; Z79.82 Long term (current) use of aspirin; Z79.01 Long term (current) use of anticoagulants; Z79.899 Other long term (current) drug therapy; Z95.1 Presence of aortocoronary bypass graft; Z97.4 Presence of external hearing-aid; Z90.49 Acquired absence of other specified parts of digestive tract; Z87.891 Personal history of nicotine dependence; Z82.49 Family history of ischemic heart disease and other diseases of the circulatory system
CPT/HCPCS: 96376; 96372; 96374; 99285; 36415; 93005; 93308; 84207; 83921; 83880; 80053; 82607; 82746; 84484 ×2; 85025; 81001; 83036; 71046; 93880; 70450; G0378 ×2; J3420; C9113 ×2

== ENCOUNTER 2024-09-27 15:39 | Emergency (ER) | payer MEDICARE ==
[2024-09-27 15:58] VITALS: TEMP 97.9
[2024-09-27 16:35] LABS: Basophils # (A) 0.02 10*3/uL (0.00-0.10); Basophils % (A) 0.3 %; Eosinophils # (A) 0.22 10*3/uL (0.04-0.35); Eosinophils % (A) 3.4 %; HCT 40.9 % (39.6-50.0); HGB 14.2 g/dL (13.0-17.0); Lymphocytes # (A) 2.21 10*3/uL (0.90-5.00); Lymphocytes % (A) 34.6 %; MCH 30.9 pg (27.0-32.0); MCHC 34.7 g/dL (32.0-37.0); MCV 88.9 fL (80.0-97.0); Mean Platelet Volume 9.5 fL (9.5-12.2); Monocytes # (A) 0.55 10*3/uL (0.20-1.00); Monocytes % (A) 8.6 %; Neutrophils # (A) 3.38 10*3/uL (1.80-7.70); Neutrophils % (A) 52.9 %; Platelet Count 165 10*3/uL (140-440); RDW 12.5 % (11.5-14.5); WBC 6.39 10*3/uL (4.50-10.00)
[2024-09-27] MEDS: SODIUM CHLORIDE 0.9% 500 ML 500 ML IV STA (16:37)
[2024-09-27 16:51] LABS: ALT 27 U/L (4-49); AST 25 U/L (17-59); African American GFR (CKD) 83 (>60 ml/min/1.73 sqM); Albumin 4.2 g/dL (3.5-5.0); Alkaline Phosphatase 88 U/L (38-126); Anion Gap 8 mmol/L; Blood Urea Nitrogen 26 mg/dL (9-20); Calcium 9.7 mg/dL (8.4-10.2); Carbon Dioxide 26 mmol/L (22-30); Chloride 103 mmol/L (98-107); Glucose 111 mg/dL (74-99); Non-African American GFR(CKD) 72 (>60 ml/min/1.73 sqM); Potassium 4.8 mmol/L (3.5-5.1); Sodium 137 mmol/L (137-145); Total Bilirubin 0.7 mg/dL (0.2-1.3); Total Protein 7.1 g/dL (6.3-8.2)
[2024-09-27] MEDS: MECLIZINE 12.5 MG TAB PO STA (16:56)
[2024-09-27] MEDS: ONDANSETRON 4 MG/2 ML VIAL IVP STA (16:56)
--- NOTE | 2024-09-27 17:56 | CT ---
EXAMINATION TYPE: CT brain wo con DATE OF EXAM: 09/27/2024 COMPARISON: CT brain March 25, 2023 CLINICAL INDICATION: Male, 89 years old with history of dizziness, Dizziness x1wk. TECHNIQUE: CT scan of the head is performed without contrast. CT DLP: 1186.4 mGycm. Automated Exposure Control for Dose Reduction was Utilized. FINDINGS: There is no acute intracranial hemorrhage or midline shift identified. There is moderate diffuse ventricular and sulcal prominence redemonstrated. Serrano-white matter differentiation is mainta ined. No suspicious opacification of the mastoid air cells bilaterally. 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 The visualized sinuses are clear. IMPRESSION: No acute intracranial hemorrhage or midline shift. No significant change from most recen t prior CT. [facility], , 09/27/2024 5:54 PM
--- NOTE | 2024-09-27 18:18 | ED ---
Dizziness HPI - General Chief Complaint: Dizziness Stated Complaint: Dizziness Time Seen by Provider: 09/27/24 16:11 Source: patient, family, RN notes reviewed Mode of arrival: wheelchair Limitations: no limitations - History of Present Illness Initial Comments: 89-year-old male presents emergency department chief complaint of dizziness. Patient states he had symptoms last few days he was given Antivert by his PCP states that is not helping. Patient states that he was at home alone and states that he became very dizzy today unsteady on his feet. Denies any focal weakness no chest pain or shortness of breath. Denies any ear pain denies any recent nausea vomit diarrhea constipation no fevers or chills. - Related Data Home Medications Medication Instructions Recorded Confirmed Atorvastatin [Lipitor] 20 mg PO DAILY 01/13/16 09/27/24 Ramipril 10 mg PO DAILY 01/13/16 09/27/24 Aspirin EC [Ecotrin Low Dose] 81 mg PO DAILY 05/25/21 09/27/24 Clobetasol Propionate [Clobex 1 applic TOPICAL BID PRN 09/27/24 09/27/24 0.05% Soln] Ergocalciferol (Vitamin D2) 1,250 mcg PO Q30D 09/27/24 09/27/24 [Drisdol (50,000 Iu)] Meclizine [Antivert] 25 mg PO BID PRN 09/27/24 09/27/24 Omeprazole Magnesium [PriLOSEC OTC] 20 mg PO DAILY 09/27/24 09/27/24 Triamcinolone 0.1% Cream [Kenalog 1 applicatio TOPICAL BID PRN 09/27/24 09/27/24 0.1% Cream] Previous Rx's Medication Instructions Recorded Apixaban [Eliquis] 2.5 mg PO BID 30 Days #60 tab 12/29/22 Metoprolol Tartrate [Lopressor] 50 mg PO BID 30 Days #60 tab 12/29/22 Meclizine HCl [Antivert] 50 mg PO TID PRN #15 tablet 09/27/24 Allergies Allergy/AdvReac Type Severity Reaction Status Date / Time No Known Allergies Allergy Verified 09/27/24 16:30 Review of Systems ROS Statement: Those systems with pertinent positive or pertinent negative responses have been documented in the HPI. ROS Other: All systems not noted in ROS Statement are negative. Past Medical History Past Medical History: Coronary Artery Disease (CAD), Hyperlipidemia, Hypertension, Osteoarthritis (OA) History of Any Multi-Drug Resistant Organisms: None Reported Past Surgical History: Appendectomy, Cholecystectomy, Coronary Bypass/CABG Past Anesthesia/Blood Transfusion Reactions: No Reported Reaction Past Psychological History: No Psychological Hx Reported Smoking Status: Former smoker Past Alcohol Use History: None Reported Past Drug Use History: Marijuana - Past Family History Mother Family Medical History: Coronary Artery Disease (CAD) Father History Unknown: Yes General Exam Limitations: no limitations General appearance: alert, in no apparent distress Head exam: Present: atraumatic, normocephalic, normal inspection Eye exam: Present: normal appearance, PERRL, EOMI. Absent: scleral icterus, conjunctival injection, periorbital swelling ENT exam: Present: normal exam, normal oropharynx, mucous membranes moist Neck exam: Present: normal inspection, full ROM. Absent: tenderness, meningismus, lymphadenopathy Respiratory exam: Present: normal lung sounds bilaterally. Absent: respiratory distress, wheezes, rales, rhonchi, stridor Cardiovascular Exam: Present: regular rate, normal rhythm, normal heart sounds. Absent: systolic murmur, diastolic murmur, rubs, gallop, clicks Neurological exam: Present: alert, oriented X3, CN II-XII intact, reflexes normal. Absent: motor sensory deficit Skin exam: Present: warm, dry, intact, normal color. Absent: rash Course Vital Signs 09/27/24 15:56 Temperature 97.9 F Pulse Rate 69 Respiratory 16 Rate Blood Pressure 151/76 O2 Sat by Pulse 98 Oximetry EKG Findings - EKG Comments: EKG Findings:: EKG performed at 16: 11 sinus rhythm with a rate of 61 FL 192 QRS 115 QT/QTc 371/374 - EKG Results: EKG: interpreted by ERMD Medical Decision Making - Medical Decision Making Was pt. sent in by a medical professional or institution (, PA, RUBBER GOODS INSPECTOR, urgent care, hospital, or [facility]...) When possible be specific @ -No Did you speak to anyone other than the patient for history (EMS, parent, family, police, friend...)? What history was obtained from this source @ -No Did you review nursing and triage notes (agree or disagree)? Why? @ -I reviewed and agree with nursing and triage notes Were old charts reviewed (outside hosp., previous admission, EMS record, old EKG, old radiological studies, urgent care reports/EKG's, [facility] records)? Report findings @ -No old charts were reviewed Differential Diagnosis (chest pain, altered mental status, abdominal pain women, abdominal pain men, vaginal bleeding, weakness, fever, dyspnea, syncope, headache, dizziness, GI bleed, back pain, seizure, CVA, palpatations, mental health, musculoskeletal)? @ -Differential Dizziness: Benign paroxysmal positional Vertigo, Meniere's disease, otitis media, acoustic neuroma, vertebrobasilar insufficiency, cerebellar stroke, encephalitis, hypovolemic, arrhythmia, coronary artery syndrome, anemia, this is not meant to be an all-inclusive list EKG interpreted by me (3pts min.). @ -As above X-rays interpreted by me (1pt min.). @ -None done CT interpreted by me (1pt min.). @ -CT brain showing all degenerative changes no acute process U/S interpreted by me (1pt. min.). @ -None done What testing was considered but not performed or refused? (CT, X-rays, U/S, labs)? Why? @ -None What meds were considered but not given or refused? Why? @ -None Did you discuss the management of the patient with other professionals (professionals i.e. , PA, RUBBER GOODS INSPECTOR, lab, RT, psych nurse, social work specialist, arbor press operator, teacher, staff nuclear weapons officer, case aide)? Give summary @ -No Was smoking cessation discussed for >3mins.? @ -No Was critical care preformed (if so, how long)? @ -No Were there social determinants of health that impacted care today? How? (Homelessness, low income, unemployed, alcoholism, drug addiction, transportation, low edu. Level, literacy, decrease access to med. care, long term, rehab)? @ -No Was there de-escalation of care discussed even if they declined (Discuss DNR or withdrawal of care, Hospice)? DNR status @ -No What co-morbidities impacted this encounter? (DM, HTN, Smoking, COPD, CAD, Cancer, CVA, ARF, Chemo, Hep., AIDS, mental health diagnosis, sleep apnea, morbid obesity)? @ -None Was patient admitted / discharged? Hospital course, mention meds given and route, prescriptions, significant lab abnormalities, going to OR and other pertinent info. @ -Discharge patient's workup including CT EKG laboratory studies unremarkable patient feels great improved after Antivert 50 mg. Can ambulate without dizziness and feels comfortable discharge return parameters vee patient has no neurological deficits. Undiagnosed new problem with uncertain prognosis? @ -No Drug Therapy requiring intensive monitoring for toxicity (Heparin, Nitro, Insulin, Cardizem)? @ -No Were any procedures done? @ -No Diagnosis/symptom? @ -Vertigo Acute, or Chronic, or Acute on Chronic? @ -Acute Uncomplicated (without systemic symptoms) or Complicated (systemic symptoms)? @ -Uncomplicated Side effects of treatment? @ -No Exacerbation, Progression, or Severe Exacerbation? @ -No Poses a threat to life or bodily function? How? (Chest pain, [place], [place], pneumonia, PE, COPD, DKA, ARF, appy, cholecystitis, CVA, Diverticulitis, Homicidal, Suicidal, threat to staff... and all critical care pts) @ -No - Lab Data Result diagrams: 09/27/24 16:25 09/27/24 16:25 Lab Results 09/27/24 09/27/24 09/27/24 Range/Units 16:25 16:25 16:25 WBC 6.39 (4.50-10.00) 10*3/uL RBC 4.60 (4.40-5.60) 10*6/uL Hgb 14.2 (13.0-17.0) g/dL Hct 40.9 (39.6-50.0) % MCV 88.9 (80.0-97.0) fL MCH 30.9 (27.0-32.0) pg MCHC 34.7 (32.0-37.0) g/dL Plt Count 165 (140-440) 10*3/uL MPV 9.5 (9.5-12.2) fL Immature Gran % (Auto) 0.2 % Neutrophils % 52.9 % Lymphocytes % 34.6 % Monocytes % 8.6 % Eosinophils % 3.4 % Basophils % 0.3 % Immature Gran # 0.01 (0.00-0.04) 10*3/uL Neutrophils # 3.38 (1.80-7.70) 10*3/uL Lymphocytes # 2.21 (0.90-5.00) 10*3/uL Monocytes # 0.55 (0.20-1.00) 10*3/uL Eosinophils # 0.22 (0.04-0.35) 10*3/uL Basophils # 0.02 (0.00-0.10) 10*3/uL Sodium 137 (137-145) mmol/L Potassium 4.8 (3.5-5.1) mmol/L Chloride 103 (98-107) mmol/L Carbon Dioxide 26 (22-30) mmol/L Anion Gap 8 mmol/L BUN 26 H (9-20) mg/dL Creatinine 0.95 (0.66-1.25) mg/dL Est GFR (CKD-EPI)AfAm 83 (>60 ml/min/1.73 sqM) Est GFR (CKD-EPI)NonAf 72 (>60 ml/min/1.73 sqM) Glucose 111 H (74-99) mg/dL Calcium 9.7 (8.4-10.2) mg/dL Magnesium 2.0 (1.6-2.3) mg/dL Total Bilirubin 0.7 (0.2-1.3) mg/dL AST 25 (17-59) U/L ALT 27 (4-49) U/L Alkaline Phosphatase 88 (38-126) U/L Troponin I <0.012 (0.000-0.034) ng/mL Total Protein 7.1 (6.3-8.2) g/dL Albumin 4.2 (3.5-5.0) g/dL Disposition Clinical Impression: Vertigo Disposition: HOME SELF-CARE Condition: Stable Instructions (If sedation given, give patient instructions): Dizziness (ED) Additional Instructions: Please return to the Emergency Department if symptoms worsen or any other concerns. Prescriptions: Meclizine HCl [Antivert] 50 mg PO TID PRN #15 tablet PRN Reason: Dizziness Is patient prescribed a controlled substance at d/c from ED?: No Referrals: Jennifer Klein MD [Primary Care Provider] - 1-2 days Time of Disposition: 18:34
[2024-09-27 18:40] VITALS: BP 134/70; PULSE 60; RESP 18
[2024-09-27 18:59] LABS: Appearance,Urine Clear (Clear); Bilirubin,Urine Negative (Negative); Blood,Urine Negative (Negative); Color,Urine Colorless; Glucose,Urine (UA) Negative (Negative); Ketones,Urine Negative (Negative); Leukocyte Esterase,Urine Negative (Negative); Nitrite,Urine Negative (Negative); Protein,Urine Negative (Negative); Specific Gravity,Urine 1.005 (1.001-1.035); Urobilinogen,Urine <2.0 mg/dL (<2.0)
== END 2024-09-27 18:39 | disposition home or self-care (01) ==
LOC: EC 15:39
DX: R42 Dizziness and giddiness (principal); Z87.891 Personal history of nicotine dependence
CPT/HCPCS: 36415; 93005; 80053; 83735; 84484; 85025; 81003; 70450; 99284; 96374; J2405